=== PATIENT | female | born 1960 | race African-American/Black ===

== ENCOUNTER 2017-06-10 07:04 | Inpatient (IN) | payer MEDICARE, MEDICAID ==
[~2017-06-10] VITALS: Ht 172.7 cm; Wt 94.3 kg
[~2017-06-10 07:04] MED LIST: AMLODIPINE BESYL5 MG ORAL; DEPAKOTE500 MG PO; DICLOFENAC SODI75 MG ORAL; DITROPAN10 MG ORAL; JANUVIA100 MG ORAL; LOSARTAN POTASS50 MG ORAL; METFORMIN HCL1000 M1 ORAL; OMEPRAZOLE40 M1 ORAL; PAXIL20 MG ORAL; PRANDIN1 MG ORAL; ROXICODONE15 MG ORAL; SEROQUEL100 MG ORAL; SOMA350 MG PO
[2017-06-10 07:08] VITALS: BP 129/82
[2017-06-10] MEDS ORDERED: HYDROmorphone 1mg/ml Carpuject IVP ONE (07:30)
[2017-06-10] MEDS ORDERED: DiphenhydrAMINE 50mg/ml Inj IVP ONE (07:30)
[2017-06-10] MEDS ORDERED: XYZAL5 MG ORAL (07:38)
--- NOTE | 2017-06-10 07:41 | Emergency Room Report ---
History of Present Illness General Chief Complaint: Abdominal Pain Source: Patient Present Illness HPI The patient presents with abdominal pain. She was seen at [facility] and diagnosed with pancreatitis. The pain has not been controlled well. She's not been vomiting today but has trouble keeping down food. When she does eat the pain intensifies. It's now 8/10, constant, aching and pressure radiates to her back. She tried taking some hydrocodone at home without help. Denies hematemesis, melena, hematochezia. She's had night sweats. Also she felt itching on her abdomen. Medicine was recently prescribed for this. The patient also has diabetes and a new medicine was prescribed orally for her. She states her sugar this morning was 167. Denies fevers or chills. She feels weak and she's lost weight. Endoscopy has been performed. There's a dilated common bile duct without any obstruction. She states the tumor markers have been elevated. They've been unable to find if there is a source for the tumor markers. No dysuria. She is worried of dx and that she might have cancer. This is an outpatient note from 2015: Referred by Dr. Guzman. Seen by Dr. Mcintosh at [facility]. S/P EGD and colonoscopy in June 2014. Continues to report abdominal pain, epigastric radiating through the back, weight loss, and diarrhea. Loss of about 17 lbs. Reports that pain ongoing for about x 1 year, but getting worse x few months, with diarrhea x 2 weeks. Stool tests are still pending. MRCP was read as normal. Ultrasound on 03/03/14 shows prominent pancreatic duct and repeat ultrasound on 06/23/[address] was noted as unremarkable. PMH: GERD, Depression, HTN, kidney stones, bipolar. PSHX: Appendectomy, umbilical hernia repair, tonsillectomy, left rotator cuff repair. ROS: abdominal pain, weight loss, diarrhea. Denies chest pain, SOB, muscle weakness, melena, hematochezia, dysuria, neurological symptoms. FHx: Leukemia-brother, breast cancer-grandmother, renal cancer-mother. Soc. Hx. No smoking, No ETOH use, no illicit drugs. Allergies: Coded Allergies: No Known Allergies (Unverified , 09/22/14) Patient History Past Medical History: see triage record Past Surgical History: appy, other - umbilical hernia repair Social History: Denies: smoking, alcohol use Social History Narrative Moravian Reviewed Nursing Documentation: PMH: Agreed, PSxH: Agreed Nursing Documentation-PMH Hx Cardiac Problems: Yes Hx Hypertension: Yes Hx Diabetes: Yes Hx Cancer: No Hx Gastrointestinal Problems: Yes Hx Neurological Problems: No Review of Systems All Other Systems: negative except mentioned in HPI Physical Exam Vital Signs Date Time Temp Pulse Resp B/P (MAP) Pulse Ox O2 Delivery O2 Flow Rate FiO2 06/10/17 07:08 97.5 87 20 129/82 97 Room Air Sp02 EP Interpretation: reviewed, normal General Appearance: well appearing, GCS 15, mild distress Head: normocephalic Eyes: bilateral eye normal inspection, bilateral eye PERRL ENT: moist mucus membranes Neck: supple Respiratory: lungs clear, normal breath sounds Cardiovascular #1: regular rate, rhythm Cardiovascular #2: 2+ radial (R) Gastrointestinal: normal inspection, normal bowel sounds, no mass, non- distended, no guarding, no rebound, tenderness, overweight Genitourinary: no CVA tenderness Musculoskeletal: back normal, gait/station normal, normal range of motion, no calf tenderness Neurologic: alert, oriented x3, grossly normal Psychiatric: mood/affect normal Skin: normal inspection, warm/dry Medical Decision Making Diagnostic Impression: Primary Impression: Abdominal pain Qualified Codes: R10.13 - Epigastric pain Additional Impressions: Diabetes Qualified Codes: E11.8 - Type 2 diabetes mellitus with unspecified complications Chronic pancreatitis Qualified Codes: K86.1 - Other chronic pancreatitis ER Course The patient presents with epigastric pain. Differential includes gastritis, GERD, pancreatitis, cholecystitis amongst others. We need to exclude acute myocardial infarction. She'll be evaluated with an EKG, and labs. X-rays are not indicated at this time. If she has leukocytosis we may order further studies. She'll be treated with IV hydration, analgesia and Pepcid. Attempt to get records from [facility]. EKG without injury. Labs with normal WBC, lipase, UA. Mildly elevated glucose. Improved with dilaudid, but still with persistent nausea and pain. Dr. Mcintosh requests admission for further evaluation and pain control. Admit med Dr. Centeno. Laboratory Tests Test 06/10/17 07:10 06/10/17 07:25 06/10/17 07:35 Urine Color Pale yellow Urine Appearance Clear Urine pH 5 (4.5-8.0) Urine Specific [place] 1.010 (1.005-1.035) Urine Protein Negative (NEGATIVE) Urine Glucose (UA) 4+ (NEGATIVE) H Urine Ketones Negative (NEGATIVE) Urine Occult Blood Negative (NEGATIVE) Urine Nitrite Negative (NEGATIVE) Urine Bilirubin Negative (NEGATIVE) Urine Urobilinogen Normal MG/DL (0.0-1.0) Urine Leukocyte Esterase Negative (NEGATIVE) Alpha Fetoprotein Pending CA 15-3 Antigen Pending CA 125 Antigen Pending White Blood Count 6.5 K/UL (4.8-10.8) Red Blood Count 4.57 M/UL (4.20-5.40) Hemoglobin 12.5 G/DL (12.0-16.0) Hematocrit 38.6 % (37.0-47.0) Mean Corpuscular Volume 85 FL (80-99) Mean Corpuscular Hemoglobin 27.3 PG (27.0-31.0) Mean Corpuscular Hemoglobin Concent 32.3 G/DL (32.0-36.0) Red Cell Distribution Width 13.3 % (11.6-14.8) Platelet Count 288 K/UL (150-450) Mean Platelet Volume 7.0 FL (6.5-10.1) Neutrophils (%) (Auto) 57.2 % (45.0-75.0) Lymphocytes (%) (Auto) 31.6 % (20.0-45.0) Monocytes (%) (Auto) 6.5 % (1.0-10.0) Eosinophils (%) (Auto) 3.0 % (0.0-3.0) Basophils (%) (Auto) 1.8 % (0.0-2.0) Prothrombin Time 10.4 SEC (9.30-11.50) Prothrombin Time INR 1.0 (0.9-1.1) PTT 26 SEC (23-33) Sodium Level 140 MMOL/L (136-145) Potassium Level 4.1 MMOL/L (3.5-5.1) Chloride Level 101 MMOL/L (98-107) Carbon Dioxide Level 30 MMOL/L (21-32) Anion Gap 9 mmol/L (5-15) Blood Urea Nitrogen 10 mg/dL (7-18) Creatinine 0.8 MG/DL (0.55-1.30) Estimate Glomerular Filtration Rate > 60 mL/min (>60) Glucose Level 153 MG/DL (74-106) H Calcium Level 9.5 MG/DL (8.5-10.1) Total Bilirubin 0.5 MG/DL (0.2-1.0) Aspartate Amino Transferase (AST) 14 U/L (15-37) L Alanine Aminotransferase (ALT) 20 U/L (12-78) Alkaline Phosphatase 100 U/L (46-116) Troponin I 0.000 ng/mL (0.000-0.056) Total Protein 8.4 G/DL (6.4-8.2) H Albumin 4.0 G/DL (3.4-5.0) Globulin 4.4 g/dL Albumin/Globulin Ratio 0.9 (1.0-2.7) L Lipase 114 U/L (73-393) EKG Diagnostic Results Rate: normal Rhythm: NSR ST Segments: no acute changes Rhythm Strip Diag. Results EP Interpretation: yes Rhythm: NSR, no PVC's, no ectopy Last Vital Signs Date Time Temp Pulse Resp B/P (MAP) Pulse Ox O2 Delivery O2 Flow Rate FiO2 06/10/17 16:00 97.9 67 17 126/67 96 06/10/17 10:15 Room Air Status: improved Disposition: ADMITTED INPATIENT Condition: Serious Elio Reese M.D. Jun 10, 2017 07:41
[2017-06-10 07:49] LABS: BASOPHILS % (AUTO) 1.8 % (0.0-2.0); HEMATOCRIT 38.6 % (37.0-47.0); HEMOGLOBIN 12.5 G/DL (12.0-16.0); LYMPHOCYTES % (AUTO) 31.6 % (20.0-45.0); MEAN CORPUSCULAR VOLUME 85 FL (80-99); MONOCYTES % (AUTO) 6.5 % (1.0-10.0); NEUTROPHILS % (AUTO) 57.2 % (45.0-75.0); PLATELET COUNT 288 K/UL (150-450); RED BLOOD COUNT 4.57 M/UL (4.20-5.40); RED CELL DISTRIBUTION WIDTH 13.3 % (11.6-14.8); WHITE BLOOD COUNT 6.5 K/UL (4.8-10.8)
[2017-06-10 07:53] LABS: APPEARANCE,URINE CLEAR; BILIRUBIN, URINE NEGATIVE (NEGATIVE); COLOR,URINE PALE YELLOW; GLUCOSE, URINE (UA) 4+ (NEGATIVE); KETONES,URINE NEGATIVE (NEGATIVE); LEUKOCYTE ESTERASE ,URINE NEGATIVE (NEGATIVE); NITRITE,URINE NEGATIVE (NEGATIVE); PH,URINE 5 (4.5-8.0); PROTEIN,URINE NEGATIVE (NEGATIVE); UROBILINOGEN,URINE NORMAL MG/DL (0.0-1.0)
[2017-06-10 08:17] LABS: ALANINE AMINOTRANSFERASE 20 U/L (12-78); ALBUMIN/GLOBULIN RATIO 0.9 (1.0-2.7); ALKALINE PHOSPHATASE 100 U/L (46-116); ANION GAP 9 mmol/L (5-15); ASPARTATE AMINO TRANSFERASE 14 U/L (15-37); BILIRUBIN,TOTAL 0.5 MG/DL (0.2-1.0); BLOOD UREA NITROGEN 10 mg/dL (7-18); CALCIUM 9.5 MG/DL (8.5-10.1); CARBON DIOXIDE 30 MMOL/L (21-32); CHLORIDE 101 MMOL/L (98-107); CREATININE 0.8 MG/DL (0.55-1.30); POTASSIUM 4.1 MMOL/L (3.5-5.1); SODIUM 140 MMOL/L (136-145)
[2017-06-10 09:01] VITALS: BP 103/49
[2017-06-10 10:08] VITALS: BP 132/67
[2017-06-10 10:58] VITALS: BP 140/81
[2017-06-10] MEDS: HYDROmorphone 1mg/ml Carpuject IVP PRN ×2 (13:28→18:12)
[2017-06-10 16:00] VITALS: BP 126/67
--- NOTE | 2017-06-10 16:21 | GI Initial Consult Note ---
Shannon Baldwinoi N.P. 06/10/17 1621: History of Present Illness General Date patient seen: Jun 10, 2017 Time patient seen: 16:07 Reason for Hospitalization: Abdominal Pain Referring physician: ANDRA BARRIENTOS Reason for Consultation: CHRONIC PANCREATITIS Present Illness HPI The patient presents with abdominal pain. She was seen at [facility] and diagnosed with pancreatitis. The pain has not been controlled well. She's not been vomiting today but has trouble keeping down food. When she does eat the pain intensifies. Snout 8/10, constant, aching and pressure radiates to her back. She tried taking some hydrocodone at home. Denies hematemesis, melena, hematochezia. She's had night sweats. Also she felt itching on her abdomen. Medicine was recently prescribed for this. The patient also has diabetes any new medicine was prescribed orally for her. She states her sugar this morning was 167. Denies fevers or chills. She feels weak and she's lost weight. Endoscopy has been performed. There's a dilated common bile duct without any obstruction. She states the tumor markers have been elevated. They've been unable to find if there is a source for the tumor markers. No dysuria. This is an outpatient note from 2015: Referred by Dr. Guzman. Seen by Dr. Syed at [facility]. S/P EGD and colonoscopy in June 2014. Continues to report abdominal pain, epigastric radiating through the back, weight loss, and diarrhea. Loss of about 17 lbs. Reports that pain ongoing for about x 1 year, but getting worse x few months, with diarrhea x 2 weeks. Stool tests are still pending. MRCP was read as normal. Ultrasound on 03/03/14 shows prominent pancreatic duct and repeat ultrasound on 06/23/[address] was noted as unremarkable. EUS in 2014 SUMMARY OF FINDINGS: A large fatty liver, otherwise normal endoscopic ultrasound without any pancreatic duct dilatation or any other pancreatic lesion. Home Meds Reported Medications Levocetirizine Dihydrochloride (XYZAL) 5 Mg Tablet, 5 MG ORAL for 30 Days, MG 0 Refills 06/10/17 Losartan Potassium* (LOSARTAN POTASSIUM*) 50 Mg Tablet, 100 MG ORAL DAILY, TAB 09/22/14 Amlodipine Besylate* (AMLODIPINE BESYLATE*) 5 Mg Tablet, 10 MG ORAL DAILY, TAB 09/22/14 Oxybutynin Chloride (Oxybutynin Chloride) 10 Mg Tab, 5 MG ORAL QHS, TAB 09/22/14 Carisoprodol* (SOMA*) 350 Mg Tablet, 350 MG PO BID, TAB 09/22/14 OXYCODONE HCl* (ROXICODONE*) 15 Mg Tablet, 15 MG ORAL Q6H Y for For Pain, TAB 09/22/14 Omeprazole (OMEPRAZOLE) 40 Mg Capsule.dr, 40 MG ORAL DAILY, CAP 09/22/14 Repaglinide (Prandin) 1 Mg Tab, 1 MG ORAL THREE TIMES A DAY, TAB 09/22/14 Diclofenac Sod* (VOLTAREN*) 75 Mg Tablet.dr, 75 MG ORAL BID, TAB 09/22/14 Sitagliptin (Januvia) 100 Mg Tab, 100 MG ORAL DAILY, TAB 09/22/14 Metformin Hcl* (METFORMIN HCL*) 1,000 Mg Tablet, 1000 MG ORAL BID, TAB 09/22/14 Paroxetine Hcl* (PAXIL*) 20 Mg Tablet, 20 MG ORAL DAILY, TAB 0 Refills 09/22/14 Divalproex Sodium (Depakote) 500 Mg Tabec, 500 MG PO TID, TAB 09/22/14 Quetiapine Fumarate* (SEROQUEL*) 100 Mg Tablet, 50 MG ORAL QHS, TAB 09/22/14 Med list reviewed/reconciled: Yes Allergies: Coded Allergies: No Known Allergies (Unverified , 09/22/14) Patient History History Provided By: Patient, Medical Record PMH Narrative PMH: GERD, Depression, HTN, kidney stones, bipolar. PSHX: Appendectomy, umbilical hernia repair, tonsillectomy, left rotator cuff repair. ROS: abdominal pain, weight loss, diarrhea. Denies chest pain, SOB, muscle weakness , melena, hematochezia, dysuria, neurological symptoms. FHx: Leukemia-brother , breast cancer-grandmother, renal cancer-mother. Soc. Hx. No smoking, No ETOH use, no illicit drugs. Past Medical History: see triage record Social History: Denies: smoking, alcohol use Reviewed Nursing Documentation: PMH: Agreed, PSxH: Agreed Nursing Documentation-PMH Hx Cardiac Problems: Yes Hx Hypertension: Yes Hx Diabetes: Yes Hx Cancer: No Hx Gastrointestinal Problems: Yes Hx Neurological Problems: No Social History: Denies: smoking, alcohol use, drug use, other Review of Systems All Other Systems: negative except mentioned in HPI Physical Exam Vital Signs Date Time Temp Pulse Resp B/P (MAP) Pulse Ox O2 Delivery O2 Flow Rate FiO2 06/10/17 07:08 97.5 87 20 129/82 97 Room Air Sp02 EP Interpretation: reviewed, normal Labs Laboratory Tests Test 06/10/17 07:10 06/10/17 07:25 06/10/17 07:35 Urine Color Pale yellow Urine Appearance Clear Urine pH 5 (4.5-8.0) Urine Specific [place] 1.010 (1.005-1.035) Urine Protein Negative (NEGATIVE) Urine Glucose (UA) 4+ (NEGATIVE) H Urine Ketones Negative (NEGATIVE) Urine Occult Blood Negative (NEGATIVE) Urine Nitrite Negative (NEGATIVE) Urine Bilirubin Negative (NEGATIVE) Urine Urobilinogen Normal MG/DL (0.0-1.0) Urine Leukocyte Esterase Negative (NEGATIVE) Alpha Fetoprotein Pending CA 15-3 Antigen Pending CA 125 Antigen Pending White Blood Count 6.5 K/UL (4.8-10.8) Red Blood Count 4.57 M/UL (4.20-5.40) Hemoglobin 12.5 G/DL (12.0-16.0) Hematocrit 38.6 % (37.0-47.0) Mean Corpuscular Volume 85 FL (80-99) Mean Corpuscular Hemoglobin 27.3 PG (27.0-31.0) Mean Corpuscular Hemoglobin Concent 32.3 G/DL (32.0-36.0) Red Cell Distribution Width 13.3 % (11.6-14.8) Platelet Count 288 K/UL (150-450) Mean Platelet Volume 7.0 FL (6.5-10.1) Neutrophils (%) (Auto) 57.2 % (45.0-75.0) Lymphocytes (%) (Auto) 31.6 % (20.0-45.0) Monocytes (%) (Auto) 6.5 % (1.0-10.0) Eosinophils (%) (Auto) 3.0 % (0.0-3.0) Basophils (%) (Auto) 1.8 % (0.0-2.0) Prothrombin Time 10.4 SEC (9.30-11.50) Prothromb Time International Ratio 1.0 (0.9-1.1) Activated Partial Thromboplast Time 26 SEC (23-33) Sodium Level 140 MMOL/L (136-145) Potassium Level 4.1 MMOL/L (3.5-5.1) Chloride Level 101 MMOL/L (98-107) Carbon Dioxide Level 30 MMOL/L (21-32) Anion Gap 9 mmol/L (5-15) Blood Urea Nitrogen 10 mg/dL (7-18) Creatinine 0.8 MG/DL (0.55-1.30) Estimat Glomerular Filtration Rate > 60 mL/min (>60) Glucose Level 153 MG/DL (74-106) H Calcium Level 9.5 MG/DL (8.5-10.1) Total Bilirubin 0.5 MG/DL (0.2-1.0) Aspartate Amino Transf (AST/SGOT) 14 U/L (15-37) L Alanine Aminotransferase (ALT/SGPT) 20 U/L (12-78) Alkaline Phosphatase 100 U/L (46-116) Troponin I 0.000 ng/mL (0.000-0.056) Total Protein 8.4 G/DL (6.4-8.2) H Albumin 4.0 G/DL (3.4-5.0) Globulin 4.4 g/dL Albumin/Globulin Ratio 0.9 (1.0-2.7) L Lipase 114 U/L (73-393) General Appearance: well appearing, no apparent distress, alert Head: normocephalic EENT: PERRL/EOMI, normal ENT inspection Neck: supple Respiratory: normal breath sounds, no respiratory distress Cardiovascular: normal rate Gastrointestinal: normal inspection, non tender, soft, normal bowel sounds, non -distended Rectal: deferred Genitourinary: no CVA tenderness Musculoskeletal: normal inspection, back normal Neurologic: normal inspection, alert, oriented x3, responsive Psychiatric: normal inspection, judgement/insight normal, memory normal Skin: normal inspection, normal color, no rash, warm/dry, palpation normal, well hydrated Lymphatic: normal inspection, no adenopathy Current Medications Current Medications Medications (Trade) Dose Ordered Sig/Elizabeth Route PRN Reason Start Time Stop Time Status Last Admin Dose Admin Amlodipine Besylate (Norvasc) 10 mg DAILY ORAL 06/11/17 09:00 07/11/17 08:59 UNV Carisoprodol (Soma) 350 mg BID ORAL 06/10/17 18:00 07/10/17 17:59 UNV Diphenhydramine HCl (Benadryl) 25 mg Q6H PRN IVP Itching 06/10/17 15:15 07/10/17 15:14 Hydromorphone HCl (Dilaudid) 1 mg Q4H PRN IVP For Pain Scale 4-10 06/10/17 13:00 06/17/17 12:59 06/10/17 13:28 Metformin HCl (Glucophage) 1,000 mg BID ORAL 06/10/17 18:00 07/10/17 17:59 UNV Ondansetron HCl (Zofran) 4 mg Q6H PRN IVP Nausea & Vomiting 06/10/17 11:30 07/10/17 11:29 Pantoprazole (Protonix) 40 mg DAILY IVP 06/11/17 09:00 07/11/17 08:59 Quetiapine Fumarate (SEROquel) 50 mg QHS ORAL 06/10/17 21:00 07/10/17 20:59 UNV Sodium Chloride 1,000 ml @ 300 mls/hr Q3H20M IV 06/10/17 07:30 07/10/17 07:29 06/10/17 07:40 GI: Plan Problems: (1) Abdominal pain (2) Diabetes (3) Bipolar 1 disorder (4) Obesity (5) Weight loss (6) Diarrhea Plan EUS in 2014 >> fatty liver CBC, CMP, lipase reviewed >> unremarkable upper abdominal pain with radiation diarrhea with consistency of fat symptomatic treatment ordered abdominal U/S CLD, adv as tolerated ordered for stool studies, stool fat, culture for persistent diarrhea - will consider imodium/lomotil after stool collection - will consider Pancrease pain mgmt DM mgmt ppi fu labs, tumor markers Discussed with Dr. Syed. Thank you for this patient referral, we will follow. ELANA SYED 06/12/17 1150: History of Present Illness General Reason for Hospitalization: Abdominal Pain Present Illness Home Meds Reported Medications Levocetirizine Dihydrochloride (XYZAL) 5 Mg Tablet, 5 MG ORAL for 30 Days, MG 0 Refills 06/10/17 Losartan Potassium* (LOSARTAN POTASSIUM*) 50 Mg Tablet, 100 MG ORAL DAILY, TAB 09/22/14 Amlodipine Besylate* (AMLODIPINE BESYLATE*) 5 Mg Tablet, 10 MG ORAL DAILY, TAB 09/22/14 Oxybutynin Chloride (Oxybutynin Chloride) 10 Mg Tab, 5 MG ORAL QHS, TAB 09/22/14 Carisoprodol* (SOMA*) 350 Mg Tablet, 350 MG PO BID, TAB 09/22/14 OXYCODONE HCl* (ROXICODONE*) 15 Mg Tablet, 15 MG ORAL Q6H Y for For Pain, TAB 09/22/14 Omeprazole (OMEPRAZOLE) 40 Mg Capsule.dr, 40 MG ORAL DAILY, CAP 09/22/14 Repaglinide (Prandin) 1 Mg Tab, 1 MG ORAL THREE TIMES A DAY, TAB 09/22/14 Diclofenac Sod* (VOLTAREN*) 75 Mg Tablet.dr, 75 MG ORAL BID, TAB 09/22/14 Sitagliptin (Januvia) 100 Mg Tab, 100 MG ORAL DAILY, TAB 09/22/14 Metformin Hcl* (METFORMIN HCL*) 1,000 Mg Tablet, 1000 MG ORAL BID, TAB 09/22/14 Paroxetine Hcl* (PAXIL*) 20 Mg Tablet, 20 MG ORAL DAILY, TAB 0 Refills 09/22/14 Divalproex Sodium (Depakote) 500 Mg Tabec, 500 MG PO TID, TAB 09/22/14 Quetiapine Fumarate* (SEROQUEL*) 100 Mg Tablet, 50 MG ORAL QHS, TAB 09/22/14 Allergies: Coded Allergies: No Known Allergies (Unverified , 09/22/14) GI: Plan Plan The patient was seen and examined at bedside and all new and available data was reviewed in the patients chart. I agree with the above findings, impression and plan. (Patient seen earlier today. Signature stamp does not reflect patient encounter time.). - MD Nicolasa Morton,[facility] Rod N.P. Jun 10, 2017 16:21 ELANA SYED Jun 12, 2017 11:50
[2017-06-10] MEDS: metFORMIN 500mg tab ORAL SCH (18:00)
[2017-06-10] MEDS: DiphenhydrAMINE 50mg/ml Inj IVP PRN (21:09)
[2017-06-11] VITALS: BP 108/46
[2017-06-11] MEDS: HYDROmorphone 1mg/ml Carpuject IVP PRN ×4 (02:09→20:22)
[2017-06-11 07:40] LABS: ALANINE AMINOTRANSFERASE 21 U/L (12-78); ALBUMIN 3.5 G/DL (3.4-5.0); ALBUMIN/GLOBULIN RATIO 0.8 (1.0-2.7); ALKALINE PHOSPHATASE 98 U/L (46-116); ANION GAP 8 mmol/L (5-15); ASPARTATE AMINO TRANSFERASE 14 U/L (15-37); BILIRUBIN,TOTAL 0.6 MG/DL (0.2-1.0); BLOOD UREA NITROGEN 11 mg/dL (7-18); CALCIUM 9.2 MG/DL (8.5-10.1); CARBON DIOXIDE 28 MMOL/L (21-32); CHLORIDE 103 MMOL/L (98-107); CREATININE 0.8 MG/DL (0.55-1.30); SODIUM 139 MMOL/L (136-145)
[2017-06-11 07:57] LABS: BASOPHILS % (AUTO) 1.1 % (0.0-2.0); EOSINOPHILS % (AUTO) 2.8 % (0.0-3.0); HEMATOCRIT 36.8 % (37.0-47.0); HEMOGLOBIN 12.2 G/DL (12.0-16.0); LYMPHOCYTES % (AUTO) 31.6 % (20.0-45.0); MEAN CORPUSCULAR VOLUME 84 FL (80-99); MONOCYTES % (AUTO) 7.1 % (1.0-10.0); NEUTROPHILS % (AUTO) 57.4 % (45.0-75.0); PLATELET COUNT 259 K/UL (150-450); RED BLOOD COUNT 4.37 M/UL (4.20-5.40); WHITE BLOOD COUNT 5.6 K/UL (4.8-10.8)
[2017-06-11 08:20] VITALS: BP 132/84
--- NOTE | 2017-06-11 08:56 | Diagnostic Imaging Report ---
Indication: Abdominal pain Technique: Murphy-scale and duplex images of the upper abdomen were obtained Comparison: none Findings: Gallbladder is unremarkable, without stones, wall thickening, nor pericholecystic fluid. Common bile duct measures 3 mm in diameter. No intrahepatic biliary ductal dilatation. Liver demonstrates normal echogenicity, no focal abnormality. Portal vein and hepatic veins are patent. Pancreas is unremarkable. Spleen is unremarkable. Left kidney measures 11.1 cm in length. Right kidney measures 4.6 cm length. Both kidneys demonstrate normal echogenicity. There is no hydronephrosis. No focal abnormality . Non-aneurysmal abdominal aorta . Impression: Negative
[2017-06-11] MEDS: metFORMIN 500mg tab ORAL SCH ×2 (09:04→18:45)
[2017-06-11] MEDS: Pantoprazole Inj IVP SCH (09:05)
--- NOTE | 2017-06-11 09:05 | Consultation ---
History of Present Illness General Date patient seen: Jun 11, 2017 Chief Complaint: Referring physician: Reason for Consultation: Present Illness Allergies: Coded Allergies: No Known Allergies (Unverified , 09/22/14) Medication History Scheduled Amlodipine Besylate* (Amlodipine Besylate*), 10 MG ORAL DAILY, (Reported) Carisoprodol* (Soma*), 350 MG PO BID, (Reported) Diclofenac Sod* (Voltaren*), 75 MG ORAL BID, (Reported) Divalproex Sodium (Depakote), 500 MG PO TID, (Reported) Losartan Potassium* (Losartan Potassium*), 100 MG ORAL DAILY, (Reported) Metformin Hcl* (Metformin Hcl*), 1,000 MG ORAL BID, (Reported) Omeprazole (Omeprazole), 40 MG ORAL DAILY, (Reported) Oxybutynin Chloride (Oxybutynin Chloride), 5 MG ORAL QHS, (Reported) Paroxetine Hcl* (Paxil*), 20 MG ORAL DAILY, (Reported) Quetiapine Fumarate* (Seroquel*), 50 MG ORAL QHS, (Reported) Repaglinide (Prandin), 1 MG ORAL THREE TIMES A DAY, (Reported) Sitagliptin (Januvia), 100 MG ORAL DAILY, (Reported) Scheduled PRN OXYCODONE HCl* (Roxicodone*), 15 MG ORAL Q6H PRN for For Pain, (Reported) Miscellaneous Medications Levocetirizine Dihydrochloride (Xyzal), 5 MG ORAL, (Reported) Patient History Healthcare decision maker Resuscitation status Advanced Directive on File No Physical Exam Last 24 Hour Vital Signs Date Time Temp Pulse Resp B/P (MAP) Pulse Ox O2 Delivery O2 Flow Rate FiO2 06/11/17 08:20 98.2 84 20 132/84 95 06/11/17 00:00 97.9 65 18 108/46 93 Room Air 06/10/17 16:00 97.9 67 17 126/67 96 06/10/17 10:58 98.1 69 20 140/81 97 06/10/17 10:15 67 14 132/64 98 Room Air 06/10/17 10:08 97.8 70 13 132/67 98 Room Air Intake and Output 06/10/17 06/11/17 19:00 07:00 Intake Total 600 ml Balance 600 ml IV Total 600 ml # Voids 2 2 Laboratory Tests Test 06/11/17 06:15 White Blood Count 5.6 K/UL (4.8-10.8) Red Blood Count 4.37 M/UL (4.20-5.40) Hemoglobin 12.2 G/DL (12.0-16.0) Hematocrit 36.8 % (37.0-47.0) L Mean Corpuscular Volume 84 FL (80-99) Mean Corpuscular Hemoglobin 27.8 PG (27.0-31.0) Mean Corpuscular Hemoglobin Concent 33.1 G/DL (32.0-36.0) Red Cell Distribution Width 13.0 % (11.6-14.8) Platelet Count 259 K/UL (150-450) Mean Platelet Volume 7.3 FL (6.5-10.1) Neutrophils (%) (Auto) 57.4 % (45.0-75.0) Lymphocytes (%) (Auto) 31.6 % (20.0-45.0) Monocytes (%) (Auto) 7.1 % (1.0-10.0) Eosinophils (%) (Auto) 2.8 % (0.0-3.0) Basophils (%) (Auto) 1.1 % (0.0-2.0) Sodium Level 139 MMOL/L (136-145) Potassium Level 4.0 MMOL/L (3.5-5.1) Chloride Level 103 MMOL/L (98-107) Carbon Dioxide Level 28 MMOL/L (21-32) Anion Gap 8 mmol/L (5-15) Blood Urea Nitrogen 11 mg/dL (7-18) Creatinine 0.8 MG/DL (0.55-1.30) Estimat Glomerular Filtration Rate > 60 mL/min (>60) Glucose Level 131 MG/DL (74-106) H Calcium Level 9.2 MG/DL (8.5-10.1) Total Bilirubin 0.6 MG/DL (0.2-1.0) Aspartate Amino Transf (AST/SGOT) 14 U/L (15-37) L Alanine Aminotransferase (ALT/SGPT) 21 U/L (12-78) Alkaline Phosphatase 98 U/L (46-116) Total Protein 7.7 G/DL (6.4-8.2) Albumin 3.5 G/DL (3.4-5.0) Globulin 4.2 g/dL Albumin/Globulin Ratio 0.8 (1.0-2.7) L Height (Feet): 5 Height (Inches): 8.00 Weight (Pounds): 208 Medications Current Medications Medications (Trade) Dose Ordered Sig/Elizabeth Route PRN Reason Start Time Stop Time Status Last Admin Dose Admin Amlodipine Besylate (Norvasc) 10 mg DAILY ORAL 06/11/17 09:00 07/11/17 08:59 Carisoprodol (Soma) 350 mg BID ORAL 06/10/17 18:00 07/10/17 17:59 Diphenhydramine HCl (Benadryl) 25 mg Q6H PRN IVP Itching 06/10/17 15:15 07/10/17 15:14 06/10/17 21:09 Hydromorphone HCl (Dilaudid) 1 mg Q4H PRN IVP For Pain Scale 4-10 06/10/17 13:00 06/17/17 12:59 06/11/17 02:09 Metformin HCl (Glucophage) 1,000 mg BID ORAL 06/10/17 18:00 07/10/17 17:59 Ondansetron HCl (Zofran) 4 mg Q6H PRN IVP Nausea & Vomiting 06/10/17 11:30 07/10/17 11:29 06/11/17 02:08 Pantoprazole (Protonix) 40 mg DAILY IVP 06/11/17 09:00 07/11/17 08:59 Quetiapine Fumarate (SEROquel) 50 mg QHS ORAL 06/10/17 21:00 07/10/17 20:59 06/10/17 21:09 Assessment/Plan Assessment/Plan (1) Intractable abdominal pain (2) R/O Pancreatitis seen and dictated TRINA PERES Jun 11, 2017 09:05
[2017-06-11] MEDS ORDERED: HYDROcodone/Acetamin 10/325 tab ORAL PRN (09:15)
--- NOTE | 2017-06-11 11:19 | GI Progress Note ---
Assessment/Plan Problems: (1) Abdominal pain ICD Codes: R10.9 - Abdominal pain SNOMED: 99052999 Qualifiers: Qualified Codes: R10.13 - Epigastric pain (2) Diabetes ICD Codes: E11.9 - Diabetes SNOMED: 22479472 Qualifiers: Qualified Codes: E11.8 - Type 2 diabetes mellitus with unspecified complications (3) Obesity ICD Codes: E66.9 - Obesity SNOMED: 319012032 (4) Diarrhea ICD Codes: R19.7 - Diarrhea SNOMED: 65032553 Status: stable Status Narrative Discussed with Dr. Mcintosh. Assessment/Plan ?chronic pancreatitis EUS in 2015 >> fatty liver CBC, CMP, lipase reviewed >> unremarkable upper abdominal pain with radiation abdominal U/S >> negative symptomatic treatment adv to regular ADA diet ordered for stool studies, stool fat, culture for persistent diarrhea >> no BM since admission - will consider imodium/lomotil after stool collection pain mgmt DM mgmt ppi fu labs, tumor markers Subjective Subjective abdominal pain better no BM Objective Last 24 Hour Vital Signs Date Time Temp Pulse Resp B/P (MAP) Pulse Ox O2 Delivery O2 Flow Rate FiO2 06/11/17 09:05 84 132/84 06/11/17 08:20 98.2 84 20 132/84 95 06/11/17 00:00 97.9 65 18 108/46 93 Room Air 06/10/17 16:00 97.9 67 17 126/67 96 Intake and Output 06/10/17 06/11/17 19:00 07:00 Intake Total 600 ml Balance 600 ml IV Total 600 ml # Voids 2 2 Laboratory Tests Test 06/11/17 06:15 White Blood Count 5.6 K/UL (4.8-10.8) Red Blood Count 4.37 M/UL (4.20-5.40) Hemoglobin 12.2 G/DL (12.0-16.0) Hematocrit 36.8 % (37.0-47.0) L Mean Corpuscular Volume 84 FL (80-99) Mean Corpuscular Hemoglobin 27.8 PG (27.0-31.0) Mean Corpuscular Hemoglobin Concent 33.1 G/DL (32.0-36.0) Red Cell Distribution Width 13.0 % (11.6-14.8) Platelet Count 259 K/UL (150-450) Mean Platelet Volume 7.3 FL (6.5-10.1) Neutrophils (%) (Auto) 57.4 % (45.0-75.0) Lymphocytes (%) (Auto) 31.6 % (20.0-45.0) Monocytes (%) (Auto) 7.1 % (1.0-10.0) Eosinophils (%) (Auto) 2.8 % (0.0-3.0) Basophils (%) (Auto) 1.1 % (0.0-2.0) Sodium Level 139 MMOL/L (136-145) Potassium Level 4.0 MMOL/L (3.5-5.1) Chloride Level 103 MMOL/L (98-107) Carbon Dioxide Level 28 MMOL/L (21-32) Anion Gap 8 mmol/L (5-15) Blood Urea Nitrogen 11 mg/dL (7-18) Creatinine 0.8 MG/DL (0.55-1.30) Estimat Glomerular Filtration Rate > 60 mL/min (>60) Glucose Level 131 MG/DL (74-106) H Calcium Level 9.2 MG/DL (8.5-10.1) Total Bilirubin 0.6 MG/DL (0.2-1.0) Aspartate Amino Transf (AST/SGOT) 14 U/L (15-37) L Alanine Aminotransferase (ALT/SGPT) 21 U/L (12-78) Alkaline Phosphatase 98 U/L (46-116) Total Protein 7.7 G/DL (6.4-8.2) Albumin 3.5 G/DL (3.4-5.0) Globulin 4.2 g/dL Albumin/Globulin Ratio 0.8 (1.0-2.7) L Height (Feet): 5 Height (Inches): 8.00 Weight (Pounds): 208 General Appearance: WD/WN, no apparent distress, alert Cardiovascular: normal rate Respiratory/Chest: normal breath sounds, no respiratory distress Abdominal Exam: normal bowel sounds, non tender, soft Extremities: normal range of motion, non-tender Shannon Baldwin N.Cyndie Jun 11, 2017 11:19
[2017-06-11] MEDS: Naloxegol Oxalate 25mg tab ORAL SCH (11:22)
[2017-06-11 11:46] VITALS: BP 126/86
[2017-06-11] MEDS: DiphenhydrAMINE 50mg/ml Inj IVP PRN ×2 (14:31→21:22)
[2017-06-11 15:55] VITALS: BP 101/58
--- NOTE | 2017-06-11 19:05 | Cardiology Report ---
APPROVED REPORT EKG Measurement Heart [id number] Normal sinus rhythm Cannot rule out Anterior infarct, age undetermined Abnormal ECG
[2017-06-11 19:58] VITALS: BP 114/72
--- NOTE | 2017-06-12 01:30 | History and Physical Report ---
DATE OF ADMISSION: 06/10/2017 HISTORY OF PRESENT ILLNESS: The patient comes in and was admitted for chronic pancreatitis. Dr. Mcintosh follows this patient. She has been complaining of epigastric pain, nausea, and weight loss. For the past month or so, the patient also has back pain and has difficulty walking due to pain. She has also been having night sweats. The patient is also diabetic and has history of hypoglycemia. Dr. Davila sees her for diabetes management. The patient also has nausea. No vomiting. The patient states at times she has diarrhea and at times, she has constipation. The patient also has bipolar disorder and osteoarthritis. The patient denies history of gallstones. History of no drug or alcohol abuse. Denies orthopnea. Denies fever or chills. Denies cough. PAST MEDICAL HISTORY: Significant for history of hypertension, GERD, NIDDM, urinary incontinence, depression, bipolar, degenerative joint disease, and hernia. PAST SURGICAL HISTORY: Hysterectomy, hernia repair, right shoulder rotator cuff repair, rhinoplasty, tonsillectomy, and appendectomy. MEDICATIONS: Soma, amlodipine, Depakote, losartan, metformin, omeprazole, oxybutynin, Paxil, Prandin, and Januvia. ALLERGIES: No known allergies. FAMILY HISTORY: History of hypertension and diabetes. SOCIAL HISTORY: The patient denies history of smoking. No history of drug or alcohol abuse. REVIEW OF SYSTEMS: HEENT: Denies headaches. RESPIRATORY: Denies shortness of breath. Denies cough. CARDIOVASCULAR: Denies chest pain. Denies orthopnea. GASTROINTESTINAL: Reports abdominal pain and diarrhea and intermittently constipation. No rectal bleeding. Nausea. No vomiting for about a month. EXTREMITIES: Does have generalized pain, which is chronic. CENTRAL NERVOUS SYSTEM: Feels weak. No change in vision or speech pattern. PHYSICAL EXAMINATION: VITAL SIGNS: Temperature is 97.9, pulse is 65, and blood pressure is 108/46. HEENT: PERRLA. NECK: Supple. No lymphadenopathy. CHEST: Clear to auscultation. CARDIOVASCULAR: Regular rate and rhythm. GASTROINTESTINAL: Soft, nontender, and nondistended. No organomegaly. EXTREMITIES: A 1+ edema. Reflexes are equal on both sides. NEUROLOGICAL: Moves all 4 extremities. Oriented x3. LABORATORY DATA: Laboratory [place], WBC of 6.5, hemoglobin 12.5, and platelets 288,000. Sodium 140, potassium 4.1, BUN of 10, creatinine 0.8, and glucose of 153. Lipase of 140. ASSESSMENT AND PLAN: The patient has abdominal pain significant for pancreatitis, epigastric pain, nausea, weight loss, and elevated blood sugar. The patient has history of elevated blood sugar. The patient is going to be seen by Dr. De Jesus for the chronic pain syndrome as well as by Dr. Rivas, Dr. Mcintosh, and Dr. Teague and is going to be worked up for the etiology of abdominal pain. Emil Centeno M.D. DR: RANDY JOB#: [id number] CC:
[2017-06-12 04:00] VITALS: BP 120/76
[2017-06-12] MEDS: HYDROmorphone 1mg/ml Carpuject IVP PRN ×3 (05:05→21:00)
--- NOTE | 2017-06-12 06:00 | Consultation ---
DATE OF CONSULTATION: 06/10/2017 NOTE: INCOMPLETE DICTATION HEMATOLOGY/ONCOLOGY CONSULTATION CONSULTING PHYSICIAN: Otto Teague M.D. REQUESTING PHYSICIAN: Emil Centeno M.D. IDENTIFICATION DATA: Dear Dr. Centeno, The patient is a pleasant 56-year-old female with past medical history significant for seizure disorder, pancreatitis, and recent weight loss. She has been seen by Dr. Mcintosh status post EGD and colonoscopy in June 2014, continues to have reported recurrent abdominal pain radiating to the back without any significant diarrhea, however, has had weight loss with loss of 17 pounds. Hematology/Oncology Service was consulted given failure to thrive as well as recurrent weight loss. PAST MEDICAL HISTORY: Depression, GERD, hypertension, kidney stones, and bipolar disorder. PAST SURGICAL HISTORY: Appendectomy, umbilical hernia repair, tonsillectomy, and right rotator cuff repair. ALLERGIES: No known drug allergies. FAMILY HISTORY: Leukemia in the brother, breast cancer in grandmother, and renal cancer in the mother. SOCIAL HISTORY: No alcohol, tobacco, or illicit drug use per the patient. REVIEW OF SYSTEMS: CONSTITUTIONAL: Fatigue and some weight loss is noted. SKIN: No rashes, bumps, or itching. HEENT: No headache, hearing or vision changes. BREASTS: No lumps, pain, or discharge. PULMONARY: No cough, sputum, or shortness of breath. GASTROINTESTINAL: No nausea, vomiting, or diarrhea. GENITOURINARY: No dysuria, frequency, or urgency. MUSCULOSKELETAL: No joint swelling, muscle pain, or trauma. PHYSICAL EXAMINATION: VITAL SIGNS: Reviewed. GENERAL: No distress. PULMONARY: Decreased breath sounds. CARDIOVASCULAR: Regular rate. No S3 or S4. ABDOMEN: Soft and nontender. EXTREMITIES: No cyanosis, swelling, or edema. Otto Teague M.D. DR: CHAVEZ JOB#: [id number] CC:
[2017-06-12 07:13] LABS: BASOPHILS % (AUTO) 1.6 % (0.0-2.0); EOSINOPHILS % (AUTO) 3.6 % (0.0-3.0); HEMOGLOBIN 12.4 G/DL (12.0-16.0); LYMPHOCYTES % (AUTO) 30.8 % (20.0-45.0); MEAN CORPUSCULAR VOLUME 85 FL (80-99); MONOCYTES % (AUTO) 7.3 % (1.0-10.0); NEUTROPHILS % (AUTO) 56.7 % (45.0-75.0); PLATELET COUNT 232 K/UL (150-450); RED BLOOD COUNT 4.45 M/UL (4.20-5.40); RED CELL DISTRIBUTION WIDTH 13.5 % (11.6-14.8); WHITE BLOOD COUNT 6.4 K/UL (4.8-10.8)
[2017-06-12 07:16] LABS: ANION GAP 6 mmol/L (5-15); BLOOD UREA NITROGEN 14 mg/dL (7-18); CALCIUM 9.2 MG/DL (8.5-10.1); CARBON DIOXIDE 30 MMOL/L (21-32); CHLORIDE 103 MMOL/L (98-107); CREATININE 0.8 MG/DL (0.55-1.30); POTASSIUM 4.4 MMOL/L (3.5-5.1); SODIUM 139 MMOL/L (136-145)
[2017-06-12 08:00] VITALS: BP 114/72
[2017-06-12] MEDS: Naloxegol Oxalate 25mg tab ORAL SCH (09:00)
[2017-06-12] MEDS: metFORMIN 500mg tab ORAL SCH ×2 (09:00→18:50)
[2017-06-12] MEDS: Pantoprazole Inj IVP SCH (09:07)
[2017-06-12] MEDS: DiphenhydrAMINE 50mg/ml Inj IVP PRN ×2 (11:31→18:52)
[2017-06-12 12:15] VITALS: BP 119/63
--- NOTE | 2017-06-12 12:18 | GI Progress Note ---
Assessment/Plan Problems: (1) Abdominal pain ICD Codes: R10.9 - Abdominal pain SNOMED: 24311450 Qualifiers: Qualified Codes: R10.13 - Epigastric pain (2) Diabetes ICD Codes: E11.9 - Diabetes SNOMED: 40554504 Qualifiers: Qualified Codes: E11.8 - Type 2 diabetes mellitus with unspecified complications (3) Obesity ICD Codes: E66.9 - Obesity SNOMED: 021392584 (4) Diarrhea ICD Codes: R19.7 - Diarrhea SNOMED: 98543015 Status: stable Status Narrative Discussed with Dr. Mcintosh. Assessment/Plan ?chronic pancreatitis EUS in 2015 >> fatty liver CBC, CMP, lipase reviewed >> unremarkable upper abdominal pain with radiation abdominal U/S >> negative symptomatic treatment adv to regular ADA diet ordered for stool studies, stool fat, culture for persistent diarrhea pain mgmt DM mgmt ppi fu labs, tumor markers Subjective Subjective abdominal pain better had BM Objective Last 24 Hour Vital Signs Date Time Temp Pulse Resp B/P (MAP) Pulse Ox O2 Delivery O2 Flow Rate FiO2 06/12/17 08:00 97.9 85 20 114/72 96 06/12/17 05:35 99.3 06/12/17 04:00 97.9 67 20 120/76 100 06/11/17 19:58 99.3 84 18 114/72 95 06/11/17 19:44 99.3 06/11/17 15:55 98.2 84 20 101/58 97 Intake and Output 06/11/17 06/12/17 19:00 07:00 Intake Total 1320 ml Balance 1320 ml Intake Oral 1320 ml # Voids 3 4 Laboratory Tests Test 06/11/17 21:00 06/12/17 05:00 06/12/17 05:03 Stool Fat Screen Pending Stool Occult Blood Pending Sodium Level 139 MMOL/L (136-145) Potassium Level 4.4 MMOL/L (3.5-5.1) Chloride Level 103 MMOL/L (98-107) Carbon Dioxide Level 30 MMOL/L (21-32) Anion Gap 6 mmol/L (5-15) Blood Urea Nitrogen 14 mg/dL (7-18) Creatinine 0.8 MG/DL (0.55-1.30) Estimat Glomerular Filtration Rate > 60 mL/min (>60) Glucose Level 136 MG/DL (74-106) H Calcium Level 9.2 MG/DL (8.5-10.1) White Blood Count 6.4 K/UL (4.8-10.8) Red Blood Count 4.45 M/UL (4.20-5.40) Hemoglobin 12.4 G/DL (12.0-16.0) Hematocrit 38.0 % (37.0-47.0) Mean Corpuscular Volume 85 FL (80-99) Mean Corpuscular Hemoglobin 27.8 PG (27.0-31.0) Mean Corpuscular Hemoglobin Concent 32.6 G/DL (32.0-36.0) Red Cell Distribution Width 13.5 % (11.6-14.8) Platelet Count 232 K/UL (150-450) Mean Platelet Volume 8.7 FL (6.5-10.1) Neutrophils (%) (Auto) 56.7 % (45.0-75.0) Lymphocytes (%) (Auto) 30.8 % (20.0-45.0) Monocytes (%) (Auto) 7.3 % (1.0-10.0) Eosinophils (%) (Auto) 3.6 % (0.0-3.0) H Basophils (%) (Auto) 1.6 % (0.0-2.0) Height (Feet): 5 Height (Inches): 8.00 Weight (Pounds): 208 General Appearance: WD/WN, no apparent distress, alert, obese Cardiovascular: normal rate Respiratory/Chest: normal breath sounds, no respiratory distress Abdominal Exam: normal bowel sounds, non tender, soft Extremities: normal range of motion, non-tender Shannon Baldwin N.P. Jun 12, 2017 12:18
--- NOTE | 2017-06-12 14:48 | General Progress Note ---
Assessment/Plan Assessment/Plan (1) Intractable abdominal pain (2) Pancreatitis we will continued the Dilaudid, norco and Neurontin. D/w Dr. De Jesus and he concurred. Subjective Date patient seen: Jun 12, 2017 Time patient seen: 02:30 - pm Constitutional: Reports: no symptoms HEENT: Reports: no symptoms Cardiovascular: Reports: no symptoms Respiratory: Reports: no symptoms Gastrointestinal/Abdominal: Reports: abdominal pain Genitourinary: Reports: no symptoms Neurologic/Psychiatric: Reports: no symptoms Endocrine: Reports: no symptoms Hematologic/Lymphatic: Reports: no symptoms Allergies: Coded Allergies: No Known Allergies (Unverified , 09/22/14) Subjective Patient is in bed and reports that her pain has reduced to a 4/10 on the mediations. She went for CT scan of Chest, abdomen and pelvis. At this time is comfortable. Objective Last 24 Hour Vital Signs Date Time Temp Pulse Resp B/P (MAP) Pulse Ox O2 Delivery O2 Flow Rate FiO2 06/12/17 12:15 98.1 86 20 119/63 97 06/12/17 12:01 97.9 06/12/17 08:00 97.9 85 20 114/72 96 06/12/17 04:00 97.9 67 20 120/76 100 06/11/17 19:58 99.3 84 18 114/72 95 06/11/17 19:44 99.3 06/11/17 15:55 98.2 84 20 101/58 97 Intake and Output 06/11/17 06/12/17 19:00 07:00 Intake Total 1320 ml Balance 1320 ml Intake Oral 1320 ml # Voids 3 4 Laboratory Tests 06/11/17 21:00: Stool Fat Screen [Pending], Stool Occult Blood Negative 06/12/17 05:00: Sodium Level 139, Potassium Level 4.4, Chloride Level 103, Carbon Dioxide Level 30, Anion Gap 6, Blood Urea Nitrogen 14, Creatinine 0.8, Estimat Glomerular Filtration Rate > 60, Glucose Level 136H, Calcium Level 9.2 06/12/17 05:03: White Blood Count 6.4, Red Blood Count 4.45, Hemoglobin 12.4, Hematocrit 38.0, Mean Corpuscular Volume 85, Mean Corpuscular Hemoglobin 27.8, Mean Corpuscular Hemoglobin Concent 32.6, Red Cell Distribution Width 13.5, Platelet Count 232, Mean Platelet Volume 8.7, Neutrophils (%) (Auto) 56.7, Lymphocytes (%) (Auto) 30.8, Monocytes (%) (Auto) 7.3, Eosinophils (%) (Auto) 3.6H, Basophils (%) (Auto ) 1.6 Height (Feet): 5 Height (Inches): 8.00 Weight (Pounds): 208 General Appearance: no apparent distress, alert EENT: PERRL/EOMI, normal ENT inspection Neck: non-tender, normal alignment Cardiovascular: normal rate, regular rhythm Respiratory/Chest: decreased breath sounds Abdomen: tender Extremities: non-tender Edema: no edema noted Arm (L), no edema noted Arm (R), no edema noted Leg (L), no edema noted Leg (R), no edema noted Pedal (L), no edema noted Pedal (R), no edema noted Generalized Neurologic: alert, oriented x 3 Skin: warm/dry TRINA PERES Jun 12, 2017 14:48
[2017-06-12 15:51] VITALS: BP 116/73
--- NOTE | 2017-06-12 16:46 | Diagnostic Imaging Report ---
Indication: Weight loss. Failure to thrive. Assess for malignancy. Technique: CT of the test, abdomen and pelvis utilizing automated exposure control with intravenous contrast. Venous scanning performed. CT dose: Total DLP 2102.34 mGycm; CTDI vol 20.73,20.73 mGy Comparison: Correlation made to abdominal ultrasound from 06/10/2017 Findings: CT CHEST: No focal airspace consolidation, pleural effusion or pneumothorax. No discrete pulmonary nodule/lesion identified. Heart size within normal limits. There is no pericardial effusion. The main pulmonary artery is normal in caliber. No large saddle or central pulmonary embolism. Thoracic aorta is normal in caliber and without evidence to suggest dissection. There is conventional branching anatomy of the great vessels. Small, nonspecific bilateral axillary lymph nodes are noted, none which meet imaging size criteria for pathologic enlargement. Imaged portions of the thyroid gland are unremarkable in appearance. There is asymmetric skin thickening of the right breast (series 5 image #33). There is subtle asymmetric nodularity in the right breast tissue (series 5 image #41). CT ABDOMEN/PELVIS: Liver is enlarged, with the right lobe measuring 20 cm in craniocaudal length. No focal liver lesion is appreciated on this single phase study. Hepatic veins and portal veins appear patent. Gallbladder is unremarkable in appearance. No biliary ductal dilatation. Spleen, adrenal glands and pancreas are unremarkable in appearance. The kidneys enhance symmetrically. There is no contour deforming renal mass. There is a 5 mm well-circumscribed low-attenuation lesion in the lower pole of the right kidney (series 10 image #37) which is too small to fully characterize but likely represents a simple renal cyst. No evidence of urinary tract stones or hydronephrosis. Bladder is decompressed, limiting its evaluation. Patient is status post hysterectomy. There is no free intraperitoneal air or fluid. There is no bowel obstruction. No focal bowel wall thickening is appreciated. There is copious stool within the colon. The appendix is not visualized and may be surgically absent. Abdominal aorta is normal in caliber with scattered atherosclerotic calcifications. No pathologically enlarged abdominal pelvic lymphadenopathy identified. There is scar/infiltration in the region of the umbilicus, possibly postsurgical in etiology. There is mild degenerative change of the spine. No acute osseous abnormality is seen. A sclerotic focus in the right ischium is noted, likely a bone island/enostosis. There is evidence of prior surgery in the left shoulder, question rotator cuff repair. IMPRESSION: CT CHEST: Asymmetric skin thickening of the right breast and subtle asymmetric nodularity in the right breast tissue. Correlation with clinical breast exam and mammography recommended. CT ABDOMEN/PELVIS: Borderline hepatomegaly. Subcentimeter well-circumscribed low-attenuation lesion in the right kidney, likely simple renal cyst. Status post hysterectomy. Likely prior appendectomy. Additional findings as above. The CT scanner at [facility], [place] is accredited by the [employer] and the scans are performed using protocols designed to limit radiation exposure to as low as reasonably achievable to attain images of sufficient resolution adequate for diagnostic evaluation.
[2017-06-12 20:00] VITALS: BP 116/74
--- NOTE | 2017-06-12 21:06 | General Progress Note ---
Assessment/Plan Problem List: (1) HTN (hypertension) ICD Codes: I10 - HTN (hypertension) SNOMED: 73311204 (2) Obesity ICD Codes: E66.9 - Obesity SNOMED: 862957414 (3) Bipolar 1 disorder ICD Codes: F31.9 - Bipolar 1 disorder SNOMED: 251111997 (4) Chronic pancreatitis ICD Codes: K86.1 - Other chronic pancreatitis SNOMED: 030311956 Qualifiers: Qualified Codes: K86.1 - Other chronic pancreatitis (5) Diabetes ICD Codes: E11.9 - Diabetes SNOMED: 92970135 Qualifiers: Qualified Codes: E11.8 - Type 2 diabetes mellitus with unspecified complications (6) Abdominal pain ICD Codes: R10.9 - Abdominal pain SNOMED: 23848860 Qualifiers: Qualified Codes: R10.13 - Epigastric pain Status: progressing Assessment/Plan afebrile vitals stable abdominal pain improving pancreatitis dm reviewed chart and labs Subjective ROS Limited/Unobtainable: Yes Allergies: Coded Allergies: No Known Allergies (Unverified , 09/22/14) Objective Last 24 Hour Vital Signs Date Time Temp Pulse Resp B/P (MAP) Pulse Ox O2 Delivery O2 Flow Rate FiO2 06/12/17 20:00 98.1 79 18 116/74 97 06/12/17 19:50 98.1 06/12/17 15:51 98.1 68 16 116/73 95 06/12/17 12:15 98.1 86 20 119/63 97 06/12/17 12:01 97.9 06/12/17 08:00 97.9 85 20 114/72 96 06/12/17 04:00 97.9 67 20 120/76 100 Intake and Output 06/11/17 06/12/17 19:00 07:00 Intake Total 1320 ml Balance 1320 ml Intake Oral 1320 ml # Voids 3 4 Laboratory Tests 06/12/17 05:00: Sodium Level 139, Potassium Level 4.4, Chloride Level 103, Carbon Dioxide Level 30, Anion Gap 6, Blood Urea Nitrogen 14, Creatinine 0.8, Estimat Glomerular Filtration Rate > 60, Glucose Level 136H, Calcium Level 9.2 06/12/17 05:03: White Blood Count 6.4, Red Blood Count 4.45, Hemoglobin 12.4, Hematocrit 38.0, Mean Corpuscular Volume 85, Mean Corpuscular Hemoglobin 27.8, Mean Corpuscular Hemoglobin Concent 32.6, Red Cell Distribution Width 13.5, Platelet Count 232, Mean Platelet Volume 8.7, Neutrophils (%) (Auto) 56.7, Lymphocytes (%) (Auto) 30.8, Monocytes (%) (Auto) 7.3, Eosinophils (%) (Auto) 3.6H, Basophils (%) (Auto ) 1.6 Height (Feet): 5 Height (Inches): 8.00 Weight (Pounds): 208 Abdomen: tender Emil Centeno MD Jun 12, 2017 21:06
--- NOTE | 2017-06-12 23:41 | General Progress Note ---
Assessment/Plan Assessment/Plan #. Abdominal pain, radiating to back. --> On Dilaudid and pain control #. Recent Weight loss. --> Pending CT scans. #. Failure to thrive. --> Monitor closely. #. Hx of seizure disorder. #. Hx of pancreatitis. Subjective Date patient seen: Jun 11, 2017 Constitutional: Denies: no symptoms, chills, diaphoresis, fever, malaise, weakness, other HEENT: Denies: no symptoms, eye pain, blurred vision, tearing, double vision, ear pain, ear discharge, nose pain, nose congestion, throat pain, throat swelling, mouth pain, mouth swelling, other Cardiovascular: Denies: no symptoms, chest pain, edema, irregular heart rate, lightheadedness, palpitations, syncope, other Respiratory: Denies: no symptoms, cough, orthopnea, shortness of breath, SOB with excertion, SOB at rest, sputum, stridor, wheezing, other Gastrointestinal/Abdominal: Denies: no symptoms, abdomen distended, abdominal pain, black stools, tarry stools, blood in stool, constipated, diarrhea, difficulty swallowing, nausea, poor appetite, poor fluid intake, rectal bleeding , vomiting, other Genitourinary: Denies: no symptoms, burning, discharge, frequency, flank pain, hematuria, incontinence, pain, urgency, other Allergies: Coded Allergies: No Known Allergies (Unverified , 09/22/14) Subjective Resting in bed. On pain management. Weakness. Objective Last 24 Hour Vital Signs Date Time Temp Pulse Resp B/P (MAP) Pulse Ox O2 Delivery O2 Flow Rate FiO2 06/12/17 20:00 98.1 79 18 116/74 97 06/12/17 19:50 98.1 06/12/17 15:51 98.1 68 16 116/73 95 06/12/17 12:15 98.1 86 20 119/63 97 06/12/17 12:01 97.9 06/12/17 08:00 97.9 85 20 114/72 96 06/12/17 04:00 97.9 67 20 120/76 100 Intake and Output 06/11/17 06/12/17 19:00 07:00 Intake Total 1320 ml Balance 1320 ml Intake Oral 1320 ml # Voids 3 4 Laboratory Tests 06/12/17 05:00: Sodium Level 139, Potassium Level 4.4, Chloride Level 103, Carbon Dioxide Level 30, Anion Gap 6, Blood Urea Nitrogen 14, Creatinine 0.8, Estimat Glomerular Filtration Rate > 60, Glucose Level 136H, Calcium Level 9.2 06/12/17 05:03: White Blood Count 6.4, Red Blood Count 4.45, Hemoglobin 12.4, Hematocrit 38.0, Mean Corpuscular Volume 85, Mean Corpuscular Hemoglobin 27.8, Mean Corpuscular Hemoglobin Concent 32.6, Red Cell Distribution Width 13.5, Platelet Count 232, Mean Platelet Volume 8.7, Neutrophils (%) (Auto) 56.7, Lymphocytes (%) (Auto) 30.8, Monocytes (%) (Auto) 7.3, Eosinophils (%) (Auto) 3.6H, Basophils (%) (Auto ) 1.6 Height (Feet): 5 Height (Inches): 8.00 Weight (Pounds): 208 General Appearance: confused Neck: supple Cardiovascular: normal rate, regular rhythm Respiratory/Chest: decreased breath sounds Otto Teague Jun 12, 2017 23:41
--- NOTE | 2017-06-12 23:43 | General Progress Note ---
Assessment/Plan Status: not improved Assessment/Plan #. Abdominal pain, radiating to back. --> On Dilaudid and pain control #. Recent Weight loss. --> S/P CT scans shows revealing borderline hepatomegaly and simple renal cyst --> s/p multiple tumor markers which are negative --> no evifdence of multiple myeloma thoughspep and upep ordered --> f/u in office in 2 weeks to followup on results #. Failure to thrive. --> Monitor closely. #. Hx of seizure disorder. #. Hx of pancreatitis. Subjective Date patient seen: Jun 12, 2017 Constitutional: Denies: no symptoms, chills, diaphoresis, fever, malaise, weakness, other HEENT: Denies: no symptoms, eye pain, blurred vision, tearing, double vision, ear pain, ear discharge, nose pain, nose congestion, throat pain, throat swelling, mouth pain, mouth swelling, other Cardiovascular: Denies: no symptoms, chest pain, edema, irregular heart rate, lightheadedness, palpitations, syncope, other Respiratory: Denies: no symptoms, cough, orthopnea, shortness of breath, SOB with excertion, SOB at rest, sputum, stridor, wheezing, other Gastrointestinal/Abdominal: Denies: no symptoms, abdomen distended, abdominal pain, black stools, tarry stools, blood in stool, constipated, diarrhea, difficulty swallowing, nausea, poor appetite, poor fluid intake, rectal bleeding , vomiting, other Genitourinary: Denies: no symptoms, burning, discharge, frequency, flank pain, hematuria, incontinence, pain, urgency, other Allergies: Coded Allergies: No Known Allergies (Unverified , 09/22/14) Subjective S/P CAT scans. On pain control for abd pain. No fever. Objective Last 24 Hour Vital Signs Date Time Temp Pulse Resp B/P (MAP) Pulse Ox O2 Delivery O2 Flow Rate FiO2 06/12/17 20:00 98.1 79 18 116/74 97 06/12/17 19:50 98.1 06/12/17 15:51 98.1 68 16 116/73 95 06/12/17 12:15 98.1 86 20 119/63 97 06/12/17 12:01 97.9 06/12/17 08:00 97.9 85 20 114/72 96 06/12/17 04:00 97.9 67 20 120/76 100 Intake and Output 06/11/17 06/12/17 19:00 07:00 Intake Total 1320 ml Balance 1320 ml Intake Oral 1320 ml # Voids 3 4 Laboratory Tests 06/12/17 05:00: Sodium Level 139, Potassium Level 4.4, Chloride Level 103, Carbon Dioxide Level 30, Anion Gap 6, Blood Urea Nitrogen 14, Creatinine 0.8, Estimat Glomerular Filtration Rate > 60, Glucose Level 136H, Calcium Level 9.2 06/12/17 05:03: White Blood Count 6.4, Red Blood Count 4.45, Hemoglobin 12.4, Hematocrit 38.0, Mean Corpuscular Volume 85, Mean Corpuscular Hemoglobin 27.8, Mean Corpuscular Hemoglobin Concent 32.6, Red Cell Distribution Width 13.5, Platelet Count 232, Mean Platelet Volume 8.7, Neutrophils (%) (Auto) 56.7, Lymphocytes (%) (Auto) 30.8, Monocytes (%) (Auto) 7.3, Eosinophils (%) (Auto) 3.6H, Basophils (%) (Auto ) 1.6 Height (Feet): 5 Height (Inches): 8.00 Weight (Pounds): 208 Otto Teague Jun 12, 2017 23:43
[2017-06-13] MEDS: HYDROmorphone 1mg/ml Carpuject IVP PRN ×3 (04:06→12:15)
[2017-06-13 04:25] VITALS: BP 116/68
[2017-06-13] MEDS: DiphenhydrAMINE 50mg/ml Inj IVP PRN ×2 (04:55→11:14)
[2017-06-13 08:00] VITALS: BP 121/68
[2017-06-13 09:01] LABS: BASOPHILS % (AUTO) 1.5 % (0.0-2.0); EOSINOPHILS % (AUTO) 3.2 % (0.0-3.0); HEMATOCRIT 39.4 % (37.0-47.0); HEMOGLOBIN 12.8 G/DL (12.0-16.0); LYMPHOCYTES % (AUTO) 35.6 % (20.0-45.0); MEAN CORPUSCULAR VOLUME 86 FL (80-99); MONOCYTES % (AUTO) 6.8 % (1.0-10.0); NEUTROPHILS % (AUTO) 52.9 % (45.0-75.0); PLATELET COUNT 239 K/UL (150-450); RED BLOOD COUNT 4.58 M/UL (4.20-5.40); RED CELL DISTRIBUTION WIDTH 13.3 % (11.6-14.8); WHITE BLOOD COUNT 5.4 K/UL (4.8-10.8)
[2017-06-13] MEDS: Naloxegol Oxalate 25mg tab ORAL SCH (09:05)
[2017-06-13] MEDS: Pantoprazole Inj IVP SCH (09:05)
[2017-06-13] MEDS: metFORMIN 500mg tab ORAL SCH (09:05)
--- NOTE | 2017-06-13 09:26 | General Progress Note ---
Assessment/Plan Assessment/Plan (1) Intractable abdominal pain (2) Pancreatitis we will continued the Dilaudid, Rogers and Neurontin. An Rx for Rogers 7.5/325mg PO 1 tab Q4-6H PRN 20tabs and Neurontin 300mg PO 1 cap Q8H 45 Caps was written for patient in anticipation for discharge. D/w Dr. De Jesus and he concurred. Subjective Date patient seen: Jun 13, 2017 Time patient seen: 06:45 - am Allergies: Coded Allergies: No Known Allergies (Unverified , 09/22/14) Subjective Constitutional: Reports: no symptoms HEENT: Reports: no symptoms Cardiovascular: Reports: no symptoms Respiratory: Reports: no symptoms Gastrointestinal/Abdominal: Reports: abdominal pain Genitourinary: Reports: no symptoms Neurologic/Psychiatric: Reports: no symptoms Endocrine: Reports: no symptoms Hematologic/Lymphatic: Reports: no symptoms Patient reports that she has been having some increase of pain this morning. The pain has been tolerated on the Dilaudid and Rogers waiting for the CT scan results to be reviewed with dividend clerk. Objective Last 24 Hour Vital Signs Date Time Temp Pulse Resp B/P (MAP) Pulse Ox O2 Delivery O2 Flow Rate FiO2 06/13/17 09:04 72 121/68 06/13/17 08:00 97.9 72 20 121/68 98 Room Air 06/13/17 04:36 98.1 06/13/17 04:25 98.1 87 19 116/68 97 06/12/17 20:00 98.1 79 18 116/74 97 06/12/17 19:50 98.1 06/12/17 15:51 98.1 68 16 116/73 95 06/12/17 12:15 98.1 86 20 119/63 97 Intake and Output 06/12/17 06/13/17 19:00 07:00 Intake Total 500 ml Balance 500 ml Intake Oral 500 ml # Voids 3 3 Laboratory Tests 06/13/17 07:20: White Blood Count 5.4, Red Blood Count 4.58, Hemoglobin 12.8, Hematocrit 39.4, Mean Corpuscular Volume 86, Mean Corpuscular Hemoglobin 27.9, Mean Corpuscular Hemoglobin Concent 32.5, Red Cell Distribution Width 13.3, Platelet Count 239, Mean Platelet Volume 7.8, Neutrophils (%) (Auto) 52.9, Lymphocytes (%) (Auto) 35.6, Monocytes (%) (Auto) 6.8, Eosinophils (%) (Auto) 3.2H, Basophils (%) (Auto ) 1.5, Sodium Level [Pending], Potassium Level [Pending], Chloride Level [ Pending], Carbon Dioxide Level [Pending], Blood Urea Nitrogen [Pending], Creatinine [Pending], Estimat Glomerular Filtration Rate [Pending], Glucose Level [Pending], Calcium Level [Pending] Height (Feet): 5 Height (Inches): 8.00 Weight (Pounds): 208 Objective General Appearance: no apparent distress, alert EENT: PERRL/EOMI, normal ENT inspection Neck: non-tender, normal alignment Cardiovascular: normal rate, regular rhythm Respiratory/Chest: decreased breath sounds Abdomen: tender Extremities: non-tender Edema: no edema noted Arm (L), no edema noted Arm (R), no edema noted Leg (L), no edema noted Leg (R), no edema noted Pedal (L), no edema noted Pedal (R), no edema noted Generalized Neurologic: alert, oriented x 3 Skin: warm/dry TRINA PERES Jun 13, 2017 09:26
[2017-06-13 09:34] LABS: ANION GAP 9 mmol/L (5-15); BLOOD UREA NITROGEN 13 mg/dL (7-18); CALCIUM 9.2 MG/DL (8.5-10.1); CARBON DIOXIDE 29 MMOL/L (21-32); CHLORIDE 100 MMOL/L (98-107); CREATININE 0.9 MG/DL (0.55-1.30); POTASSIUM 4.2 MMOL/L (3.5-5.1); SODIUM 138 MMOL/L (136-145)
[2017-06-13 11:19] VITALS: BP 114/77
[2017-06-13] MEDS ORDERED: NORCO 7.5-3251 EACH ORAL (11:50)
[2017-06-13] MEDS ORDERED: NEURONTIN100 MG ORAL (11:50)
--- NOTE | 2017-06-13 12:27 | GI Progress Note ---
Assessment/Plan Problems: (1) Abdominal pain ICD Codes: R10.9 - Abdominal pain SNOMED: 92309147 Qualifiers: Qualified Codes: R10.13 - Epigastric pain (2) Diabetes ICD Codes: E11.9 - Diabetes SNOMED: 82676684 Qualifiers: Qualified Codes: E11.8 - Type 2 diabetes mellitus with unspecified complications (3) Obesity ICD Codes: E66.9 - Obesity SNOMED: 243542896 (4) Diarrhea ICD Codes: R19.7 - Diarrhea SNOMED: 41327726 Status: stable Status Narrative Discussed with Dr. Mcintosh. Assessment/Plan ?chronic pancreatitis EUS in 2015 >> fatty liver CBC, CMP, lipase reviewed >> unremarkable upper abdominal pain with radiation abdominal U/S >> negative CT AP reviewed >> right breast skin thickening, otherwise unremarkable, see full report. stool cx negative cdiff negative okay for DC per GI standpoint symptomatic treatment adv to regular ADA diet fu stool fat pain mgmt DM mgmt ppi fu labs, tumor markers Subjective Subjective abdominal pain still present had BM, denies diarrhea Objective Last 24 Hour Vital Signs Date Time Temp Pulse Resp B/P (MAP) Pulse Ox O2 Delivery O2 Flow Rate FiO2 06/13/17 11:19 97.5 71 18 114/77 100 Room Air 06/13/17 09:04 72 121/68 06/13/17 08:00 97.9 72 20 121/68 98 Room Air 06/13/17 04:36 98.1 06/13/17 04:25 98.1 87 19 116/68 97 06/12/17 20:00 98.1 79 18 116/74 97 06/12/17 19:50 98.1 06/12/17 15:51 98.1 68 16 116/73 95 Intake and Output 06/12/17 06/13/17 19:00 07:00 Intake Total 500 ml Balance 500 ml Intake Oral 500 ml # Voids 3 3 Laboratory Tests Test 06/13/17 07:20 06/13/17 07:30 White Blood Count 5.4 K/UL (4.8-10.8) Red Blood Count 4.58 M/UL (4.20-5.40) Hemoglobin 12.8 G/DL (12.0-16.0) Hematocrit 39.4 % (37.0-47.0) Mean Corpuscular Volume 86 FL (80-99) Mean Corpuscular Hemoglobin 27.9 PG (27.0-31.0) Mean Corpuscular Hemoglobin Concent 32.5 G/DL (32.0-36.0) Red Cell Distribution Width 13.3 % (11.6-14.8) Platelet Count 239 K/UL (150-450) Mean Platelet Volume 7.8 FL (6.5-10.1) Neutrophils (%) (Auto) 52.9 % (45.0-75.0) Lymphocytes (%) (Auto) 35.6 % (20.0-45.0) Monocytes (%) (Auto) 6.8 % (1.0-10.0) Eosinophils (%) (Auto) 3.2 % (0.0-3.0) H Basophils (%) (Auto) 1.5 % (0.0-2.0) Sodium Level 138 MMOL/L (136-145) Potassium Level 4.2 MMOL/L (3.5-5.1) Chloride Level 100 MMOL/L (98-107) Carbon Dioxide Level 29 MMOL/L (21-32) Anion Gap 9 mmol/L (5-15) Blood Urea Nitrogen 13 mg/dL (7-18) Creatinine 0.9 MG/DL (0.55-1.30) Estimat Glomerular Filtration Rate > 60 mL/min (>60) Glucose Level 148 MG/DL (74-106) H Calcium Level 9.2 MG/DL (8.5-10.1) Total Protein (PEP) Pending Albumin (PEP) Pending Globulin (PEP) Pending Albumin/Globulin Ratio Pending Lilep-6-Nwnnidvib Pending Hlnac-8-Pdpjzowej Pending Beta Globulins Pending Beta Gamma Globulin Pending PEP Abnormal Protein Bands Pending Protein Electrophoresis Interpret Pending Height (Feet): 5 Height (Inches): 8.00 Weight (Pounds): 208 General Appearance: WD/WN, no apparent distress, alert, morbidly obese Cardiovascular: normal rate Respiratory/Chest: normal breath sounds, no respiratory distress Abdominal Exam: normal bowel sounds, non tender, soft Extremities: normal range of motion, non-tender Shannon Baldwin N.P. Jun 13, 2017 12:27
--- NOTE | 2017-06-13 12:54 | Consultation ---
DATE OF CONSULTATION: 06/10/2017 ADDENDUM ASSESSMENT AND RECOMMENDATION: 1. Weight loss. Recommend to send for tumor markers. The patient has had a recent imaging, is status post esophagogastroduodenoscopy and colonoscopy by GI service. Obtain . Follow up on tumor markers. 2. Pancreatitis which is recurrent with abdominal pain, evaluated by gastrointestinal service. Continue opiates. Pain management with Dilaudid. 3. Hypertension, systolic blood pressure controlled with goal less than 140. 4. Diabetes mellitus. Obtain A1c. 5. Recent weight loss. Again obtain tumor markers to further evaluate and also ultrasound of the abdomen. I appreciate the consultation. Otto Teague M.D. DR: Flo JOB#: [id number] CC:
--- NOTE | 2017-06-13 12:55 | Consultation ---
DATE OF CONSULTATION: 06/11/2017 PAIN MANAGEMENT CONSULTATION CONSULTING PHYSICIAN: Ajith De Jesus M.D. REFERRING PHYSICIAN: Emil Centeno M.D. PHYSICIAN CLOTHING PATTERN PREPARER: YOLETTE Clark CHIEF COMPLAINT: Abdominal pain. HISTORY OF PRESENT ILLNESS: This is a 56-year-old female, who is being seen on the Med/Surg floor of [facility] for initial comprehensive pain management consultation. The patient reports that she has been having abdominal pain for the past three years that is constant pain and rating at 8/10. She is describing the pain as a sharp pinching pain, which is dull at times, increased with eating, and reduced with medications. The patient reports that she had been discharged from [facility] with the diagnosis of pancreatitis and has continued pain. She was admitted under the care of Dr. Centeno, who started the patient on Dilaudid 1 mg IV every 4 hours as needed for severe pain and the patient is comfortable at this time, being seen by laborer brush clearing. We were consulted so that the patient would have adequate pain control while here in the hospital. PAST MEDICAL HISTORY: Hypertension, diabetes mellitus, depression, and insomnia. PAST SURGICAL HISTORY: Tonsillectomy, umbilical hernia repair, hysterectomy, and left shoulder surgery. MEDICATIONS: Amlodipine, Soma, Voltaren, Depakote, losartan, metformin, omeprazole, oxybutynin, Paxil, Seroquel, Prandin, Januvia, and Mendon. ALLERGIES: No known drug allergies. SOCIAL HISTORY: Denies smoking tobacco, drinking alcohol, or IV drug abuse. REVIEW OF SYSTEMS: Denies rash, fever, chills, sweating, dizziness, drowsiness, blurred vision, sore throat, or change in her weight. No shortness of breath, chest pain, palpitations, or cough. No nausea, vomiting, diarrhea, or blood in the stool or urine. No bowel or bladder incontinence. No dysuria. She is complaining of abdominal pain. PHYSICAL EXAMINATION: GENERAL: Alert, awake, and oriented x3. VITAL SIGNS: Blood pressure 132/84, heart rate 84, oxygen saturation is 95%, respiratory rate is 20, and temperature is 98.2 degrees Fahrenheit. HEENT: PERRLA. NECK: Range of motion is full in all directions. No tenderness of paracervical muscles. No adenopathy. LUNGS: Clear. HEART: Regular. ABDOMEN: Tenderness to palpation. BACK: Range of motion is full in flexion and extension. No tenderness to paraspinal muscles, trapezius, or rhomboid muscles. EXTREMITIES: Upper extremity and lower extremity range of motion is full in all directions. Motor is intact. No cyanosis. No clubbing. No edema. Sensory is intact. Reflexes are not obtainable. No adenopathy. ASSESSMENT AND PLAN: This is a 56-year-old female with intractable abdominal pain with a history of a pancreatitis. The patient will be continued on Dilaudid 1 mg IV every 4 hours as needed for severe pain and started on Mendon 10/325 one tablet every 4 hours as needed for moderate pain and a Neurontin 300 mg tablet three times a day. The patient will be followed by laborer brush clearing at this time. The patient was discussed with Dr. De Jesus and Dr. De Jesus concurred. We will follow the patient. Thank you very much for the courtesy of this consultation. Ajith De Jesus M.D. YOLETTE Clark DR: BREANA JOB#: [id number] CC:
--- NOTE | 2017-06-15 02:22 | General Progress Note ---
Assessment/Plan Assessment/Plan #. Abdominal pain, radiating to back. --> On Dilaudid and pain control --> Monitor closely. --> controlled. #. Recent Weight loss. --> --> S/P CT scans shows revealing borderline hepatomegaly and simple renal cyst --> s/p multiple tumor markers which are negative --> no evidence of multiple myeloma though spep and upep ordered --> f/u in office in 2 weeks to followup on results #. Failure to thrive. --> Monitor closely. #. Hx of seizure disorder. #. Hx of pancreatitis. Subjective Date patient seen: Jun 13, 2017 Allergies: Coded Allergies: No Known Allergies (Unverified , 09/22/14) Subjective Abd pain feeling better. No fever. Objective VS - Last 72 Hours, by Label Date Time Temp Pulse Resp B/P (MAP) Pulse Ox O2 Delivery O2 Flow Rate FiO2 06/13/17 11:19 97.5 71 18 114/77 100 Room Air 06/13/17 09:04 72 121/68 06/13/17 08:00 97.9 72 20 121/68 98 Room Air 06/13/17 04:36 98.1 06/13/17 04:25 98.1 87 19 116/68 97 06/12/17 20:00 98.1 79 18 116/74 97 06/12/17 19:50 98.1 06/12/17 15:51 98.1 68 16 116/73 95 06/12/17 12:15 98.1 86 20 119/63 97 06/12/17 08:00 97.9 85 20 114/72 96 06/12/17 04:00 97.9 67 20 120/76 100 Labs Test 06/12/17 05:00 06/12/17 05:03 06/13/17 07:20 06/13/17 07:30 Sodium Level 139 MMOL/L (136-145) 138 MMOL/L (136-145) Potassium Level 4.4 MMOL/L (3.5-5.1) 4.2 MMOL/L (3.5-5.1) Chloride Level 103 MMOL/L (98-107) 100 MMOL/L (98-107) Carbon Dioxide Level 30 MMOL/L (21-32) 29 MMOL/L (21-32) Anion Gap 6 mmol/L (5-15) 9 mmol/L (5-15) Blood Urea Nitrogen 14 mg/dL (7-18) 13 mg/dL (7-18) Creatinine 0.8 MG/DL (0.55-1.30) 0.9 MG/DL (0.55-1.30) Estimat Glomerular Filtration Rate > 60 mL/min (>60) > 60 mL/min (>60) Glucose Level 136 MG/DL (74-106) 148 MG/DL (74-106) Calcium Level 9.2 MG/DL (8.5-10.1) 9.2 MG/DL (8.5-10.1) White Blood Count 6.4 K/UL (4.8-10.8) 5.4 K/UL (4.8-10.8) Red Blood Count 4.45 M/UL (4.20-5.40) 4.58 M/UL (4.20-5.40) Hemoglobin 12.4 G/DL (12.0-16.0) 12.8 G/DL (12.0-16.0) Hematocrit 38.0 % (37.0-47.0) 39.4 % (37.0-47.0) Mean Corpuscular Volume 85 FL (80-99) 86 FL (80-99) Mean Corpuscular Hemoglobin 27.8 PG (27.0-31.0) 27.9 PG (27.0-31.0) Mean Corpuscular Hemoglobin Concent 32.6 G/DL (32.0-36.0) 32.5 G/DL (32.0-36.0) Red Cell Distribution Width 13.5 % (11.6-14.8) 13.3 % (11.6-14.8) Platelet Count 232 K/UL (150-450) 239 K/UL (150-450) Mean Platelet Volume 8.7 FL (6.5-10.1) 7.8 FL (6.5-10.1) Neutrophils (%) (Auto) 56.7 % (45.0-75.0) 52.9 % (45.0-75.0) Lymphocytes (%) (Auto) 30.8 % (20.0-45.0) 35.6 % (20.0-45.0) Monocytes (%) (Auto) 7.3 % (1.0-10.0) 6.8 % (1.0-10.0) Eosinophils (%) (Auto) 3.6 % (0.0-3.0) 3.2 % (0.0-3.0) Basophils (%) (Auto) 1.6 % (0.0-2.0) 1.5 % (0.0-2.0) Height (Feet): 5 Height (Inches): 8.00 Weight (Pounds): 208 General Appearance: agitated Cardiovascular: normal rate Respiratory/Chest: decreased breath sounds Otto Teague Jun 15, 2017 02:22
--- NOTE | 2017-06-17 04:00 | Discharge Summary 2 SIG ---
DATE OF ADMISSION: 06/10/2017 DATE OF DISCHARGE: 06/13/2017 REASON FOR ADMISSION: 56-year-old female with a past medical history of diabetes, bipolar disorder type 1, and depression. presented to emergency department for abdominal pain. She recently was seen in [facility] and diagnosed with pancreatitis. The patient reported abdominal pain. She was not vomiting, but had difficulties keeping her food down. Abdominal pain was worse with eating. She described it as 8/10, constant, aching, and pressure-like with radiation to the back. She denied hematemesis, melena, or hematochezia. Blood sugar controlled as per patient. The patient denied fever and chills. The patient reported feeling weak and stated that she lost some weight. Denied dysuria, blood in urine, difficulties with urination. The patient was seen by Dr. Mcintosh at [facility]. EGD and colonoscopy were done in June 2014. Abdominal ultrasound at that time revealed prominent pancreatic duct and repeated ultrasound showed fatty liver. CT was unremarkable. Workup in the emergency room revealed negative for UTI urinalysis. No leukocytosis. Stable hemoglobin and hematocrit. Electrolytes were stable as well as the renal parameters. Lipase - 114. EKG showed normal sinus rhythm. No acute ischemic changes. The patient was admitted with abdominal pain, chronic pancreatitis, and diabetes mellitus. HOSPITAL COURSE: The patient was admitted. The patient was initially kept NPO and started on the IV fluids. GI consult was requested. The patient subsequently undergone abdominal ultrasound, which was negative. The patient subsequently undergone CT of the abdomen and pelvis, which showed borderline hepatomegaly and renal cyst. No other significant findings. Stool culture was negative. Stool for C. difficile was negative. The patient was gradually started on diet and advanced as tolerated. Antiemetic provided as needed. Script Girl closely followed the patient. Cancer tumor markers, including alpha fetoprotein, CA-15-3, and CA-125 were all negative. Pain specialist followed. Pain management was addressed and provided as per pain specialist recommendation. Blood pressure was managed with calcium channel ollie and ARB. Depakote was continued. Blood sugar was managed with Januvia and sliding scale of insulin. Patient was started on PPI. Symptomatic treatment provided. GI cleared the patient for discharge. The patient was able to tolerate diet. Vital signs stable. pain resolved. Per jewellery designer/oncologist, no evidence of multiple myeloma. Status post multiple tumor markers, all of which were negative. Status post CT scan which showed borderline hepatomegaly and otherwise negative. The patient was stable for discharge home and follow up with the primary medical doctor as outpatient for further workup and close monitoring. FINAL DIAGNOSES: 1. Abdominal pain. 2. Chronic pancreatitis. 3. Diabetes mellitus. 4. Bipolar type 1 disorder. 5. Obesity. 6. Recent weight loss. 7. Diarrhea, resolved. DISCHARGE MEDICATIONS: See medication reconciliation list. DISCHARGE INSTRUCTIONS: The patient was discharged home with home health services. Follow up with the primary medical doctor for close monitoring and further management. Emil Centeno M.D. I have been assigned to dictate discharge summary on this account and I was not involved in the patient's management. Vanna Davalos ([facility]) N.PShagufta DR: FERDINAND JOB#: [id number] CC: OCTAVIANO
== END 2017-06-13 14:52 | disposition home health service (06) | DRG 440 ==
LOC: EMR 07:52 → 4W 07:55 → EDBEDREQ 08:25
DX: K86.1 Other chronic pancreatitis (principal); K76.0 Fatty (change of) liver, not elsewhere classified; R62.7 Adult failure to thrive; E11.9 Type 2 diabetes mellitus without complications; F31.9 Bipolar disorder, unspecified; E66.9 Obesity, unspecified; R63.4 Abnormal weight loss; R19.7 Diarrhea, unspecified; G40.909 Epilepsy, unspecified, not intractable, without status epilepticus
CPT/HCPCS: 36415; 71260; 74177; 76700; 80048; 80053; 81003; 82105; 82270; 82378; 82705; 82962; 83690; 84165; 84484; 85025; 85610; 85730; 86300; 86304; 87045; 87324; 93005; 99285; J2405

== ENCOUNTER 2017-10-16 13:15 | Outpatient (CLI) | payer MEDICARE, OTHER ==
[~2017-10-16 13:15] MED LIST changes: +NEURONTIN100 MG ORAL; +NORCO 7.5-3251 EACH ORAL; +XYZAL5 MG ORAL
--- NOTE | 2017-10-17 09:42 | GI Initial Consult Note ---
History of Present Illness General Date patient seen: Oct 16, 2017 Time patient seen: 15:00 Referring physician: AME Reason for Consultation: ABDOMINAL PAIN Present Illness HPI The patient presents with abdominal pain. She was seen at [facility] and diagnosed with pancreatitis earlier this year. The pain has not been controlled well. She's not been vomiting today but has trouble keeping down food. When she does eat the pain intensifies. Snout 8/10, constant, aching and pressure radiates to her back. She tried taking some hydrocodone at home. Denies hematemesis, melena, hematochezia. She's had night sweats. Also she felt itching on her abdomen. Medicine was recently prescribed for this. The patient also has diabetes any new medicine was prescribed orally for her. Denies fevers or chills. She feels weak and she's lost weight. Endoscopy has been performed. There's a dilated common bile duct without any obstruction. She states the tumor markers have been elevated. They've been unable to find if there is a source for the tumor markers. No dysuria. In addition, the patient had a MRCP performed at [facility] which was negative for gallstones or biliary ductal dilation. Had some pancreatic ductal dilation. Presents today with OB stool positive, nausea, constipation vs diarrhea, weight loss. Last colonoscopy was performed in 2017 per patient. This is an outpatient note from 2014: Referred by Dr. Guzman. Seen by Dr. Mcintosh at [facility]. S/P EGD and colonoscopy in June 2014. Continues to report abdominal pain, epigastric radiating through the back, weight loss, and diarrhea. Loss of about 17 lbs. Reports that pain ongoing for about x 1 year, but getting worse x few months, with diarrhea x 2 weeks. Stool tests are still pending. MRCP was read as normal. Ultrasound on 03/03/14 shows prominent pancreatic duct and repeat ultrasound on 06/23/[address] was noted as unremarkable. EUS in 2014 SUMMARY OF FINDINGS: A large fatty liver, otherwise normal endoscopic ultrasound without any pancreatic duct dilatation or any other pancreatic lesion. Home Meds Reported Medications Hydrocodone Bit/Acetaminophen 7.5-325* (NORCO 7.5-325*) 1 Each Tablet, 1 TAB ORAL Q4H PRN for For Pain, #30 TAB 0 Refills 2/2/18 Gabapentin* (NEURONTIN*) 100 Mg Capsule, 300 MG ORAL Q8HR, #15 CAP 0 Refills 06/13/17 Levocetirizine Dihydrochloride (XYZAL) 5 Mg Tablet, 5 MG ORAL for 30 Days, MG 0 Refills 06/10/17 Losartan Potassium* (LOSARTAN POTASSIUM*) 50 Mg Tablet, 100 MG ORAL DAILY, TAB 09/22/14 Amlodipine Besylate* (AMLODIPINE BESYLATE*) 5 Mg Tablet, 10 MG ORAL DAILY, TAB 09/22/14 Oxybutynin Chloride (Oxybutynin Chloride) 10 Mg Tab, 5 MG ORAL QHS, TAB 09/22/14 Carisoprodol* (SOMA*) 350 Mg Tablet, 350 MG PO BID, TAB 09/22/14 OXYCODONE HCl* (ROXICODONE*) 15 Mg Tablet, 15 MG ORAL Q6H PRN for For Pain, TAB 09/22/14 Omeprazole (OMEPRAZOLE) 40 Mg Capsule.dr, 40 MG ORAL DAILY, CAP 09/22/14 Repaglinide (Prandin) 1 Mg Tab, 1 MG ORAL THREE TIMES A DAY, TAB 09/22/14 Diclofenac Sod* (VOLTAREN*) 75 Mg Tablet.dr, 75 MG ORAL BID, TAB 09/22/14 Sitagliptin (Januvia) 100 Mg Tab, 100 MG ORAL DAILY, TAB 09/22/14 Metformin Hcl* (METFORMIN HCL*) 1,000 Mg Tablet, 1000 MG ORAL BID, TAB 09/22/14 Paroxetine Hcl* (PAXIL*) 20 Mg Tablet, 20 MG ORAL DAILY, TAB 0 Refills 09/22/14 Divalproex Sodium (Depakote) 500 Mg Tabec, 500 MG PO TID, TAB 09/22/14 Quetiapine Fumarate* (SEROQUEL*) 100 Mg Tablet, 50 MG ORAL QHS, TAB 09/22/14 Med list reviewed/reconciled: Yes Allergies: Coded Allergies: No Known Allergies (Unverified , 09/22/14) Patient History History Provided By: Patient, Medical Record PMH Narrative History Provided By: Patient, Medical Record PMH Narrative PMH: GERD, Depression, HTN, kidney stones, bipolar. PSHX: Appendectomy, umbilical hernia repair, tonsillectomy, left rotator cuff repair. ROS: abdominal pain, weight loss, diarrhea. Denies chest pain, SOB, muscle weakness , melena, hematochezia, dysuria, neurological symptoms. FHx: Leukemia-brother , breast cancer-grandmother, renal cancer-mother. Soc. Hx. No smoking, No ETOH use, no illicit drugs. Past Medical History: see triage record Social History: Denies: smoking, alcohol use Reviewed Nursing Documentation: PMH: Agreed, PSxH: Agreed Nursing Documentation-PMH Hx Cardiac Problems: Yes Hx Hypertension: Yes Hx Diabetes: Yes Hx Cancer: No Hx Gastrointestinal Problems: Yes Hx Neurological Problems: No Social History: Denies: smoking, alcohol use, drug use, other Social History: Denies: smoking, alcohol use, drug use, other Review of Systems All Other Systems: negative except mentioned in HPI Physical Exam T 98.6 BP 130/78 P 71 99 RA WT 191 lbs with loss of 5 lbs in the prior month. Sp02 EP Interpretation: reviewed, normal General Appearance: well appearing, no apparent distress, alert Head: normocephalic EENT: PERRL/EOMI, normal ENT inspection Neck: supple Respiratory: normal breath sounds, no respiratory distress Cardiovascular: normal rate Gastrointestinal: normal inspection, non tender, soft, normal bowel sounds, non -distended Rectal: deferred Genitourinary: no CVA tenderness Musculoskeletal: normal inspection, back normal Neurologic: normal inspection, alert, oriented x3, responsive Psychiatric: normal inspection, judgement/insight normal, memory normal Skin: normal inspection, normal color, no rash, warm/dry, palpation normal, well hydrated Lymphatic: normal inspection, no adenopathy GI: Plan Problems: (1) Diarrhea (2) Weight loss (3) Diabetes (4) Abdominal pain (5) Bipolar 1 disorder (6) Diverticulosis Plan Rx Xifaxan Rx Omeprazole VSL #3 trial RTC x [address] Mcintosh. Thank you for this patient referral, we will follow. The patient was seen and examined at bedside and all new and available data was reviewed in the patients chart. I agree with the above findings, impression and plan. (Patient seen earlier today. Signature stamp does not reflect patient encounter time.). - MD Nicolasa MccallLa [facility] J[facility] ESTIMATOR Oct 17, 2017 09:42
== END 2017-10-16 13:45 | disposition home or self-care (01) ==
LOC: PAN 13:15
DX: R10.9 Unspecified abdominal pain (principal); R19.7 Diarrhea, unspecified; R63.4 Abnormal weight loss; E11.9 Type 2 diabetes mellitus without complications; F31.9 Bipolar disorder, unspecified; K57.90 Diverticulosis of intestine, part unspecified, without perforation or abscess without bleeding; F32.9 Major depressive disorder, single episode, unspecified; Z87.442 Personal history of urinary calculi; Z90.89 Acquired absence of other organs; I10 Essential (primary) hypertension
CPT/HCPCS: 99211

== ENCOUNTER 2017-12-12 17:19 | Inpatient (IN) | payer MEDICARE, OTHER ==
[~2017-12-12] VITALS: Ht 167.6 cm; Wt 85.7 kg
[2017-12-12] MEDS ORDERED: Morphine Sulfate 4mg/ml Inj (IV USE ONLY) IVP ONE ×2 (18:00→18:45)
[2017-12-12] MEDS ORDERED: JANUVIA25 MG ORAL (18:18)
[2017-12-12 18:19] VITALS: BP 134/98
[2017-12-12] MEDS ORDERED: COLOSTRUM500 MG PO (18:25)
[2017-12-12] MEDS ORDERED: MULTIVITAMINS1 EAC2 ORAL (18:25)
[2017-12-12] MEDS ORDERED: AMBIEN5 M1 PO (18:25)
[2017-12-12] MEDS ORDERED: MARINOL10 MG ORAL (18:25)
[2017-12-12] MEDS ORDERED: TRAMADOL HCL100 M2 ORAL (18:25)
[2017-12-12] MEDS ORDERED: VITAMIN D400 INTLU ORAL (18:25)
[2017-12-12 18:37] LABS: BASOPHILS % (AUTO) 2.5 % (0.0-2.0); EOSINOPHILS % (AUTO) 3.8 % (0.0-3.0); HEMATOCRIT 41.1 % (37.0-47.0); HEMOGLOBIN 13.8 G/DL (12.0-16.0); LYMPHOCYTES % (AUTO) 37.2 % (20.0-45.0); MEAN CORPUSCULAR VOLUME 83 FL (80-99); MONOCYTES % (AUTO) 5.7 % (1.0-10.0); NEUTROPHILS % (AUTO) 50.8 % (45.0-75.0); PLATELET COUNT 236 K/UL (150-450); RED BLOOD COUNT 4.98 M/UL (4.20-5.40); RED CELL DISTRIBUTION WIDTH 12.8 % (11.6-14.8); WHITE BLOOD COUNT 5.7 K/UL (4.8-10.8)
[2017-12-12 18:38] LABS: APPEARANCE,URINE CLEAR; BILIRUBIN, URINE NEGATIVE (NEGATIVE); COLOR,URINE PALE YELLOW; GLUCOSE, URINE (UA) 4+ (NEGATIVE); KETONES,URINE 1+ (NEGATIVE); LEUKOCYTE ESTERASE ,URINE NEGATIVE (NEGATIVE); NITRITE,URINE NEGATIVE (NEGATIVE); PH,URINE 6 (4.5-8.0); PROTEIN,URINE NEGATIVE (NEGATIVE); UROBILINOGEN,URINE NORMAL MG/DL (0.0-1.0)
[2017-12-12 18:42] LABS: INR 1.1 (0.9-1.1)
[2017-12-12 18:43] LABS: ANION GAP 9 mmol/L (5-15); BLOOD UREA NITROGEN 9 mg/dL (7-18); CALCIUM 9.5 MG/DL (8.5-10.1); CARBON DIOXIDE 27 MMOL/L (21-32); CHLORIDE 104 MMOL/L (98-107); CREATININE 0.8 MG/DL (0.55-1.30); POTASSIUM 3.9 MMOL/L (3.5-5.1); SODIUM 140 MMOL/L (136-145)
[2017-12-12 18:47] LABS: ALANINE AMINOTRANSFERASE 22 U/L (12-78); ALBUMIN 4.3 G/DL (3.4-5.0); ALKALINE PHOSPHATASE 97 U/L (46-116); ASPARTATE AMINO TRANSFERASE 12 U/L (15-37); BILIRUBIN,TOTAL 0.5 MG/DL (0.2-1.0)
[2017-12-12] MEDS: D5 1/2NS w/KCl 20mEq 1,000 ML IV SCH (19:00)
[2017-12-12] MEDS ORDERED: AMLODIPINE BESY10 MG ORAL (19:51)
[2017-12-12] MEDS ORDERED: MARINOL2.5 MG ORAL (20:00)
[2017-12-12] MEDS ORDERED: Isovue-300 100ml vial INJ PRN (20:00)
[2017-12-12] MEDS ORDERED: TRAMADOL HCL50 MG ORAL (20:10)
[2017-12-12] MEDS ORDERED: AMBIEN10 MG ORAL (20:10)
[2017-12-12] MEDS ORDERED: SEROQUEL50 MG ORAL (20:18)
[2017-12-12] MEDS ORDERED: VITAMIN C500 M1 ORAL (20:25)
[2017-12-12] MEDS ORDERED: OIL OF OREGAN1500 MG PO (20:42)
[2017-12-12] MEDS ORDERED: L-TRYPTOPHAN500 MG PO (20:42)
[2017-12-12] MEDS ORDERED: MELATONIN3 MG ORAL (20:48)
[2017-12-12] MEDS ORDERED: MAGNESIUM250 M2 PO (20:48)
[2017-12-12] MEDS ORDERED: CALCIUM500 M2 PO (20:50)
--- NOTE | 2017-12-12 22:36 | Emergency Room Report ---
History of Present Illness General Chief Complaint: Abdominal Pain Source: Patient, Medical Record Present Illness HPI Patient is a 57-year-old female who presented after increased epigastric pain. Patient gradual onset of symptoms. Patient reported having worst epigastric pain associated with some nausea and radiation to her back. Patient had recently had a few abnormal lymph nodes in her periaortic region. This had been worked up by Dr. Holland. Patient was noted to have increased abdominal pain today. She denied any bleeding or hematemesis. Patient also been previously seen by Dr Mcintosh. Allergies: Coded Allergies: No Known Allergies (Unverified , 09/22/14) Patient History Past Medical History: see triage record Last Menstrual Period: 04/2010 Reviewed Nursing Documentation: PMH: Agreed; PSxH: Agreed Nursing Documentation-PMH Past Medical History: No History, Except For Hx Cardiac Problems: Yes - enlarged lymph nodes Hx Hypertension: Yes Hx Pacemaker: No Hx Asthma: No Hx COPD: No Hx Diabetes: Yes Hx Cancer: No Hx Gastrointestinal Problems: Yes Hx Dialysis: No History Of Psychiatric Problem: No Hx Neurological Problems: No Hx Cerebrovascular Accident: No Hx Seizures: No Review of Systems All Other Systems: negative except mentioned in HPI Physical Exam Vital Signs Date Time Temp Pulse Resp B/P (MAP) Pulse Ox O2 Delivery O2 Flow Rate FiO2 12/12/17 17:27 98.1 73 14 136/83 98 Room Air 98.1 Sp02 EP Interpretation: reviewed, normal General Appearance: normal inspection, well appearing, no apparent distress, alert, GCS 15, non-toxic Head: atraumatic ENT: normal ENT inspection, hearing grossly normal, normal voice Neck: normal inspection, full range of motion, supple, no bony tend Respiratory: normal inspection, lungs clear, normal breath sounds, no respiratory distress, no retraction, no wheezing Cardiovascular #1: regular rate, rhythm, no edema Gastrointestinal: normal inspection, normal bowel sounds, no guarding, no hernia, tenderness Genitourinary: no CVA tenderness Musculoskeletal: normal inspection, back normal, normal range of motion Neurologic: normal inspection, alert, oriented x3, responsive, deodorizer operator III-XII nml as tested, motor strength/tone normal, speech normal Psychiatric: normal inspection, judgement/insight normal, mood/affect normal Skin: normal inspection, normal color, no rash Medical Decision Making Diagnostic Impression: Primary Impression: Abdominal pain ER Course Patient presented for abdominal pain. Differential diagnoses included ischemic bowel, appendicitis, perforated viscus, abdominal aortic aneurysm, inferior myocardial infarction, viral gastroenteritis Because of complexity of patient's case laboratory testing and imaging studies were ordered. The patient was noted to have prior history of abnormal lymph nodes to her abdomen. The laboratory testing initially was unremarkable. The patient noted have persistent pain unresponsive to morphine. Patient was also given IV Pepcid for possible ulcer. The patient was discussed with Dr. Griffin for inpatient management due to covering physician.CT abdomen pelvis was ordered and will be followed up by Dr. Griffin Labs Test 12/12/17 18:14 White Blood Count 5.7 K/UL (4.8-10.8) Red Blood Count 4.98 M/UL (4.20-5.40) Hemoglobin 13.8 G/DL (12.0-16.0) Hematocrit 41.1 % (37.0-47.0) Mean Corpuscular Volume 83 FL (80-99) Mean Corpuscular Hemoglobin 27.8 PG (27.0-31.0) Mean Corpuscular Hemoglobin Concent 33.7 G/DL (32.0-36.0) Red Cell Distribution Width 12.8 % (11.6-14.8) Platelet Count 236 K/UL (150-450) Mean Platelet Volume 7.0 FL (6.5-10.1) Neutrophils (%) (Auto) 50.8 % (45.0-75.0) Lymphocytes (%) (Auto) 37.2 % (20.0-45.0) Monocytes (%) (Auto) 5.7 % (1.0-10.0) Eosinophils (%) (Auto) 3.8 % (0.0-3.0) Basophils (%) (Auto) 2.5 % (0.0-2.0) Prothrombin Time 11.1 SEC (9.30-11.50) Prothromb Time International Ratio 1.1 (0.9-1.1) Activated Partial Thromboplast Time 28 SEC (23-33) Urine Color Pale yellow Urine Appearance Clear Urine pH 6 (4.5-8.0) Urine Specific [place] 1.015 (1.005-1.035) Urine Protein Negative (NEGATIVE) Urine Glucose (UA) 4+ (NEGATIVE) Urine Ketones 1+ (NEGATIVE) Urine Occult Blood Negative (NEGATIVE) Urine Nitrite Negative (NEGATIVE) Urine Bilirubin Negative (NEGATIVE) Urine Urobilinogen Normal MG/DL (0.0-1.0) Urine Leukocyte Esterase Negative (NEGATIVE) Sodium Level 140 MMOL/L (136-145) Potassium Level 3.9 MMOL/L (3.5-5.1) Chloride Level 104 MMOL/L (98-107) Carbon Dioxide Level 27 MMOL/L (21-32) Anion Gap 9 mmol/L (5-15) Blood Urea Nitrogen 9 mg/dL (7-18) Creatinine 0.8 MG/DL (0.55-1.30) Estimat Glomerular Filtration Rate > 60 mL/min (>60) Glucose Level 119 MG/DL (74-106) Calcium Level 9.5 MG/DL (8.5-10.1) Total Bilirubin 0.5 MG/DL (0.2-1.0) Aspartate Amino Transf (AST/SGOT) 12 U/L (15-37) Alanine Aminotransferase (ALT/SGPT) 22 U/L (12-78) Alkaline Phosphatase 97 U/L (46-116) Troponin I 0.000 ng/mL (0.000-0.056) Total Protein 8.5 G/DL (6.4-8.2) Albumin 4.3 G/DL (3.4-5.0) Globulin 4.2 g/dL Albumin/Globulin Ratio 1.0 (1.0-2.7) Lipase 84 U/L (73-393) Last Vital Signs Date Time Temp Pulse Resp B/P (MAP) Pulse Ox O2 Delivery O2 Flow Rate FiO2 12/12/17 21:25 98.1 57 18 134/98 98 Room Air 208.6 Status: unchanged Disposition: ADMITTED INPATIENT Condition: Serious Referrals: Leanne Holland MD (PCP) Zen Zarco MD Dec 12, 2017 22:35
--- NOTE | 2017-12-12 22:50 | Diagnostic Imaging Report ---
EXAM: CT Abdomen and Pelvis With Intravenous Contrast CLINICAL HISTORY: PAIN TECHNIQUE: Axial computed tomography images of the abdomen and pelvis with intravenous contrast. CTDI is 21 mGy and DLP is 484 mGy-cm. One or more of the following dose reduction techniques were used: automated exposure control, adjustment of the mA and/or kV according to patient size, use of iterative reconstruction technique. COMPARISON: No relevant prior studies available. FINDINGS: Lung bases: Unremarkable. No mass. No consolidation. ABDOMEN: Liver: Hepatomegaly Gallbladder and bile ducts: Unremarkable. No calcified stones. No ductal dilation. Pancreas: Unremarkable. No mass. No ductal dilation. Spleen: Unremarkable. No splenomegaly. Adrenals: Unremarkable. No mass. Kidneys and ureters: Unremarkable. No solid mass. No hydronephrosis. Stomach and bowel: Abundant stool in the colon. No obstruction. No mucosal thickening. PELVIS: Appendix: No findings to suggest acute appendicitis. Bladder: Unremarkable. No mass. Reproductive: Hysterectomy. ABDOMEN and PELVIS: Intraperitoneal space: Unremarkable. No free air. No significant fluid collection. Bones/joints: No acute fracture. No dislocation. Soft tissues: Unremarkable. Vasculature: Unremarkable. No abdominal aortic aneurysm. Lymph nodes: Unremarkable. No enlarged lymph nodes. IMPRESSION: No acute findings.
[2017-12-12] MEDS ORDERED: Morphine Sulfate 4mg/ml Inj (IV USE ONLY) IVP PRN (23:30)
[2017-12-13] MEDS: Morphine Sulfate 4mg/ml Inj (IV USE ONLY) IVP PRN ×4 (00:08→20:39)
[2017-12-13] MEDS: Heparin 5000 units/ml inj SUBQ SCH ×4 (00:30→21:19)
[2017-12-13] MEDS ORDERED: Zolpidem 5mg tab ORAL ONE (01:00)
[2017-12-13 04:00] VITALS: BP 121/69
[2017-12-13] MEDS: D5 1/2NS w/KCl 20mEq 1,000 ML IV SCH (04:00)
[2017-12-13 06:13] LABS: BASOPHILS % (AUTO) 1.6 % (0.0-2.0); EOSINOPHILS % (AUTO) 4.7 % (0.0-3.0); HEMOGLOBIN 13.5 G/DL (12.0-16.0); LYMPHOCYTES % (AUTO) 41.6 % (20.0-45.0); MEAN CORPUSCULAR VOLUME 84 FL (80-99); MONOCYTES % (AUTO) 7.3 % (1.0-10.0); NEUTROPHILS % (AUTO) 44.8 % (45.0-75.0); PLATELET COUNT 235 K/UL (150-450); RED BLOOD COUNT 4.77 M/UL (4.20-5.40); RED CELL DISTRIBUTION WIDTH 12.7 % (11.6-14.8); WHITE BLOOD COUNT 4.3 K/UL (4.8-10.8)
[2017-12-13] MEDS: NovoLOG Insulin Flexpen SUBQ SCH ×4 (06:15→21:02)
[2017-12-13 06:51] LABS: ALANINE AMINOTRANSFERASE 19 U/L (12-78); ALBUMIN 3.6 G/DL (3.4-5.0); ALBUMIN/GLOBULIN RATIO 0.9 (1.0-2.7); ALKALINE PHOSPHATASE 84 U/L (46-116); ANION GAP 5 mmol/L (5-15); ASPARTATE AMINO TRANSFERASE 11 U/L (15-37); BILIRUBIN,TOTAL 0.5 MG/DL (0.2-1.0); BLOOD UREA NITROGEN 8 mg/dL (7-18); CALCIUM 8.9 MG/DL (8.5-10.1); CARBON DIOXIDE 31 MMOL/L (21-32); CHLORIDE 104 MMOL/L (98-107); CREATININE 0.9 MG/DL (0.55-1.30); PHOSPHORUS 4.6 MG/DL (2.5-4.9); POTASSIUM 4.2 MMOL/L (3.5-5.1); SODIUM 140 MMOL/L (136-145)
[2017-12-13 08:00] VITALS: BP 123/70
--- NOTE | 2017-12-13 10:03 | Consultation ---
History of Present Illness General Date patient seen: Dec 13, 2017 Chief Complaint: Abdominal Pain Present Illness HPI 57-year-old female with chronic abdominal pain, recent intraabdominal LN biopsy presented with CC of increased epigastric pain with gradual onset of symptoms. Patient reported having worst epigastric pain associated with some nausea and radiation to her back. Patient was noted to have increased abdominal pain today. She denied any bleeding or hematemesis. Allergies: Coded Allergies: No Known Allergies (Unverified , 09/22/14) Medication History Scheduled Amlodipine Besylate* (Amlodipine Besylate*), 10 MG ORAL DAILY, (Reported) Ascorbic Acid* (Vitamin C*), 1,000 MG ORAL DAILY, (Reported) Calcium Carbonate (Calcium), 500 MG PO DAILY, (Reported) Colostrum, Bovine (Colostrum), 500 MG PO DAILY, (Reported) Magnesium Oxide (Magnesium), 250 MG PO DAILY, (Reported) Multivitamins* (Multivitamins*), 1 TAB ORAL DAILY, (Reported) Oregano Oil (Oil Of Oregano), 1,500 MG PO DAILY, (Reported) Quetiapine Fumarate (Seroquel), 50 MG ORAL BEDTIME, (Reported) Sitagliptin (Januvia), 100 MG ORAL DAILY, (Reported) Tryptophan (L-Tryptophan), 500 MG PO DAILY, (Reported) Vitamin D (Vitamin D3), 40,000 UNITS ORAL DAILY, (Reported) Zolpidem Tartrate* (Ambien*), 10 MG ORAL BEDTIME, (Reported) Scheduled PRN Carisoprodol* (Soma*), 350 MG PO BID PRN for Muscle Spasm, (Reported) Dronabinol* (Marinol*), 2.5 MG ORAL DAILY PRN for Nausea & Vomiting, (Reported) Levocetirizine Dihydrochloride (Xyzal), 5 MG ORAL DAILY PRN for Itching, ( Reported) Melatonin (Melatonin), 3 MG ORAL BEDTIME PRN for Insomnia, (Reported) Tramadol Hcl* (Ultram*), 50 MG ORAL THREE TIMES A DAY PRN for For Pain, ( Reported) Discontinued Medications Diclofenac Sod* (Voltaren*), 75 MG ORAL BID, (Reported) Discontinued Reason: Pt stopped taking med Divalproex Sodium (Depakote), 500 MG PO TID, (Reported) Discontinued Reason: Pt stopped taking med Gabapentin* (Neurontin*), 300 MG ORAL Q8HR, (Reported) Discontinued Reason: Pt stopped taking med Hydrocodone Bit/Acetaminophen 7.5-325* ([place] 7.5-325*), 1 TAB ORAL Q4H PRN for For Pain, (Reported) Discontinued Reason: Pt stopped taking med Losartan Potassium* (Losartan Potassium*), 100 MG ORAL DAILY, (Reported) Discontinued Reason: Pt stopped taking med Metformin Hcl* (Metformin Hcl*), 1,000 MG ORAL BID, (Reported) Discontinued Reason: Pt stopped taking med OXYCODONE HCl* (Roxicodone*), 15 MG ORAL Q6H PRN for For Pain, (Reported) Discontinued Reason: Pt stopped taking med Omeprazole (Omeprazole), 40 MG ORAL DAILY, (Reported) Discontinued Reason: Pt stopped taking med Oxybutynin Chloride (Oxybutynin Chloride), 5 MG ORAL QHS, (Reported) Discontinued Reason: Pt stopped taking med Paroxetine Hcl* (Paxil*), 20 MG ORAL DAILY, (Reported) Discontinued Reason: Pt stopped taking med Repaglinide (Prandin), 1 MG ORAL THREE TIMES A DAY, (Reported) Discontinued Reason: Pt stopped taking med Patient History Healthcare decision maker Resuscitation status Full Code Advanced Directive on File No Past Medical/Surgical History Past Medical/Surgical History: (1) HTN (hypertension) (2) Diabetes (3) Bipolar 1 disorder Review of Systems All Other Systems: negative except mentioned in HPI Physical Exam General Appearance: WD/WN Lines, tubes and drains: peripheral HEENT: normocephalic, atraumatic Neck: non-tender, normal alignment Respiratory/Chest: chest wall non-tender, lungs clear Cardiovascular/Chest: normal peripheral pulses, normal rate Abdomen: normal bowel sounds, non tender Genitourinary/Rectal: normal genital exam Extremities: normal range of motion Skin Exam: normal pigmentation Neurologic: counter hop II-XII grossly normal Last 24 Hour Vital Signs Date Time Temp Pulse Resp B/P (MAP) Pulse Ox O2 Delivery O2 Flow Rate FiO2 12/13/17 08:00 98.4 63 20 123/70 (87) 97 98.4 12/13/17 04:00 98.6 61 19 121/69 (86) 96 98.6 12/13/17 03:54 Room Air 12/12/17 21:25 98.1 57 18 134/98 98 Room Air 208.6 12/12/17 19:00 98.1 12/12/17 18:42 98.1 12/12/17 18:19 57 18 134/98 98 Room Air 12/12/17 18:12 98.1 12/12/17 17:27 98.1 73 14 136/83 98 Room Air 98.1 Intake and Output 12/12/17 12/13/17 19:00 07:00 Intake Total 800 ml Balance 800 ml Intake Oral 0 ml IV Total 800 ml # Voids 1 Laboratory Tests Test 12/12/17 18:14 12/13/17 05:55 White Blood Count 5.7 K/UL (4.8-10.8) 4.3 K/UL (4.8-10.8) L Red Blood Count 4.98 M/UL (4.20-5.40) 4.77 M/UL (4.20-5.40) Hemoglobin 13.8 G/DL (12.0-16.0) 13.5 G/DL (12.0-16.0) Hematocrit 41.1 % (37.0-47.0) 40.0 % (37.0-47.0) Mean Corpuscular Volume 83 FL (80-99) 84 FL (80-99) Mean Corpuscular Hemoglobin 27.8 PG (27.0-31.0) 28.2 PG (27.0-31.0) Mean Corpuscular Hemoglobin Concent 33.7 G/DL (32.0-36.0) 33.7 G/DL (32.0-36.0) Red Cell Distribution Width 12.8 % (11.6-14.8) 12.7 % (11.6-14.8) Platelet Count 236 K/UL (150-450) 235 K/UL (150-450) Mean Platelet Volume 7.0 FL (6.5-10.1) 8.0 FL (6.5-10.1) Neutrophils (%) (Auto) 50.8 % (45.0-75.0) 44.8 % (45.0-75.0) L Lymphocytes (%) (Auto) 37.2 % (20.0-45.0) 41.6 % (20.0-45.0) Monocytes (%) (Auto) 5.7 % (1.0-10.0) 7.3 % (1.0-10.0) Eosinophils (%) (Auto) 3.8 % (0.0-3.0) H 4.7 % (0.0-3.0) H Basophils (%) (Auto) 2.5 % (0.0-2.0) H 1.6 % (0.0-2.0) Prothrombin Time 11.1 SEC (9.30-11.50) Prothromb Time International Ratio 1.1 (0.9-1.1) Activated Partial Thromboplast Time 28 SEC (23-33) Urine Color Pale yellow Urine Appearance Clear Urine pH 6 (4.5-8.0) Urine Specific [place] 1.015 (1.005-1.035) Urine Protein Negative (NEGATIVE) Urine Glucose (UA) 4+ (NEGATIVE) H Urine Ketones 1+ (NEGATIVE) H Urine Occult Blood Negative (NEGATIVE) Urine Nitrite Negative (NEGATIVE) Urine Bilirubin Negative (NEGATIVE) Urine Urobilinogen Normal MG/DL (0.0-1.0) Urine Leukocyte Esterase Negative (NEGATIVE) Sodium Level 140 MMOL/L (136-145) 140 MMOL/L (136-145) Potassium Level 3.9 MMOL/L (3.5-5.1) 4.2 MMOL/L (3.5-5.1) Chloride Level 104 MMOL/L (98-107) 104 MMOL/L (98-107) Carbon Dioxide Level 27 MMOL/L (21-32) 31 MMOL/L (21-32) Anion Gap 9 mmol/L (5-15) 5 mmol/L (5-15) Blood Urea Nitrogen 9 mg/dL (7-18) 8 mg/dL (7-18) Creatinine 0.8 MG/DL (0.55-1.30) 0.9 MG/DL (0.55-1.30) Estimat Glomerular Filtration Rate > 60 mL/min (>60) > 60 mL/min (>60) Glucose Level 119 MG/DL (74-106) H 138 MG/DL (74-106) H Calcium Level 9.5 MG/DL (8.5-10.1) 8.9 MG/DL (8.5-10.1) Total Bilirubin 0.5 MG/DL (0.2-1.0) 0.5 MG/DL (0.2-1.0) Aspartate Amino Transf (AST/SGOT) 12 U/L (15-37) L 11 U/L (15-37) L Alanine Aminotransferase (ALT/SGPT) 22 U/L (12-78) 19 U/L (12-78) Alkaline Phosphatase 97 U/L (46-116) 84 U/L (46-116) Troponin I 0.000 ng/mL (0.000-0.056) Total Protein 8.5 G/DL (6.4-8.2) H 7.4 G/DL (6.4-8.2) Albumin 4.3 G/DL (3.4-5.0) 3.6 G/DL (3.4-5.0) Globulin 4.2 g/dL 3.8 g/dL Albumin/Globulin Ratio 1.0 (1.0-2.7) 0.9 (1.0-2.7) L Lipase 84 U/L (73-393) Phosphorus Level 4.6 MG/DL (2.5-4.9) Magnesium Level 2.0 MG/DL (1.8-2.4) Height (Feet): 5 Height (Inches): 8.00 Weight (Pounds): 194 Medications Current Medications Medications (Trade) Dose Ordered Sig/Elizabeth Route PRN Reason Start Time Stop Time Status Last Admin Dose Admin Amlodipine Besylate (Norvasc) 5 mg DAILY ORAL 12/13/17 09:00 01/12/18 08:59 Ascorbic Acid (Vitamin C) 1,000 mg DAILY ORAL 12/13/17 09:00 01/12/18 08:59 Barium Sulfate (Readi-Cat 2) 450 ml NOW PRN ORAL Radiology Procedure 12/12/17 20:00 12/14/17 19:46 Carisoprodol (Soma) 350 mg BID PRN ORAL Muscle Spasm 12/13/17 03:30 01/12/18 03:29 Dextrose (Dextrose 50%) 25 ml STAT PRN IV Hypoglycemia 12/12/17 23:30 01/11/18 23:29 Dextrose (Dextrose 50%) 50 ml STAT PRN IV Hypoglycemia 12/12/17 23:30 01/11/18 23:29 Docusate Sodium (Colace) 100 mg TWICE A DAY ORAL 12/13/17 18:00 01/12/18 17:59 Heparin Sodium (Porcine) (Heparin 5000 units/ml) 5,000 units EVERY 8 HOURS SUBQ 12/12/17 23:45 01/11/18 23:44 12/13/17 06:11 Insulin Aspart (NovoLOG) BEFORE MEALS AND HS SUBQ 12/13/17 06:30 01/12/18 06:29 12/13/17 06:15 Iopamidol (Isovue-300 100ml) 100 ml NOW PRN INJ Radiology Procedure 12/12/17 20:00 Lactulose (Cephulac) 10 gm THREE TIMES A DAY ORAL 12/13/17 13:00 01/12/18 12:59 Magnesium Oxide (Mag-Ox 400mg) 400 mg DAILY ORAL 12/13/17 09:00 01/12/18 08:59 Morphine Sulfate (Morphine Sulfate) 4 mg Q4H PRN IVP For Pain 12/12/17 23:30 12/19/17 23:29 Morphine Sulfate (Morphine Sulfate) 6 mg Q4H PRN IVP Severe Pain (Pain Scale 7-10) 12/12/17 23:30 12/19/17 23:29 12/13/17 00:08 Ondansetron HCl (Zofran) 4 mg Q4H PRN IVP Nausea & Vomiting 12/12/17 23:30 01/11/18 23:29 12/13/17 00:29 Polyethylene Glycol (Miralax) 17 gm BEDTIME ORAL 12/13/17 21:00 01/12/18 20:59 Quetiapine Fumarate (SEROquel) 50 mg BEDTIME ORAL 12/13/17 00:00 01/12/18 20:59 12/13/17 00:29 Sitagliptin Phosphate (Januvia) 100 mg DAILY ORAL 12/13/17 09:00 01/12/18 08:59 Zolpidem Tartrate (Ambien) 10 mg BEDTIME PRN ORAL Insomnia 12/13/17 21:00 12/20/17 20:59 Assessment/Plan Problem List: (1) Abdominal pain ICD Codes: R10.9 - Abdominal pain SNOMED: 68878569 (2) Diabetes ICD Codes: E11.9 - Diabetes SNOMED: 53881143 (3) HTN (hypertension) ICD Codes: I10 - HTN (hypertension) SNOMED: 96850988 (4) Bipolar 1 disorder ICD Codes: F31.9 - Bipolar 1 disorder SNOMED: 021944572 Assessment/Plan npo iv fluids check electrolytes GI evaluation symptomatic treatment Catalina Stafford MD Dec 13, 2017 10:03
[2017-12-13] MEDS: Magnesium Oxide 400mg tab ORAL SCH (10:16)
[2017-12-13] MEDS: Ascorbic Acid 500mg tab ORAL SCH (10:16)
--- NOTE | 2017-12-13 11:15 | Consultation ---
DATE OF CONSULTATION: 12/13/2017 GASTROENTEROLOGY CONSULTATION CONSULTING PHYSICIAN: Woodrow Mcintosh M.D. REFERRING PHYSICIAN: 1. Mike Griffin M.D. 2. Leanne Holland M.D. CHIEF COMPLAINT: Abdominal pain. HISTORY OF PRESENT ILLNESS: This is a 57-year-old female with past medical history of diabetes and history of recent weight loss, who was admitted to the hospital with complaint of abdominal pain. According to her, she had an endoscopy and colonoscopy done recently. She lost about she stated about 15 pounds for the last 6 months unwanted. Apparently, she had an MRI done at [facility] which showed peripancreatic lymphadenopathy, but of note, the patient had a CT done here in the ER at [facility] which did not show any of those, so basically the patient is admitted for further workup. She also complained of no BM and severe constipation. PAST MEDICAL HISTORY: 1. Depression. 2. GERD. 3. Hypertension. 4. History of kidney stones. 5. Enlarged liver. 6. Bipolar disorder. ALLERGIES: No known allergies. MEDICATIONS: Refer to medication reconciliation list. PAST SURGICAL HISTORY: 1. Appendectomy. 2. Umbilical hernia repair. 3. Tonsillectomy. 4. Right rotator cuff repair. 5. Hysterectomy. REVIEW OF SYSTEMS: A 10-point review of systems was performed and pertinent positives are in HPI. FAMILY HISTORY: Noncontributory. SOCIAL HISTORY: The patient denies any tobacco, alcohol, or illicit drug abuse. PHYSICAL EXAMINATION: GENERAL: This is a well-developed female. VITAL SIGNS: Temperature 98.4, pulse 63, respirations 20, and blood pressure 123/70. HEENT: Normocephalic and atraumatic. Sclerae anicteric. NECK: Supple. No evidence of obvious lymphadenopathy. CARDIOVASCULAR: Regular rhythm. Plus S1 and S2. No obvious murmur. LUNGS: Clear to auscultation bilaterally. ABDOMEN: Positive bowel sounds. Soft. There is tenderness to palpation in the epigastric area. No rebound. No guarding. No peritoneal sign. EXTREMITIES: No cyanosis, no clubbing, no edema. LABORATORY DATA: Sodium 140, potassium 4.2, BUN is 8, creatinine 0.9. ASSESSMENT: This is a 57-year-old female with abdominal pain of unknown etiology at this time. There was some peripancreatic lymph node seen on MRI at [facility] per the patient, which was not seen here on the CT scan. The patient also complained of severe constipation. PLAN: Start the patient on Protonix for epigastric abdominal pain. Bowel regimen with Colace, MiraLAX, and lactulose and we will add more if needed. The patient currently on pain medication. Plan will be to do an endoscopic ultrasound on Friday for evaluation of peripancreatic lymph nodes which had been seen on MRI, also for further evaluation for weight loss. I want to thank Dr. Griffin and Dr. Holland for this kind referral. Woodrow Mcintosh M.D. DRCara Shepherd JOB#: [id number] CC: Mike Griffin M.D.; Fax#: [phone] LEANNE HOLLAND M.D. ; FAX#: [phone]
[2017-12-13 12:00] VITALS: BP 116/71
[2017-12-13] MEDS: Lactulose 10gm/15ml UDC ORAL SCH ×2 (13:51→17:23)
--- NOTE | 2017-12-13 14:12 | Diagnostic Imaging Report ---
APPROVED REPORT CPT Code: 15228 Present Symptoms Comments: BILATERAL LEGS PAIN. BILATERAL: Imaging reveals a patent deep venous system bilaterally. There is no evidence of thrombus within the femoral, popliteal or tibial segments. The greater saphenous veins are also within normal limits. Doppler indicates normal spontaneous flow within these segments.
[2017-12-13 16:00] VITALS: BP 108/58
[2017-12-13] MEDS: Docusate 100mg cap ORAL SCH (17:23)
--- NOTE | 2017-12-13 19:45 | History and Physical Report ---
DATE OF ADMISSION: 12/12/2017 CHIEF COMPLAINT: The patient is a 57-year-old female, who presents with a chief complaint of abdominal pain. HISTORY OF PRESENT ILLNESS: The patient was admitted to [facility] in May of 2017. The patient was diagnosed with pancreatitis. The patient has been followed as an outpatient by Dr. Leanne Holland. The patient has been diagnosed with enlarged lymph nodes around the hepatic portal vein. This has been biopsied at [facility]. The patient states history of the present illness began on 12/07/2017. The patient began to experience abdominal pain. This is intensified over the last week. The patient was unable to tolerate p.o. liquids or solids. The patient was evaluated by Dr. Leanne Holland on 12/12/2017. The patient was given fluids in the clinic. The patient is transferred to [facility] for esophageal ultrasound of the enlarged lymph nodes. Dr. Mcintosh has been notified. PAST MEDICAL HISTORY: Significant for, 1. Type 2 diabetes. 2. Hypertension. 3. Bipolar depression. PAST SURGICAL HISTORY: Significant for, 1. Appendectomy. 2. Total abdominal hysterectomy. 3. Umbilical hernia repair. 4. Tonsillectomy. 5. Right rotator cuff tear repair. CURRENT MEDICATIONS: 1. Amlodipine 10 mg one tablet p.o. daily. 2. Vitamin C 1000 mg p.o. daily. 3. Calcium carbonate 500 mg p.o. daily. 4. Soma 350 mg p.o. twice daily. 5. Colostrum 500 mg p.o. daily. 6. Marinol 2.5 mg p.o. daily. 7. Xyzal 5 mg p.o. daily. 8. Magnesium oxide 250 mg p.o. daily. 9. Melatonin 3 mg p.o. at bedtime. 10. Multivitamin one tablet p.o. daily. 11. Seroquel 50 mg p.o. at bedtime. 12. Sitagliptin 100 mg p.o. daily. 13. Tramadol 50 mg p.o. 3 times daily p.r.n. 14. L-tryptophan 500 mg p.o. daily. 15. Vitamin D 400 units p.o. daily. 16. Ambien 10 mg p.o. at bedtime. ALLERGIES: No known drug allergies. SOCIAL HISTORY: The patient is and is currently disabled. The patient denies tobacco or alcohol use. REVIEW OF SYSTEMS: CONSTITUTIONAL: The patient denies weight loss or weight gain. The patient denies fevers or chills. HEENT: The patient denies ear or throat pain. The patient has headache. CARDIOVASCULAR: The patient denies palpitations or chest pain. CHEST: The patient denies wheeze or shortness of breath. ABDOMEN: The patient complains of epigastric pain as above. The patient denies nausea, vomiting, diarrhea, or constipation. GENITOURINARY: The patient denies dysuria or increased frequency of urination. NEUROMUSCULAR: The patient denies seizures or generalized weakness. PHYSICAL EXAMINATION: VITAL SIGNS: Temperature 98.6, respirations 19, pulse 61, and blood pressure 120/69. GENERAL: The patient is a well-developed and well-nourished female, in no apparent distress. HEENT: Eyes, pupils equal and responsive to light and accommodation. Extraocular movements are intact. NECK: Supple without lymphadenopathy. CHEST: Lungs are clear to auscultation bilaterally without wheezes or rales. CARDIOVASCULAR: Regular rhythm and rate. S1 and S2 are normal without murmurs, rubs, or gallops. ABDOMEN: Soft and nondistended. Positive bowel sounds. There is pain to palpation in the epigastric region. There is no rebound or guarding noted. EXTREMITIES: Negative for clubbing, cyanosis, or edema. RECTAL/GENITAL: Refused. NEUROLOGIC: Cranial nerves II through XII are grossly intact without focal deficits. Motor strength is 5/5 bilaterally. Deep tendon reflexes are 2+ plantar. LABORATORY STUDIES: WBC 5.7, hemoglobin 13.8, hematocrit 41.1, and platelets 236,000. Sodium 140, potassium 3.9, chloride 104, CO2 27, BUN 9, creatinine 0.8, and glucose 119. AST elevated. Troponin was normal at 0.0. Lipase was normal at 84. A CT scan of the abdomen and pelvis was reported as no acute findings. ASSESSMENT: This is a 57-year-old female. 1. Epigastric pain. 2. Intraabdominal lymphadenopathy. 3. Diabetes type 2. 4. Hypertension. 5. Bipolar depression. TREATMENT: 1. Abdominal pain/enlarged intraabdominal lymph nodes. A Gastroenterology consultation has been obtained with Dr. Woodrow Vosoghi. The patient is scheduled for an EUS on 12/15/2017. We will follow recommendations of Gastroenterology. 2. Diabetes type 2. A NovoLog sliding scale has been instituted. 3. Hypertension. Continue amlodipine as above. 4. Bipolar depression. Continue Seroquel as above. Bonilla Watt M.D. DR: FRANCHESKA JOB#: [id number] CC:
[2017-12-13 20:00] VITALS: BP 119/77
[2017-12-13] MEDS: Miralax 17gm pkt ORAL SCH (20:39)
[2017-12-13] MEDS ORDERED: Zolpidem 5mg tab ORAL SCH ×2 (21:00)
[2017-12-13] MEDS: Zolpidem 5mg tab ORAL PRN (21:15)
[2017-12-14] VITALS: BP 93/65
[2017-12-14 04:00] VITALS: BP 102/70
[2017-12-14] MEDS: Morphine Sulfate 4mg/ml Inj (IV USE ONLY) IVP PRN ×5 (04:38→22:06)
[2017-12-14] MEDS: NovoLOG Insulin Flexpen SUBQ SCH ×4 (06:20→20:22)
[2017-12-14] MEDS: Heparin 5000 units/ml inj SUBQ SCH ×3 (06:21→20:16)
[2017-12-14 07:48] LABS: BASOPHILS % (AUTO) 1.5 % (0.0-2.0); EOSINOPHILS % (AUTO) 4.5 % (0.0-3.0); HEMATOCRIT 40.5 % (37.0-47.0); HEMOGLOBIN 12.9 G/DL (12.0-16.0); LYMPHOCYTES % (AUTO) 38.3 % (20.0-45.0); MEAN CORPUSCULAR VOLUME 84 FL (80-99); MONOCYTES % (AUTO) 6.3 % (1.0-10.0); NEUTROPHILS % (AUTO) 49.4 % (45.0-75.0); PLATELET COUNT 244 K/UL (150-450); RED BLOOD COUNT 4.83 M/UL (4.20-5.40); RED CELL DISTRIBUTION WIDTH 12.6 % (11.6-14.8); WHITE BLOOD COUNT 4.8 K/UL (4.8-10.8)
[2017-12-14 08:00] VITALS: BP 107/68
[2017-12-14 08:20] LABS: ALANINE AMINOTRANSFERASE 19 U/L (12-78); ALBUMIN 3.6 G/DL (3.4-5.0); ALBUMIN/GLOBULIN RATIO 0.9 (1.0-2.7); ALKALINE PHOSPHATASE 81 U/L (46-116); ANION GAP 7 mmol/L (5-15); ASPARTATE AMINO TRANSFERASE 11 U/L (15-37); BILIRUBIN,TOTAL 0.3 MG/DL (0.2-1.0); BLOOD UREA NITROGEN 16 mg/dL (7-18); CALCIUM 9.3 MG/DL (8.5-10.1); CARBON DIOXIDE 29 MMOL/L (21-32); CHLORIDE 105 MMOL/L (98-107); CREATININE 0.8 MG/DL (0.55-1.30); SODIUM 141 MMOL/L (136-145)
[2017-12-14] MEDS: Lactulose 10gm/15ml UDC ORAL SCH ×3 (08:47→17:50)
[2017-12-14] MEDS: Ascorbic Acid 500mg tab ORAL SCH (08:48)
[2017-12-14] MEDS: Docusate 100mg cap ORAL SCH ×2 (08:48→17:51)
[2017-12-14] MEDS: Magnesium Oxide 400mg tab ORAL SCH (08:48)
[2017-12-14] MEDS ORDERED: Mineral Oil 30ml ud ORAL PRN (10:36)
--- NOTE | 2017-12-14 10:40 | General Progress Note ---
Assessment/Plan Problem List: (1) Constipation ICD Codes: K59.00 - Constipation, unspecified SNOMED: 92863199 (2) Abdominal pain ICD Codes: R10.9 - Abdominal pain SNOMED: 66639895 (3) HTN (hypertension) ICD Codes: I10 - HTN (hypertension) SNOMED: 55103042 (4) Diabetes ICD Codes: E11.9 - Diabetes SNOMED: 08483794 (5) Diverticulosis ICD Codes: K57.90 - Diverticulosis SNOMED: 106821479 Assessment/Plan add mineral oil plan egd/eus Subjective ROS Limited/Unobtainable: Yes Allergies: Coded Allergies: No Known Allergies (Unverified , 09/22/14) Subjective had one BM c/o abd pain Objective Last 24 Hour Vital Signs Date Time Temp Pulse Resp B/P (MAP) Pulse Ox O2 Delivery O2 Flow Rate FiO2 12/14/17 09:18 98.3 12/14/17 08:48 83 102/70 12/14/17 08:48 98.3 12/14/17 08:00 98.6 80 19 107/68 (81) 98 98.6 12/14/17 04:38 98.3 12/14/17 04:00 98.6 83 18 102/70 (81) 96 98.6 12/14/17 00:00 98.3 83 18 93/65 (74) 93 98.3 12/13/17 21:00 Room Air 12/13/17 20:39 98.2 12/13/17 20:00 97.5 95 19 119/77 (91) 96 97.5 12/13/17 16:00 98.2 76 20 108/58 (75) 97 98.2 12/13/17 12:00 97.4 86 20 116/71 (86) 97 97.4 Intake and Output 12/13/17 12/14/17 19:00 07:00 Intake Total 1040 ml 240 ml Balance 1040 ml 240 ml Intake Oral 1040 ml 240 ml # Voids 4 2 # Bowel Movements 1 Laboratory Tests 12/13/17 15:37: Stool Occult Blood [Pending] 12/14/17 07:00: White Blood Count 4.8, Red Blood Count 4.83, Hemoglobin 12.9, Hematocrit 40.5, Mean Corpuscular Volume 84, Mean Corpuscular Hemoglobin 26.8L, Mean Corpuscular Hemoglobin Concent 32.0, Red Cell Distribution Width 12.6, Platelet Count 244, Mean Platelet Volume 7.8, Neutrophils (%) (Auto) 49.4, Lymphocytes (%) (Auto) 38.3, Monocytes (%) (Auto) 6.3, Eosinophils (%) (Auto) 4.5H, Basophils (%) (Auto ) 1.5, Sodium Level 141, Potassium Level 4.0, Chloride Level 105, Carbon Dioxide Level 29, Anion Gap 7, Blood Urea Nitrogen 16, Creatinine 0.8, Estimat Glomerular Filtration Rate > 60, Glucose Level 112H, Calcium Level 9.3, Total Bilirubin 0.3, Aspartate Amino Transf (AST/SGOT) 11L, Alanine Aminotransferase ( ALT/SGPT) 19, Alkaline Phosphatase 81, Total Protein 7.4, Albumin 3.6, Globulin 3.8, Albumin/Globulin Ratio 0.9L, Carcinoembryonic Antigen [Pending], CA 19-9 Antigen [Pending] Height (Feet): 5 Height (Inches): 8.00 Weight (Pounds): 194 General Appearance: alert EENT: normal ENT inspection Neck: supple Cardiovascular: normal rate Respiratory/Chest: decreased breath sounds Abdomen: normal bowel sounds, non tender, soft Extremities: non-tender Woodrow Mcintosh MD Dec 14, 2017 10:40
[2017-12-14 12:00] VITALS: BP 120/75
--- NOTE | 2017-12-14 13:56 | Internal Med Progress Note ---
Subjective Date of Service: Dec 14, 2017 Physician Name Bonilla Watt Attending Physician Mike Griffin MD Current Medications Medications (Trade) Dose Ordered Sig/Elizabeth Route PRN Reason Start Time Stop Time Status Last Admin Dose Admin Amlodipine Besylate (Norvasc) 5 mg DAILY ORAL 12/13/17 09:00 01/12/18 08:59 12/14/17 08:48 Ascorbic Acid (Vitamin C) 1,000 mg DAILY ORAL 12/13/17 09:00 01/12/18 08:59 12/14/17 08:48 Barium Sulfate (Readi-Cat 2) 450 ml NOW PRN ORAL Radiology Procedure 12/12/17 20:00 12/14/17 19:46 Carisoprodol (Soma) 350 mg BID PRN ORAL Muscle Spasm 12/13/17 03:30 01/12/18 03:29 12/14/17 11:30 Dextrose (Dextrose 50%) 25 ml STAT PRN IV Hypoglycemia 12/12/17 23:30 01/11/18 23:29 Dextrose (Dextrose 50%) 50 ml STAT PRN IV Hypoglycemia 12/12/17 23:30 01/11/18 23:29 Docusate Sodium (Colace) 100 mg TWICE A DAY ORAL 12/13/17 18:00 01/12/18 17:59 12/14/17 08:48 Heparin Sodium (Porcine) (Heparin 5000 units/ml) 5,000 units EVERY 8 HOURS SUBQ 12/12/17 23:45 01/11/18 23:44 12/14/17 13:45 Insulin Aspart (NovoLOG) BEFORE MEALS AND HS SUBQ 12/13/17 06:30 01/12/18 06:29 12/14/17 06:20 Iopamidol (Isovue-300 100ml) 100 ml NOW PRN INJ Radiology Procedure 12/12/17 20:00 Lactulose (Cephulac) 10 gm THREE TIMES A DAY ORAL 12/13/17 13:00 01/12/18 12:59 12/14/17 13:41 Magnesium Oxide (Mag-Ox 400mg) 400 mg DAILY ORAL 12/13/17 09:00 01/12/18 08:59 12/14/17 08:48 Mineral Oil (Mineral Oil) 30 ml DAILYPRN PRN ORAL Constipation 12/14/17 10:36 01/13/18 10:35 12/14/17 13:40 Morphine Sulfate (Morphine Sulfate) 4 mg Q4H PRN IVP For Pain 12/12/17 23:30 12/19/17 23:29 Morphine Sulfate (Morphine Sulfate) 6 mg Q4H PRN IVP Severe Pain (Pain Scale 7-10) 12/12/17 23:30 12/19/17 23:29 12/14/17 13:46 Ondansetron HCl (Zofran) 4 mg Q4H PRN IVP Nausea & Vomiting 12/12/17 23:30 01/11/18 23:29 12/14/17 08:48 Polyethylene Glycol (Miralax) 17 gm BEDTIME ORAL 12/13/17 21:00 01/12/18 20:59 12/13/17 20:39 Quetiapine Fumarate (SEROquel) 50 mg BEDTIME ORAL 12/13/17 00:00 01/12/18 20:59 12/13/17 20:39 Sitagliptin Phosphate (Januvia) 100 mg DAILY ORAL 12/13/17 09:00 01/12/18 08:59 12/14/17 08:48 Zolpidem Tartrate (Ambien) 10 mg BEDTIME PRN ORAL Insomnia 12/13/17 21:00 12/20/17 20:59 12/13/17 21:15 Allergies: Coded Allergies: No Known Allergies (Unverified , 09/22/14) ROS Limited/Unobtainable: No Constitutional: Reports: no symptoms HEENT: Reports: no symptoms Cardiovascular: Reports: no symptoms Respiratory: Reports: no symptoms Gastrointestinal/Abdominal: Reports: abdominal pain Genitourinary: Reports: no symptoms Neurologic/Psychiatric: Reports: no symptoms Subjective 57 YO F admitted with epigastric pain. Await endoscopy and esophageal ultrasound. Objective Last Vital Signs Date Time Temp Pulse Resp B/P (MAP) Pulse Ox O2 Delivery O2 Flow Rate FiO2 12/14/17 13:46 98.3 12/14/17 08:48 83 102/70 12/14/17 08:00 19 98 12/13/17 21:00 Room Air General Appearance: WD/WN, no apparent distress, alert EENT: PERRL/EOMI, normal ENT inspection Neck: non-tender, normal alignment, supple, normal inspection Cardiovascular: normal peripheral pulses, normal rate, regular rhythm, no gallop/murmur, no JVD Respiratory/Chest: chest wall non-tender, lungs clear, normal breath sounds, no respiratory distress, no accessory muscle use Abdomen: no organomegaly, no mass, decreased bowel sounds, guarding, tender 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, no motor/sensory deficits Skin: normal pigmentation, warm/dry Laboratory Tests Test 12/13/17 15:37 12/14/17 07:00 Stool Occult Blood Negative (NEGATIVE) White Blood Count 4.8 K/UL (4.8-10.8) Red Blood Count 4.83 M/UL (4.20-5.40) Hemoglobin 12.9 G/DL (12.0-16.0) Hematocrit 40.5 % (37.0-47.0) Mean Corpuscular Volume 84 FL (80-99) Mean Corpuscular Hemoglobin 26.8 PG (27.0-31.0) L Mean Corpuscular Hemoglobin Concent 32.0 G/DL (32.0-36.0) Red Cell Distribution Width 12.6 % (11.6-14.8) Platelet Count 244 K/UL (150-450) Mean Platelet Volume 7.8 FL (6.5-10.1) Neutrophils (%) (Auto) 49.4 % (45.0-75.0) Lymphocytes (%) (Auto) 38.3 % (20.0-45.0) Monocytes (%) (Auto) 6.3 % (1.0-10.0) Eosinophils (%) (Auto) 4.5 % (0.0-3.0) H Basophils (%) (Auto) 1.5 % (0.0-2.0) Sodium Level 141 MMOL/L (136-145) Potassium Level 4.0 MMOL/L (3.5-5.1) Chloride Level 105 MMOL/L (98-107) Carbon Dioxide Level 29 MMOL/L (21-32) Anion Gap 7 mmol/L (5-15) Blood Urea Nitrogen 16 mg/dL (7-18) Creatinine 0.8 MG/DL (0.55-1.30) Estimat Glomerular Filtration Rate > 60 mL/min (>60) Glucose Level 112 MG/DL (74-106) H Calcium Level 9.3 MG/DL (8.5-10.1) Total Bilirubin 0.3 MG/DL (0.2-1.0) Aspartate Amino Transf (AST/SGOT) 11 U/L (15-37) L Alanine Aminotransferase (ALT/SGPT) 19 U/L (12-78) Alkaline Phosphatase 81 U/L (46-116) Total Protein 7.4 G/DL (6.4-8.2) Albumin 3.6 G/DL (3.4-5.0) Globulin 3.8 g/dL Albumin/Globulin Ratio 0.9 (1.0-2.7) L Carcinoembryonic Antigen Pending CA 19-9 Antigen Pending Intake and Output 12/13/17 12/14/17 19:00 07:00 Intake Total 1040 ml 240 ml Balance 1040 ml 240 ml Intake Oral 1040 ml 240 ml # Voids 4 2 # Bowel Movements 1 Assessment/Plan Problem List: (1) Bipolar 1 disorder, depressed (2) Intra-abdominal lymphadenopathy Assessment & Plan: Await esophageal ultrasound (3) Epigastric abdominal pain Assessment & Plan: See GI note. Await esophago-gastro duodenoscopy (4) Diabetes Assessment & Plan: Continue januvia and novolog (5) HTN (hypertension) Assessment & Plan: Continue norvasc Status: not improved Bonilla Watt MD Dec 14, 2017 13:56
--- NOTE | 2017-12-14 14:22 | Cardiology Report ---
APPROVED REPORT EKG Measurement Heart [id number] [id number] Sinus bradycardia Cannot rule out Anterior infarct, age undetermined Abnormal ECG
[2017-12-14 16:00] VITALS: BP 127/73
[2017-12-14] MEDS: Miralax 17gm pkt ORAL SCH (20:18)
[2017-12-14 20:25] VITALS: BP 121/73
[2017-12-14] MEDS: Zolpidem 5mg tab ORAL PRN (21:09)
[2017-12-15] VITALS (10 sets, daily range): BP systolic 100–122; BP diastolic 53–76
[2017-12-15] MEDS: Morphine Sulfate 4mg/ml Inj (IV USE ONLY) IVP PRN ×4 (03:33→20:37)
[2017-12-15] MEDS: Heparin 5000 units/ml inj SUBQ SCH ×3 (05:30→20:40)
[2017-12-15] MEDS: NovoLOG Insulin Flexpen SUBQ SCH ×4 (05:47→20:25)
[2017-12-15 06:20] LABS: BASOPHILS % (AUTO) 1.4 % (0.0-2.0); EOSINOPHILS % (AUTO) 3.5 % (0.0-3.0); HEMATOCRIT 39.8 % (37.0-47.0); HEMOGLOBIN 13.1 G/DL (12.0-16.0); LYMPHOCYTES % (AUTO) 36.7 % (20.0-45.0); MEAN CORPUSCULAR VOLUME 84 FL (80-99); MONOCYTES % (AUTO) 7.9 % (1.0-10.0); NEUTROPHILS % (AUTO) 50.6 % (45.0-75.0); PLATELET COUNT 238 K/UL (150-450); RED BLOOD COUNT 4.74 M/UL (4.20-5.40); RED CELL DISTRIBUTION WIDTH 12.6 % (11.6-14.8); WHITE BLOOD COUNT 5.3 K/UL (4.8-10.8)
[2017-12-15 06:22] LABS: ANION GAP 2 mmol/L (5-15); BLOOD UREA NITROGEN 13 mg/dL (7-18); CALCIUM 9.3 MG/DL (8.5-10.1); CARBON DIOXIDE 32 MMOL/L (21-32); CHLORIDE 103 MMOL/L (98-107); POTASSIUM 4.8 MMOL/L (3.5-5.1); SODIUM 137 MMOL/L (136-145)
[2017-12-15] MEDS: Magnesium Oxide 400mg tab ORAL SCH (09:00)
[2017-12-15] MEDS: Lactulose 10gm/15ml UDC ORAL SCH ×3 (09:00→17:50)
[2017-12-15] MEDS: Ascorbic Acid 500mg tab ORAL SCH (09:00)
[2017-12-15] MEDS: Docusate 100mg cap ORAL SCH ×2 (09:00→17:50)
--- NOTE | 2017-12-15 09:57 | Pre-Procedure Note/Attestation ---
Pre-Procedure Note/Attestation Complete Prior to Procedure Planned Procedure: not applicable Procedure Narrative: egd/eus Indications for Procedure Pre-Operative Diagnosis: abd pain and wt loss Attestation I attest that I discussed the nature of the procedure; its benefits; risks and complications; and alternatives (and the risks and benefits of such alternatives ), prior to the procedure, with the patient (or the patient's legal telephone sales representative). I attest that, if there was a reasonable possibility of needing a blood transfusion, the patient (or the patient's legal telephone sales representative) was given the [facility] standardized written summary, pursuant to the Abdullahi Ferris Blood Safety Act ([place] Health and Safety Code # 1645, as amended). I attest that I re-evaluated the patient just prior to the surgery and that there has been no change in the patient's H&P, except as documented below: Woodrow Mcintosh MD Dec 15, 2017 09:57
[2017-12-15] MEDS ORDERED: Heplock Flush 100 units/ml 3 ml syr ONE (11:10)
--- NOTE | 2017-12-15 11:27 | Internal Med Progress Note ---
Subjective Date of Service: Dec 15, 2017 Physician Name Bonilla Watt Attending Physician Mike Griffin MD Current Medications Medications (Trade) Dose Ordered Sig/Elizabeth Route PRN Reason Start Time Stop Time Status Last Admin Dose Admin Amlodipine Besylate (Norvasc) 5 mg DAILY ORAL 12/13/17 09:00 01/12/18 08:59 12/14/17 08:48 Ascorbic Acid (Vitamin C) 1,000 mg DAILY ORAL 12/13/17 09:00 01/12/18 08:59 12/14/17 08:48 Carisoprodol (Soma) 350 mg BID PRN ORAL Muscle Spasm 12/13/17 03:30 01/12/18 03:29 12/14/17 11:30 Dextrose (Dextrose 50%) 25 ml STAT PRN IV Hypoglycemia 12/12/17 23:30 01/11/18 23:29 Dextrose (Dextrose 50%) 50 ml STAT PRN IV Hypoglycemia 12/12/17 23:30 01/11/18 23:29 Docusate Sodium (Colace) 100 mg TWICE A DAY ORAL 12/13/17 18:00 01/12/18 17:59 12/14/17 17:51 Heparin Sodium (Porcine) (Heparin 5000 units/ml) 5,000 units EVERY 8 HOURS SUBQ 12/12/17 23:45 01/11/18 23:44 12/14/17 13:45 Hydrocortisone (Anusol HC) 1 applic TWICE A DAY RECTAL 12/14/17 20:45 01/13/18 20:44 12/14/17 21:33 Insulin Aspart (NovoLOG) BEFORE MEALS AND HS SUBQ 12/13/17 06:30 01/12/18 06:29 12/14/17 20:22 Iopamidol (Isovue-300 100ml) 100 ml NOW PRN INJ Radiology Procedure 12/12/17 20:00 Lactulose (Cephulac) 10 gm THREE TIMES A DAY ORAL 12/13/17 13:00 01/12/18 12:59 12/14/17 17:50 Magnesium Oxide (Mag-Ox 400mg) 400 mg DAILY ORAL 12/13/17 09:00 01/12/18 08:59 12/14/17 08:48 Mineral Oil (Mineral Oil) 30 ml DAILYPRN PRN ORAL Constipation 12/14/17 10:36 01/13/18 10:35 8/5/18 13:40 Morphine Sulfate (Morphine Sulfate) 4 mg Q4H PRN IVP For Pain 12/12/17 23:30 12/19/17 23:29 Morphine Sulfate (Morphine Sulfate) 6 mg Q4H PRN IVP Severe Pain (Pain Scale 7-10) 12/12/17 23:30 12/19/17 23:29 12/15/17 10:38 Ondansetron HCl (Zofran) 4 mg Q4H PRN IVP Nausea & Vomiting 12/12/17 23:30 01/11/18 23:29 12/15/17 02:26 Polyethylene Glycol (Miralax) 17 gm BEDTIME ORAL 12/13/17 21:00 01/12/18 20:59 12/14/17 20:18 Quetiapine Fumarate (SEROquel) 50 mg BEDTIME ORAL 12/13/17 00:00 01/12/18 20:59 12/14/17 20:18 Sitagliptin Phosphate (Januvia) 100 mg DAILY ORAL 12/13/17 09:00 01/12/18 08:59 12/15/17 08:48 Zolpidem Tartrate (Ambien) 10 mg BEDTIME PRN ORAL Insomnia 12/13/17 21:00 12/20/17 20:59 12/14/17 21:09 Allergies: Coded Allergies: No Known Allergies (Unverified , 09/22/14) ROS Limited/Unobtainable: No Constitutional: Reports: no symptoms HEENT: Reports: no symptoms Cardiovascular: Reports: no symptoms Respiratory: Reports: no symptoms Gastrointestinal/Abdominal: Reports: abdominal pain Genitourinary: Reports: no symptoms Neurologic/Psychiatric: Reports: no symptoms Subjective 57 YO F admitted with epigastric pain. Await endoscopy and esophageal ultrasound today 12/15/17. Objective Last Vital Signs Date Time Temp Pulse Resp B/P (MAP) Pulse Ox O2 Delivery O2 Flow Rate FiO2 12/15/17 09:00 88 109/63 12/15/17 09:00 Room Air 12/15/17 08:00 99.7 20 95 99.7 Laboratory Tests Test 12/15/17 05:10 White Blood Count 5.3 K/UL (4.8-10.8) Red Blood Count 4.74 M/UL (4.20-5.40) Hemoglobin 13.1 G/DL (12.0-16.0) Hematocrit 39.8 % (37.0-47.0) Mean Corpuscular Volume 84 FL (80-99) Mean Corpuscular Hemoglobin 27.7 PG (27.0-31.0) Mean Corpuscular Hemoglobin Concent 33.0 G/DL (32.0-36.0) Red Cell Distribution Width 12.6 % (11.6-14.8) Platelet Count 238 K/UL (150-450) Mean Platelet Volume 7.1 FL (6.5-10.1) Neutrophils (%) (Auto) 50.6 % (45.0-75.0) Lymphocytes (%) (Auto) 36.7 % (20.0-45.0) Monocytes (%) (Auto) 7.9 % (1.0-10.0) Eosinophils (%) (Auto) 3.5 % (0.0-3.0) H Basophils (%) (Auto) 1.4 % (0.0-2.0) Sodium Level 137 MMOL/L (136-145) Potassium Level 4.8 MMOL/L (3.5-5.1) Chloride Level 103 MMOL/L (98-107) Carbon Dioxide Level 32 MMOL/L (21-32) Anion Gap 2 mmol/L (5-15) L Blood Urea Nitrogen 13 mg/dL (7-18) Creatinine 1.0 MG/DL (0.55-1.30) Estimat Glomerular Filtration Rate > 60 mL/min (>60) Glucose Level 107 MG/DL (74-106) H Calcium Level 9.3 MG/DL (8.5-10.1) Intake and Output 12/14/17 12/15/17 19:00 07:00 Intake Total 540 ml Balance 540 ml Intake Oral 540 ml # Voids 6 2 Objective General Appearance: WD/WN, no apparent distress, alert EENT: PERRL/EOMI, normal ENT inspection Neck: non-tender, normal alignment, supple, normal inspection Cardiovascular: normal peripheral pulses, normal rate, regular rhythm, no gallop/murmur, no JVD Respiratory/Chest: chest wall non-tender, lungs clear, normal breath sounds, no respiratory distress, no accessory muscle use Abdomen: no organomegaly, no mass, decreased bowel sounds, guarding, tender 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 Await esophago-gastro duodenoscopy today . (4) Diabetes Assessment & Plan: Continue januvia and novolog (5) HTN (hypertension) Assessment & Plan: Continue norvasc Status: not improved Bonilla Watt MD Dec 15, 2017 11:27
[2017-12-15] MEDS ORDERED: LR 1000ml ONE (11:28)
[2017-12-15] MEDS ORDERED: Propofol 200mg/20ml IV ONE (11:28)
[2017-12-15] MEDS ORDERED: Midazolam 2mg/2ml Inj ONE (11:28)
[2017-12-15] MEDS ORDERED: fentaNYL 100 mcg/2 mL IV ONE (11:28)
[2017-12-15] MEDS ORDERED: NS 500ML IVPB ONE (11:30)
--- NOTE | 2017-12-15 11:49 | Anethesia Preoperative Eval ---
Anesthesia Pre-op PMH/ROS General Date of Evaluation: Dec 15, 2017 Time of Evaluation: 11:41 Anesthesiologist: Declan ASA Score: ASA 3 Mallampati Score Class I : Soft palate, uvula, fauces, pillars visible Class II: Soft palate, uvula, fauces visible Class III: Soft palate, base of uvula visible Class IV: Only hard plate visible Mallampati Classification: Class II Surgeon: Arnaldo Diagnosis: Abdominal pain Surgical Procedure: EGD EUS Anesthesia History: none Allergies: Coded Allergies: No Known Allergies (Unverified , 09/22/14) Past Medical History Cardiovascular: Reports: HTN; Denies: CAD, LA, valve dz, arrhythmia, other Pulmonary: Denies: asthma, COPD, SALLY, other Gastrointestinal/Genitourinary: Denies: GERD, CRI, ESRD, other Neurologic/Psychiatric: Reports: depression/anxiety Endocrine: Reports: DM; Denies: hypothyroidism, steroids, other HEENT: Denies: cataract (L), cataract (R), glaucoma, ANIAK (L), ANIAK (R), other Hematology/Immune: Denies: anemia, DVT, bleeding disorder, other Musculoskeletal/Integumentary: Denies: OA, RA, DJD, DDD, edema, other Other: obesity PMH Narrative: recurrent abdominal pain PSxH Narrative: See H&P Anesthesia Pre-op Phys. Exam Physician Exam Last Vital Signs Date Time Temp Pulse Resp B/P (MAP) Pulse Ox O2 Delivery O2 Flow Rate FiO2 12/15/17 09:00 88 109/63 12/15/17 09:00 Room Air 12/15/17 08:00 99.7 20 95 99.7 Constitutional: NAD Neurologic: CN 2-12 intact Cardiovascular: RRR, no M/R/G Respiratory: CTA Gastrointestinal: S/NT/ND Airway Exam Mallampati Score: Class II MO: full Neck: flexible ROM: limited Teeth: missing Dentures: no upper, no lower Anesthesia Pre-op A/P Labs Hematology Test 12/15/17 05:10 White Blood Count 5.3 K/UL (4.8-10.8) Red Blood Count 4.74 M/UL (4.20-5.40) Hemoglobin 13.1 G/DL (12.0-16.0) Hematocrit 39.8 % (37.0-47.0) Mean Corpuscular Volume 84 FL (80-99) Mean Corpuscular Hemoglobin 27.7 PG (27.0-31.0) Mean Corpuscular Hemoglobin Concent 33.0 G/DL (32.0-36.0) Red Cell Distribution Width 12.6 % (11.6-14.8) Platelet Count 238 K/UL (150-450) Mean Platelet Volume 7.1 FL (6.5-10.1) Neutrophils (%) (Auto) 50.6 % (45.0-75.0) Lymphocytes (%) (Auto) 36.7 % (20.0-45.0) Monocytes (%) (Auto) 7.9 % (1.0-10.0) Eosinophils (%) (Auto) 3.5 % (0.0-3.0) H Basophils (%) (Auto) 1.4 % (0.0-2.0) Chemistry Test 12/15/17 05:10 Sodium Level 137 MMOL/L (136-145) Potassium Level 4.8 MMOL/L (3.5-5.1) Chloride Level 103 MMOL/L (98-107) Carbon Dioxide Level 32 MMOL/L (21-32) Anion Gap 2 mmol/L (5-15) L Blood Urea Nitrogen 13 mg/dL (7-18) Creatinine 1.0 MG/DL (0.55-1.30) Estimat Glomerular Filtration Rate > 60 mL/min (>60) Glucose Level 107 MG/DL (74-106) H Calcium Level 9.3 MG/DL (8.5-10.1) Risk Assessment & Plan Assessment: ASA 3 Plan: MAC Status Change Before Surgery: No Pre-Antibiotics Drug: none Den Manriquez MD Dec 15, 2017 11:48
--- NOTE | 2017-12-15 12:05 | Endoscopy Procedure Note ---
Endoscopy Procedure Note General Indication for Procedure: abd pain and wt loss Procedures Performed: EGD, other - EUS Operative Findings/Diagnosis: gastritis Specimen: yes Pt Tolerated Procedure Well: Yes Estimated Blood Loss: none Anesthesia Anesthesiologist: jason Anesthesia: MAC Inserted Devices Implant(s) used?: No GI Core Measures 50 yrs or older w/o bx or poly: Not Applicable 10yrs. F/U not recommended: Not Applicable Woodrow Mcintosh MD Dec 15, 2017 12:05
--- NOTE | 2017-12-15 12:05 | Immediate Post-Op Evaluation ---
Immediate Post-Op Evalulation Immediate Post-Op Evalulation Procedure: EGD / EUS Date of Evaluation: Dec 15, 2017 Time of Evaluation: 12:04 IV Fluids: 200 Blood Products: none Estimated Blood Loss: none Urinary Output: none Blood Pressure Systolic: 196 Blood Pressure Diastolic: 54 Pulse Rate: 84 Respiratory Rate: 20 O2 Sat by Pulse Oximetry: 99 Temperature (Fahrenheit): 97.6 Pain Score (1-10): 1 Nausea: No Vomiting: No Complications none Patient Status: reacts, patent, none Hydration Status: adequate Den Manriquez MD Dec 15, 2017 12:05
--- NOTE | 2017-12-15 13:11 | Consultation ---
History of Present Illness General Date patient seen: Dec 15, 2017 Chief Complaint: Abdominal Pain Present Illness HPI 57-year-old female with hx of bipolar d/o, who presents with a chief complaint of abdominal pain. The pt is calm and stated that she has anxiety and insomnia. the pt stated that the seroquel helps her. Allergies: Coded Allergies: No Known Allergies (Unverified , 09/22/14) Medication History Scheduled Amlodipine Besylate* (Amlodipine Besylate*), 10 MG ORAL DAILY, (Reported) Ascorbic Acid* (Vitamin C*), 1,000 MG ORAL DAILY, (Reported) Calcium Carbonate (Calcium), 500 MG PO DAILY, (Reported) Colostrum, Bovine (Colostrum), 500 MG PO DAILY, (Reported) Magnesium Oxide (Magnesium), 250 MG PO DAILY, (Reported) Multivitamins* (Multivitamins*), 1 TAB ORAL DAILY, (Reported) Oregano Oil (Oil Of Oregano), 1,500 MG PO DAILY, (Reported) Quetiapine Fumarate (Seroquel), 50 MG ORAL BEDTIME, (Reported) Sitagliptin (Januvia), 100 MG ORAL DAILY, (Reported) Tryptophan (L-Tryptophan), 500 MG PO DAILY, (Reported) Vitamin D (Vitamin D3), 40,000 UNITS ORAL DAILY, (Reported) Zolpidem Tartrate* (Ambien*), 10 MG ORAL BEDTIME, (Reported) Scheduled PRN Carisoprodol* (Soma*), 350 MG PO BID PRN for Muscle Spasm, (Reported) Dronabinol* (Marinol*), 2.5 MG ORAL DAILY PRN for Nausea & Vomiting, (Reported) Levocetirizine Dihydrochloride (Xyzal), 5 MG ORAL DAILY PRN for Itching, ( Reported) Melatonin (Melatonin), 3 MG ORAL BEDTIME PRN for Insomnia, (Reported) Tramadol Hcl* (Ultram*), 50 MG ORAL THREE TIMES A DAY PRN for For Pain, ( Reported) Discontinued Medications Diclofenac Sod* (Voltaren*), 75 MG ORAL BID, (Reported) Discontinued Reason: Pt stopped taking med Divalproex Sodium (Depakote), 500 MG PO TID, (Reported) Discontinued Reason: Pt stopped taking med Gabapentin* (Neurontin*), 300 MG ORAL Q8HR, (Reported) Discontinued Reason: Pt stopped taking med Hydrocodone Bit/Acetaminophen 7.5-325* ([place] 7.5-325*), 1 TAB ORAL Q4H PRN for For Pain, (Reported) Discontinued Reason: Pt stopped taking med Losartan Potassium* (Losartan Potassium*), 100 MG ORAL DAILY, (Reported) Discontinued Reason: Pt stopped taking med Metformin Hcl* (Metformin Hcl*), 1,000 MG ORAL BID, (Reported) Discontinued Reason: Pt stopped taking med OXYCODONE HCl* (Roxicodone*), 15 MG ORAL Q6H PRN for For Pain, (Reported) Discontinued Reason: Pt stopped taking med Omeprazole (Omeprazole), 40 MG ORAL DAILY, (Reported) Discontinued Reason: Pt stopped taking med Oxybutynin Chloride (Oxybutynin Chloride), 5 MG ORAL QHS, (Reported) Discontinued Reason: Pt stopped taking med Paroxetine Hcl* (Paxil*), 20 MG ORAL DAILY, (Reported) Discontinued Reason: Pt stopped taking med Repaglinide (Prandin), 1 MG ORAL THREE TIMES A DAY, (Reported) Discontinued Reason: Pt stopped taking med Patient History Limited by: medical condition History Provided By: Patient, Medical Record, PMD Healthcare decision maker Resuscitation status Full Code Advanced Directive on File No Past Medical/Surgical History Past Medical/Surgical History: (1) Obesity (2) Diarrhea (3) Weight loss (4) Diabetes (5) HTN (hypertension) (6) Bipolar 1 disorder (7) Abdominal pain (8) Constipation (9) Diverticulosis (10) Epigastric abdominal pain (11) Intra-abdominal lymphadenopathy (12) Bipolar 1 disorder, depressed Review of Systems Psychiatric: Reports: prior hx, anxiety, depressed feelings, emotional problems Physical Exam General Appearance: no apparent distress, alert Neurologic: oriented x 3, responsive, depressed affect Last 24 Hour Vital Signs Date Time Temp Pulse Resp B/P (MAP) Pulse Ox O2 Delivery O2 Flow Rate FiO2 12/15/17 12:30 98.7 61 15 111/57 97 Room Air 98.7 12/15/17 12:20 88 18 104/53 98 Room Air 12/15/17 12:07 78 16 101/53 98 Nasal Cannula 3 12/15/17 12:05 207.7 84 20 99 12/15/17 12:02 77 19 100/55 98 Nasal Cannula 3 12/15/17 11:57 98.5 72 20 116/76 98 Nasal Cannula 3 98.5 12/15/17 09:00 88 109/63 12/15/17 09:00 Room Air 12/15/17 08:00 99.7 88 20 109/63 (78) 95 99.7 12/15/17 04:03 98.6 12/15/17 03:40 99.3 77 18 109/63 (78) 95 99.3 12/15/17 03:33 98.6 12/15/17 00:25 98.6 68 18 115/69 (84) 95 98.6 12/14/17 22:06 99.2 12/14/17 21:00 Room Air 12/14/17 20:25 99.2 71 19 121/73 (89) 95 99.2 12/14/17 17:51 98.2 12/14/17 16:00 98.2 78 20 127/73 (91) 99 98.2 12/14/17 13:46 98.3 Intake and Output 12/14/17 12/15/17 19:00 07:00 Intake Total 540 ml Balance 540 ml Intake Oral 540 ml # Voids 6 2 Laboratory Tests Test 12/15/17 05:10 White Blood Count 5.3 K/UL (4.8-10.8) Red Blood Count 4.74 M/UL (4.20-5.40) Hemoglobin 13.1 G/DL (12.0-16.0) Hematocrit 39.8 % (37.0-47.0) Mean Corpuscular Volume 84 FL (80-99) Mean Corpuscular Hemoglobin 27.7 PG (27.0-31.0) Mean Corpuscular Hemoglobin Concent 33.0 G/DL (32.0-36.0) Red Cell Distribution Width 12.6 % (11.6-14.8) Platelet Count 238 K/UL (150-450) Mean Platelet Volume 7.1 FL (6.5-10.1) Neutrophils (%) (Auto) 50.6 % (45.0-75.0) Lymphocytes (%) (Auto) 36.7 % (20.0-45.0) Monocytes (%) (Auto) 7.9 % (1.0-10.0) Eosinophils (%) (Auto) 3.5 % (0.0-3.0) H Basophils (%) (Auto) 1.4 % (0.0-2.0) Sodium Level 137 MMOL/L (136-145) Potassium Level 4.8 MMOL/L (3.5-5.1) Chloride Level 103 MMOL/L (98-107) Carbon Dioxide Level 32 MMOL/L (21-32) Anion Gap 2 mmol/L (5-15) L Blood Urea Nitrogen 13 mg/dL (7-18) Creatinine 1.0 MG/DL (0.55-1.30) Estimat Glomerular Filtration Rate > 60 mL/min (>60) Glucose Level 107 MG/DL (74-106) H Calcium Level 9.3 MG/DL (8.5-10.1) Height (Feet): 5 Height (Inches): 8.00 Weight (Pounds): 194 Medications Current Medications Medications (Trade) Dose Ordered Sig/Elizabeth Route PRN Reason Start Time Stop Time Status Last Admin Dose Admin Amlodipine Besylate (Norvasc) 5 mg DAILY ORAL 12/13/17 09:00 01/12/18 08:59 12/14/17 08:48 Ascorbic Acid (Vitamin C) 1,000 mg DAILY ORAL 12/13/17 09:00 01/12/18 08:59 12/14/17 08:48 Carisoprodol (Soma) 350 mg BID PRN ORAL Muscle Spasm 12/13/17 03:30 01/12/18 03:29 12/14/17 11:30 Dextrose (Dextrose 50%) 25 ml STAT PRN IV Hypoglycemia 12/12/17 23:30 01/11/18 23:29 Dextrose (Dextrose 50%) 50 ml STAT PRN IV Hypoglycemia 12/12/17 23:30 01/11/18 23:29 Docusate Sodium (Colace) 100 mg TWICE A DAY ORAL 12/13/17 18:00 01/12/18 17:59 12/14/17 17:51 Heparin Sodium (Porcine) (Heparin 5000 units/ml) 5,000 units EVERY 8 HOURS SUBQ 12/12/17 23:45 01/11/18 23:44 12/14/17 13:45 Hydrocortisone (Anusol HC) 1 applic TWICE A DAY RECTAL 12/14/17 20:45 01/13/18 20:44 12/14/17 21:33 Insulin Aspart (NovoLOG) BEFORE MEALS AND HS SUBQ 12/13/17 06:30 01/12/18 06:29 12/14/17 20:22 Iopamidol (Isovue-300 100ml) 100 ml NOW PRN INJ Radiology Procedure 12/12/17 20:00 Lactulose (Cephulac) 10 gm THREE TIMES A DAY ORAL 12/13/17 13:00 01/12/18 12:59 12/14/17 17:50 Magnesium Oxide (Mag-Ox 400mg) 400 mg DAILY ORAL 12/13/17 09:00 01/12/18 08:59 12/14/17 08:48 Mineral Oil (Mineral Oil) 30 ml DAILYPRN PRN ORAL Constipation 12/14/17 10:36 01/13/18 10:35 12/14/17 13:40 Morphine Sulfate (Morphine Sulfate) 4 mg Q4H PRN IVP For Pain 12/12/17 23:30 12/19/17 23:29 Morphine Sulfate (Morphine Sulfate) 6 mg Q4H PRN IVP Severe Pain (Pain Scale 7-10) 12/12/17 23:30 12/19/17 23:29 12/15/17 10:38 Ondansetron HCl (Zofran) 4 mg Q4H PRN IVP Nausea & Vomiting 12/12/17 23:30 01/11/18 23:29 12/15/17 02:26 Polyethylene Glycol (Miralax) 17 gm BEDTIME ORAL 12/13/17 21:00 01/12/18 20:59 12/14/17 20:18 Quetiapine Fumarate (SEROquel) 50 mg BEDTIME ORAL 12/13/17 00:00 01/12/18 20:59 12/14/17 20:18 Sitagliptin Phosphate (Januvia) 100 mg DAILY ORAL 12/13/17 09:00 01/12/18 08:59 12/15/17 08:48 Zolpidem Tartrate (Ambien) 10 mg BEDTIME PRN ORAL Insomnia 12/13/17 21:00 12/20/17 20:59 12/14/17 21:09 Assessment/Plan Status: stable Assessment/Plan Bipolar d/o Seroquel 50mg qhs provided main/Christina Faith MD Dec 15, 2017 13:11
--- NOTE | 2017-12-15 17:45 | Procedure Note ---
DATE OF PROCEDURE: 12/15/2017 SURGEON: Woodrow Mcintosh M.D. PROCEDURE: Upper endoscopy with biopsy and endoscopic ultrasound. ANESTHESIA: Per Dr. Manriquez. INSTRUMENT: Olympus adult flexible upper endoscope and EUS scope. INDICATION: Abdominal pain, weight loss, and peripancreatic lymph node seen on the MRI. The procedure, risks, benefits, and possible consequences, including hemorrhage, aspiration, perforation and infection, and alternative treatments, were explained to the patient/legal guardian by Dr. Woodrow Mcintosh and the patient/legal guardian understood and accepted these risks. DESCRIPTION OF PROCEDURE: After informed consent was obtained and the patient was adequately sedated, Olympus upper endoscope was advanced from mouth into second portion of the duodenum and retroflexion was performed in the stomach. The patient had evidence of diffuse gastritis. Random biopsy from antrum was obtained to rule out H. pylori infection. The rest of the upper endoscopic examination grossly within limits. At this time, the upper endoscope was retrieved and EUS scope was introduced. We started scanning at the GE junction. We saw the left adrenal gland without any obvious pathology. No peripancreatic lymph nodes or celiac axis lymphadenopathy was appreciated in this examination. Then, the scope was gently advanced to the stomach where the pancreatic body and tail were examined. The patient had about 4.5 mm cystic lesion arising from the main pancreatic duct suspicious for branch type IPMN. There was no evidence of any wall thickening or filling defect in the cyst, though it looks like a simple looking cyst, but seems to be arising from the main pancreatic duct. There was another cystic lesion roughly about 5 mm arising from pancreatic duct right above the ampulla, basically cystic dilatation of the pancreatic duct right above the ampulla to about 5 mm. Common bile duct was measured to be around 4.5 mm. No gallbladder wall thickening or stones in the gallbladder were seen. The patient tolerated the procedure very well without any complication. SUMMARY OF FINDINGS: 1. Gastritis, status post biopsy. 2. Two pancreatic cysts were seen, one 4.5 mm in the body and another one 5 mm in the head, suspicious coming off from the pancreatic duct both of them, so they are most probably side branch IPMN. RECOMMENDATIONS: Given the size of this cyst is very small, at this time, we will recommend observation, maybe imaging studies in a year or so. Meanwhile follow biopsies from the stomach and treat accordingly. I want to thank Dr. Leanne Holland for this kind referral. Woodrow Mcintosh M.D. DR: CRYSTAL JOB#: [id number] CC: Leanne Holland M.D.; Fax#: [phone]
[2017-12-15] MEDS: Miralax 17gm pkt ORAL SCH (20:35)
[2017-12-15] MEDS: Zolpidem 5mg tab ORAL PRN (20:40)
[2017-12-16] VITALS: BP 105/56
[2017-12-16 04:00] VITALS: BP 127/78
[2017-12-16] MEDS: NovoLOG Insulin Flexpen SUBQ SCH ×4 (06:10→20:54)
[2017-12-16] MEDS: Heparin 5000 units/ml inj SUBQ SCH ×3 (06:11→20:54)
[2017-12-16] MEDS: Morphine Sulfate 4mg/ml Inj (IV USE ONLY) IVP PRN ×4 (06:15→21:10)
[2017-12-16 06:24] LABS: BASOPHILS % (AUTO) 1.7 % (0.0-2.0); EOSINOPHILS % (AUTO) 5.2 % (0.0-3.0); HEMATOCRIT 40.3 % (37.0-47.0); HEMOGLOBIN 13.1 G/DL (12.0-16.0); LYMPHOCYTES % (AUTO) 34.7 % (20.0-45.0); MEAN CORPUSCULAR VOLUME 85 FL (80-99); MONOCYTES % (AUTO) 9.2 % (1.0-10.0); NEUTROPHILS % (AUTO) 49.2 % (45.0-75.0); PLATELET COUNT 223 K/UL (150-450); RED BLOOD COUNT 4.76 M/UL (4.20-5.40); RED CELL DISTRIBUTION WIDTH 12.7 % (11.6-14.8); WHITE BLOOD COUNT 4.9 K/UL (4.8-10.8)
[2017-12-16 07:05] LABS: ANION GAP 8 mmol/L (5-15); BLOOD UREA NITROGEN 12 mg/dL (7-18); CALCIUM 9.1 MG/DL (8.5-10.1); CARBON DIOXIDE 30 MMOL/L (21-32); CHLORIDE 102 MMOL/L (98-107); CREATININE 0.8 MG/DL (0.55-1.30); POTASSIUM 4.1 MMOL/L (3.5-5.1); SODIUM 139 MMOL/L (136-145)
[2017-12-16 08:00] VITALS: BP 96/63
[2017-12-16] MEDS: Magnesium Oxide 400mg tab ORAL SCH (08:47)
[2017-12-16] MEDS: Lactulose 10gm/15ml UDC ORAL SCH ×3 (08:47→18:52)
[2017-12-16] MEDS: Docusate 100mg cap ORAL SCH ×2 (08:47→18:52)
[2017-12-16] MEDS: Ascorbic Acid 500mg tab ORAL SCH (08:47)
--- NOTE | 2017-12-16 09:11 | 48 Hour Post Anesthesia Eval ---
Post Anesthesia Evaluation Procedure: EGD / EUS Date of Evaluation: Dec 16, 2017 Time of Evaluation: 09:09 Blood Pressure Systolic: 128 0: 68 Pulse Rate: 72 Respiratory Rate: 20 Temperature (Fahrenheit): 97.5 O2 Sat by Pulse Oximetry: 98 Airway: patent Nausea: No Vomiting: No Pain Intensity: 2 Hydration Status: adequate Cardiopulmonary Status: stable Mental Status/LOC: patient returned to baseline Follow-up Care/Observations: n/a Post-Anesthesia Complications: none Follow-up care needed: N/A Den Manriquez MD Dec 16, 2017 09:11
[2017-12-16 12:00] VITALS: BP 121/76
--- NOTE | 2017-12-16 13:25 | GI Progress Note ---
Assessment/Plan Problems: (1) Pancreatic cyst ICD Codes: K86.2 - Cyst of pancreas SNOMED: 63007939 (2) Obesity ICD Codes: E66.9 - Obesity SNOMED: 543830195 (3) Weight loss ICD Codes: R63.4 - Weight loss SNOMED: 021506522 (4) Diarrhea ICD Codes: R19.7 - Diarrhea SNOMED: 55083241 (5) Epigastric abdominal pain ICD Codes: R10.13 - Epigastric pain SNOMED: 54241736 (6) Constipation ICD Codes: K59.00 - Constipation, unspecified SNOMED: 00344319 (7) Abdominal pain ICD Codes: R10.9 - Abdominal pain SNOMED: 61098300 (8) Bipolar 1 disorder ICD Codes: F31.9 - Bipolar 1 disorder SNOMED: 618485311 Status: stable Status Narrative Discussed with Dr. Mcintosh. Assessment/Plan EUS SUMMARY OF FINDINGS: 1. Gastritis, status post biopsy. 2. Two pancreatic cysts were seen, one 4.5 mm in the body and another one 5 mm in the head, suspicious coming off from the pancreatic duct both of them, so they are most probably side branch IPMN. still has abdominal pain 7/10. cannot tolerate diet RECOMMENDATIONS: Given the size of this cyst is very small, at this time, we will recommend observation, repeat imaging studies in 1 year. Meanwhile follow biopsies from the stomach and treat accordingly. will schedule patient for colonoscopy tomorrow given severe abdominal pain and severe c/o constipation - CLD now, NPO @ MN. - hold all blood thinners. GI cocktail prn bowel regime pain mgmt ppi fu labs The patient was seen and examined at bedside and all new and available data was reviewed in the patients chart. I agree with the above findings, impression and plan. (Patient seen earlier today. Signature stamp does not reflect patient encounter time.). - Woodrow Mcintosh MD Subjective Gastrointestinal/Abdominal: Reports: no symptoms Objective Last 24 Hour Vital Signs Date Time Temp Pulse Resp B/P (MAP) Pulse Ox O2 Delivery O2 Flow Rate FiO2 12/16/17 12:00 98.2 86 18 121/76 (91) 98 98.2 12/16/17 09:11 207.5 72 20 98 12/16/17 09:00 Room Air 12/16/17 09:00 66 96/63 12/16/17 08:00 97.7 66 20 96/63 (74) 98 97.7 12/16/17 04:00 98.3 69 18 127/78 (94) 98 98.3 12/16/17 00:00 97.9 80 19 105/56 (72) 94 97.9 12/15/17 21:00 Room Air 12/15/17 20:00 98.9 63 19 121/74 (90) 98.9 12/15/17 19:22 98.9 12/15/17 16:00 98.9 79 18 122/74 (90) 98.9 Intake and Output 12/15/17 12/16/17 19:00 07:00 Intake Total 670 ml 340 ml Balance 670 ml 340 ml Intake Oral 420 ml 340 ml IV Total 250 ml # Voids 4 3 Laboratory Tests Test 12/16/17 05:20 White Blood Count 4.9 K/UL (4.8-10.8) Red Blood Count 4.76 M/UL (4.20-5.40) Hemoglobin 13.1 G/DL (12.0-16.0) Hematocrit 40.3 % (37.0-47.0) Mean Corpuscular Volume 85 FL (80-99) Mean Corpuscular Hemoglobin 27.5 PG (27.0-31.0) Mean Corpuscular Hemoglobin Concent 32.5 G/DL (32.0-36.0) Red Cell Distribution Width 12.7 % (11.6-14.8) Platelet Count 223 K/UL (150-450) Mean Platelet Volume 8.0 FL (6.5-10.1) Neutrophils (%) (Auto) 49.2 % (45.0-75.0) Lymphocytes (%) (Auto) 34.7 % (20.0-45.0) Monocytes (%) (Auto) 9.2 % (1.0-10.0) Eosinophils (%) (Auto) 5.2 % (0.0-3.0) H Basophils (%) (Auto) 1.7 % (0.0-2.0) Sodium Level 139 MMOL/L (136-145) Potassium Level 4.1 MMOL/L (3.5-5.1) Chloride Level 102 MMOL/L (98-107) Carbon Dioxide Level 30 MMOL/L (21-32) Anion Gap 8 mmol/L (5-15) Blood Urea Nitrogen 12 mg/dL (7-18) Creatinine 0.8 MG/DL (0.55-1.30) Estimat Glomerular Filtration Rate > 60 mL/min (>60) Glucose Level 117 MG/DL (74-106) H Calcium Level 9.1 MG/DL (8.5-10.1) Height (Feet): 5 Height (Inches): 8.00 Weight (Pounds): 194 General Appearance: WD/WN, no apparent distress, alert Cardiovascular: normal rate Respiratory/Chest: normal breath sounds, no respiratory distress Abdominal Exam: normal bowel sounds, non tender, soft Extremities: normal range of motion, non-tender Evelin Baldwin NP Dec 16, 2017 13:25
[2017-12-16] MEDS ORDERED: GI Cocktail 50ml ORAL PRN (13:45)
--- NOTE | 2017-12-16 15:52 | General Progress Note ---
Assessment/Plan Assessment/Plan Bipolar d/o Seroquel 50mg qhs provided ro/st Subjective Date patient seen: Dec 16, 2017 Neurologic/Psychiatric: Reports: anxiety Allergies: Coded Allergies: No Known Allergies (Unverified , 09/22/14) Subjective the pt is anxious was angry earlier when she was told about her cysts. Objective Last 24 Hour Vital Signs Date Time Temp Pulse Resp B/P (MAP) Pulse Ox O2 Delivery O2 Flow Rate FiO2 12/16/17 12:00 98.2 86 18 121/76 (91) 98 98.2 12/16/17 09:11 207.5 72 20 98 12/16/17 09:00 Room Air 12/16/17 09:00 66 96/63 12/16/17 08:00 97.7 66 20 96/63 (74) 98 97.7 12/16/17 04:00 98.3 69 18 127/78 (94) 98 98.3 12/16/17 00:00 97.9 80 19 105/56 (72) 94 97.9 12/15/17 21:00 Room Air 12/15/17 20:00 98.9 63 19 121/74 (90) 98.9 12/15/17 19:22 98.9 12/15/17 16:00 98.9 79 18 122/74 (90) 98.9 Intake and Output 12/15/17 12/16/17 19:00 07:00 Intake Total 670 ml 340 ml Balance 670 ml 340 ml Intake Oral 420 ml 340 ml IV Total 250 ml # Voids 4 3 Laboratory Tests 12/16/17 05:20: White Blood Count 4.9, Red Blood Count 4.76, Hemoglobin 13.1, Hematocrit 40.3, Mean Corpuscular Volume 85, Mean Corpuscular Hemoglobin 27.5, Mean Corpuscular Hemoglobin Concent 32.5, Red Cell Distribution Width 12.7, Platelet Count 223, Mean Platelet Volume 8.0, Neutrophils (%) (Auto) 49.2, Lymphocytes (%) (Auto) 34.7, Monocytes (%) (Auto) 9.2, Eosinophils (%) (Auto) 5.2H, Basophils (%) (Auto ) 1.7, Sodium Level 139, Potassium Level 4.1, Chloride Level 102, Carbon Dioxide Level 30, Anion Gap 8, Blood Urea Nitrogen 12, Creatinine 0.8, Estimat Glomerular Filtration Rate > 60, Glucose Level 117H, Calcium Level 9.1 Height (Feet): 5 Height (Inches): 8.00 Weight (Pounds): 194 General Appearance: no apparent distress, alert Neurologic: alert, oriented x 3, depressed affect Christina Hussein MD Dec 16, 2017 15:52
[2017-12-16 16:00] VITALS: BP 134/53
[2017-12-16] MEDS ORDERED: Bisacodyl EC 5mg tab ORAL SCH ×2 (16:00→16:45)
[2017-12-16] MEDS ORDERED: Nulytely 4L ORAL SCH (16:00)
--- NOTE | 2017-12-16 17:43 | Internal Med Progress Note ---
Subjective Date of Service: Dec 16, 2017 Physician Name Bonilla Watt Attending Physician Mike Griffin MD Current Medications Medications (Trade) Dose Ordered Sig/Elizabeth Route PRN Reason Start Time Stop Time Status Last Admin Dose Admin Acetaminophen (Tylenol) 650 mg Q4H PRN ORAL Mild Pain/Temp > 100.5 12/15/17 13:45 01/14/18 13:44 12/16/17 03:48 Amlodipine Besylate (Norvasc) 5 mg DAILY ORAL 12/13/17 09:00 01/12/18 08:59 12/14/17 08:48 Ascorbic Acid (Vitamin C) 1,000 mg DAILY ORAL 12/13/17 09:00 01/12/18 08:59 12/16/17 08:47 Carisoprodol (Soma) 350 mg BID PRN ORAL Muscle Spasm 12/13/17 03:30 01/12/18 03:29 12/15/17 18:23 Cetylpyridinium Chloride (Cepacol) 1 lozg Q2H PRN PASCALE throat pain 12/16/17 11:15 01/15/18 11:14 12/16/17 11:22 Dextrose (Dextrose 50%) 25 ml STAT PRN IV Hypoglycemia 12/12/17 23:30 01/11/18 23:29 Dextrose (Dextrose 50%) 50 ml STAT PRN IV Hypoglycemia 12/12/17 23:30 01/11/18 23:29 Diphenhydramine HCl (Benadryl) 25 mg Q4HR PRN IVP Itching 12/16/17 17:45 01/15/18 17:44 UNV Docusate Sodium (Colace) 100 mg TWICE A DAY ORAL 12/13/17 18:00 01/12/18 17:59 12/16/17 08:47 Heparin Sodium (Porcine) (Heparin 5000 units/ml) 5,000 units EVERY 8 HOURS SUBQ 12/12/17 23:45 01/11/18 23:44 12/16/17 06:11 Hydrocortisone (Anusol HC) 1 applic TWICE A DAY RECTAL 12/14/17 20:45 01/13/18 20:44 12/16/17 08:47 Insulin Aspart (NovoLOG) BEFORE MEALS AND HS SUBQ 12/13/17 06:30 01/12/18 06:29 12/16/17 17:31 Iopamidol (Isovue-300 100ml) 100 ml NOW PRN INJ Radiology Procedure 12/12/17 20:00 Lactulose (Cephulac) 10 gm THREE TIMES A DAY ORAL 12/13/17 13:00 01/12/18 12:59 12/16/17 08:47 Magnesium Oxide (Mag-Ox 400mg) 400 mg DAILY ORAL 12/13/17 09:00 01/12/18 08:59 12/16/17 08:47 Mineral Oil (Mineral Oil) 30 ml DAILYPRN PRN ORAL Constipation 12/14/17 10:36 01/13/18 10:35 12/14/17 13:40 Morphine Sulfate (Morphine Sulfate) 4 mg Q4H PRN IVP For Pain 12/12/17 23:30 12/19/17 23:29 Morphine Sulfate (Morphine Sulfate) 6 mg Q4H PRN IVP Severe Pain (Pain Scale 7-10) 12/12/17 23:30 12/19/17 23:29 12/16/17 16:57 Ondansetron HCl (Zofran) 4 mg Q4H PRN IVP Nausea & Vomiting 12/12/17 23:30 01/11/18 23:29 12/16/17 11:21 Polyethylene Glycol (Miralax) 17 gm BEDTIME ORAL 12/13/17 21:00 01/12/18 20:59 12/15/17 20:35 Quetiapine Fumarate (SEROquel) 50 mg BEDTIME ORAL 12/13/17 00:00 01/12/18 20:59 12/15/17 20:34 Sitagliptin Phosphate (Januvia) 100 mg DAILY ORAL 12/13/17 09:00 01/12/18 08:59 12/16/17 08:47 Sodium Phosphate (Fleet's Sodium Phosl Enema) 133 ml ONCE RECTAL 12/16/17 23:00 12/17/17 00:01 Sodium Phosphate (Fleet's Sodium Phosl Enema) 133 ml ONCE RECTAL 12/17/17 06:00 12/17/17 07:00 Zolpidem Tartrate (Ambien) 10 mg BEDTIME PRN ORAL Insomnia 12/13/17 21:00 12/20/17 20:59 12/15/17 20:40 Allergies: Coded Allergies: No Known Allergies (Unverified , 09/22/14) Subjective 57 YO F admitted with epigastric pain. S/P endoscopy and endoscopic ultrasound 12/15/17. Cover for Int jovita-Dr Griffin Objective Last Vital Signs Date Time Temp Pulse Resp B/P (MAP) Pulse Ox O2 Delivery O2 Flow Rate FiO2 12/16/17 12:00 98.2 86 18 121/76 (91) 98 98.2 12/16/17 09:00 Room Air 12/15/17 12:07 3 Laboratory Tests Test 12/16/17 05:20 White Blood Count 4.9 K/UL (4.8-10.8) Red Blood Count 4.76 M/UL (4.20-5.40) Hemoglobin 13.1 G/DL (12.0-16.0) Hematocrit 40.3 % (37.0-47.0) Mean Corpuscular Volume 85 FL (80-99) Mean Corpuscular Hemoglobin 27.5 PG (27.0-31.0) Mean Corpuscular Hemoglobin Concent 32.5 G/DL (32.0-36.0) Red Cell Distribution Width 12.7 % (11.6-14.8) Platelet Count 223 K/UL (150-450) Mean Platelet Volume 8.0 FL (6.5-10.1) Neutrophils (%) (Auto) 49.2 % (45.0-75.0) Lymphocytes (%) (Auto) 34.7 % (20.0-45.0) Monocytes (%) (Auto) 9.2 % (1.0-10.0) Eosinophils (%) (Auto) 5.2 % (0.0-3.0) H Basophils (%) (Auto) 1.7 % (0.0-2.0) Sodium Level 139 MMOL/L (136-145) Potassium Level 4.1 MMOL/L (3.5-5.1) Chloride Level 102 MMOL/L (98-107) Carbon Dioxide Level 30 MMOL/L (21-32) Anion Gap 8 mmol/L (5-15) Blood Urea Nitrogen 12 mg/dL (7-18) Creatinine 0.8 MG/DL (0.55-1.30) Estimat Glomerular Filtration Rate > 60 mL/min (>60) Glucose Level 117 MG/DL (74-106) H Calcium Level 9.1 MG/DL (8.5-10.1) Intake and Output 12/15/17 12/16/17 19:00 07:00 Intake Total 670 ml 340 ml Balance 670 ml 340 ml Intake Oral 420 ml 340 ml IV Total 250 ml # Voids 4 3 Objective General Appearance: WD/WN, no apparent distress, alert EENT: PERRL/EOMI, normal ENT inspection Neck: non-tender, normal alignment, supple, normal inspection Cardiovascular: normal peripheral pulses, normal rate, regular rhythm, no gallop/murmur, no JVD Respiratory/Chest: chest wall non-tender, lungs clear, normal breath sounds, no respiratory distress, no accessory muscle use Abdomen: no organomegaly, no mass, decreased bowel sounds, guarding, tender 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 S/P esophago-gastro duodenoscopy and endoscopic ultrasound 12/15/17. (4) Diabetes Assessment & Plan: Continue januvia and novolog (5) HTN (hypertension) Assessment & Plan: Continue norvasc (6) Gastritis Assessment & Plan: Start protonix Status: stable Bonilla Watt MD Dec 16, 2017 17:43
[2017-12-16] MEDS ORDERED: DiphenhydrAMINE 50mg/ml Inj IVP PRN (17:45)
[2017-12-16 20:00] VITALS: BP 143/82
[2017-12-16] MEDS: Miralax 17gm pkt ORAL SCH (20:54)
[2017-12-16] MEDS: Zolpidem 5mg tab ORAL PRN (22:58)
[2017-12-16] MEDS ORDERED: Fleet's Enema 133ml RECTAL SCH (23:00)
[2017-12-17] VITALS (9 sets, daily range): BP systolic 114–128; BP diastolic 64–87
[2017-12-17] MEDS: Morphine Sulfate 4mg/ml Inj (IV USE ONLY) IVP PRN (04:59)
[2017-12-17] MEDS: Heparin 5000 units/ml inj SUBQ SCH ×2 (05:30→14:00)
[2017-12-17] MEDS: NovoLOG Insulin Flexpen SUBQ SCH ×2 (05:40→11:30)
[2017-12-17] MEDS ORDERED: Fleet's Enema 133ml RECTAL SCH (06:00)
[2017-12-17 06:10] LABS: BASOPHILS % (AUTO) 1.8 % (0.0-2.0); HEMATOCRIT 39.7 % (37.0-47.0); HEMOGLOBIN 12.9 G/DL (12.0-16.0); LYMPHOCYTES % (AUTO) 28.1 % (20.0-45.0); MEAN CORPUSCULAR VOLUME 84 FL (80-99); MONOCYTES % (AUTO) 7.5 % (1.0-10.0); NEUTROPHILS % (AUTO) 58.7 % (45.0-75.0); PLATELET COUNT 234 K/UL (150-450); RED BLOOD COUNT 4.73 M/UL (4.20-5.40); RED CELL DISTRIBUTION WIDTH 12.6 % (11.6-14.8); WHITE BLOOD COUNT 5.3 K/UL (4.8-10.8)
[2017-12-17 06:21] LABS: INR 1.1 (0.9-1.1)
[2017-12-17 06:24] LABS: ANION GAP 6 mmol/L (5-15); BLOOD UREA NITROGEN 9 mg/dL (7-18); CALCIUM 8.7 MG/DL (8.5-10.1); CARBON DIOXIDE 29 MMOL/L (21-32); CHLORIDE 105 MMOL/L (98-107); CREATININE 0.7 MG/DL (0.55-1.30); SODIUM 140 MMOL/L (136-145)
[2017-12-17] MEDS ORDERED: Atropine Inj 1mg/10ml Syr IV PRN (08:00)
[2017-12-17] MEDS ORDERED: Midazolam 2mg/2ml Inj IVP PRN (08:00)
[2017-12-17] MEDS ORDERED: fentaNYL 100 mcg/2 mL IV PRN (08:00)
[2017-12-17] MEDS ORDERED: Labetalol 5mg/ml 20ml vial IV PRN (08:00)
[2017-12-17] MEDS ORDERED: DiphenhydrAMINE 50mg/ml Inj IVP PRN (08:00)
--- NOTE | 2017-12-17 08:02 | Anethesia Preoperative Eval ---
Anesthesia Pre-op PMH/ROS General Date of Evaluation: Dec 17, 2017 Time of Evaluation: 07:59 Anesthesiologist: julia ASA Score: ASA 3 Mallampati Score Class I : Soft palate, uvula, fauces, pillars visible Class II: Soft palate, uvula, fauces visible Class III: Soft palate, base of uvula visible Class IV: Only hard plate visible Mallampati Classification: Class II Surgeon: pooja Diagnosis: abdominal pain, constipation Surgical Procedure: colonoscopy Anesthesia History: none Social History: smoking - nonsmoker Family History: no anesthesia problems Allergies: Coded Allergies: No Known Allergies (Unverified , 09/22/14) Medications: see eMAR Past Medical History Cardiovascular: Reports: HTN; Denies: CAD, CO, valve dz, arrhythmia, other Pulmonary: Denies: asthma, COPD, SALLY, other Gastrointestinal/Genitourinary: Reports: other - constipation, abdominal pain, diverticulosis, epiastric pain, pancreatic cyst, gastritis, kidney stones; Denies: GERD, CRI, ESRD Neurologic/Psychiatric: Reports: depression/anxiety - bipolar disorder, other; Denies: dementia, CVA, TIA Endocrine: Reports: DM; Denies: hypothyroidism, steroids, other HEENT: Denies: cataract (L), cataract (R), glaucoma, ALUTIIQ (L), ALUTIIQ (R), other Hematology/Immune: Denies: anemia, DVT, bleeding disorder, other Musculoskeletal/Integumentary: Denies: OA, RA, DJD, DDD, edema, other Other: obesity PSxH Narrative: tonsillectomy, appendectomy, umbilical hernia repair Anesthesia Pre-op Phys. Exam Physician Exam Last Vital Signs Date Time Temp Pulse Resp B/P (MAP) Pulse Ox O2 Delivery O2 Flow Rate FiO2 12/17/17 04:00 97.9 73 18 114/64 (81) 97 97.9 12/16/17 21:00 Room Air 12/15/17 12:07 3 Constitutional: NAD Neurologic: CN 2-12 intact Cardiovascular: RRR Respiratory: CTA Gastrointestinal: S/NT/ND Airway Exam Mallampati Score: Class II MO: full Neck: supple TMD: 2fb ROM: limited Anesthesia Pre-op A/P Labs Hematology Test 12/17/17 05:10 White Blood Count 5.3 K/UL (4.8-10.8) Red Blood Count 4.73 M/UL (4.20-5.40) Hemoglobin 12.9 G/DL (12.0-16.0) Hematocrit 39.7 % (37.0-47.0) Mean Corpuscular Volume 84 FL (80-99) Mean Corpuscular Hemoglobin 27.2 PG (27.0-31.0) Mean Corpuscular Hemoglobin Concent 32.4 G/DL (32.0-36.0) Red Cell Distribution Width 12.6 % (11.6-14.8) Platelet Count 234 K/UL (150-450) Mean Platelet Volume 7.6 FL (6.5-10.1) Neutrophils (%) (Auto) 58.7 % (45.0-75.0) Lymphocytes (%) (Auto) 28.1 % (20.0-45.0) Monocytes (%) (Auto) 7.5 % (1.0-10.0) Eosinophils (%) (Auto) 4.0 % (0.0-3.0) H Basophils (%) (Auto) 1.8 % (0.0-2.0) Coagulation Test 12/17/17 05:10 Prothrombin Time 11.3 SEC (9.30-11.50) Prothromb Time International Ratio 1.1 (0.9-1.1) Activated Partial Thromboplast Time 26 SEC (23-33) Chemistry Test 12/17/17 05:10 Sodium Level 140 MMOL/L (136-145) Potassium Level 4.0 MMOL/L (3.5-5.1) Chloride Level 105 MMOL/L (98-107) Carbon Dioxide Level 29 MMOL/L (21-32) Anion Gap 6 mmol/L (5-15) Blood Urea Nitrogen 9 mg/dL (7-18) Creatinine 0.7 MG/DL (0.55-1.30) Estimat Glomerular Filtration Rate > 60 mL/min (>60) Glucose Level 125 MG/DL (74-106) H Calcium Level 8.7 MG/DL (8.5-10.1) Risk Assessment & Plan Assessment: asa3 Plan: mac Status Change Before Surgery: No Pre-Antibiotics Drug: Isa Matrel MD Dec 17, 2017 08:02
[2017-12-17] MEDS: Docusate 100mg cap ORAL SCH (08:08)
[2017-12-17] MEDS: Lactulose 10gm/15ml UDC ORAL SCH ×2 (08:08→13:00)
[2017-12-17] MEDS: Magnesium Oxide 400mg tab ORAL SCH (08:10)
[2017-12-17] MEDS: Ascorbic Acid 500mg tab ORAL SCH (08:11)
[2017-12-17] MEDS ORDERED: Lidocaine 1% MPF 10mg/ml 5ml ONE (09:00)
[2017-12-17] MEDS ORDERED: Propofol 200mg/20ml IV ONE (09:00)
[2017-12-17] MEDS ORDERED: NS 500ML IVPB ONE (09:06)
--- NOTE | 2017-12-17 09:07 | Pre-Procedure Note/Attestation ---
Pre-Procedure Note/Attestation Complete Prior to Procedure Planned Procedure: not applicable Procedure Narrative: colonoscopy Indications for Procedure Pre-Operative Diagnosis: abd pain and wt loss Attestation I attest that I discussed the nature of the procedure; its benefits; risks and complications; and alternatives (and the risks and benefits of such alternatives ), prior to the procedure, with the patient (or the patient's legal packaging sales representative). I attest that, if there was a reasonable possibility of needing a blood transfusion, the patient (or the patient's legal packaging sales representative) was given the [facility] standardized written summary, pursuant to the Abdullahi Damaso Blood Safety Act ([place] Health and Safety Code # 1645, as amended). I attest that I re-evaluated the patient just prior to the surgery and that there has been no change in the patient's H&P, except as documented below: Woodrow Mcintosh MD Dec 17, 2017 09:07
--- NOTE | 2017-12-17 09:31 | Endoscopy Procedure Note ---
Endoscopy Procedure Note General Indication for Procedure: abd pain Procedures Performed: colonoscopy Operative Findings/Diagnosis: hemorrhoids Specimen: none Pt Tolerated Procedure Well: Yes Estimated Blood Loss: none Anesthesia Anesthesiologist: julia Anesthesia: MAC Inserted Devices Implant(s) used?: No Quality Quality of Bowel Preparation: Fair Did scope reach the cecum?: Yes Was there any complications?: No GI Core Measures 50 yrs or older w/o bx or poly: Not Applicable 10yrs. F/U not recommended: Not Applicable Woodrow Mcintosh MD Dec 17, 2017 09:31
--- NOTE | 2017-12-17 09:54 | Immediate Post-Op Evaluation ---
Immediate Post-Op Evalulation Immediate Post-Op Evalulation Procedure: colonoscopy Date of Evaluation: Dec 17, 2017 Time of Evaluation: 09:48 IV Fluids: 250ml 0.9ns Blood Products: none Estimated Blood Loss: negligible Blood Pressure Systolic: 128 Blood Pressure Diastolic: 85 Pulse Rate: 63 Respiratory Rate: 18 O2 Sat by Pulse Oximetry: 100 Temperature (Fahrenheit): 97.0 Pain Score (1-10): 0 Nausea: No Vomiting: No Complications none Patient Status: awake, reacts, patent Hydration Status: adequate Drug: Isa Martel MD Dec 17, 2017 09:54
--- NOTE | 2017-12-17 09:56 | 48 Hour Post Anesthesia Eval ---
Post Anesthesia Evaluation Procedure: colonoscopy Date of Evaluation: Dec 17, 2017 Time of Evaluation: 09:54 Blood Pressure Systolic: 130 0: 86 Pulse Rate: 66 Respiratory Rate: 18 Temperature (Fahrenheit): 97.0 O2 Sat by Pulse Oximetry: 100 Airway: patent Nausea: No Vomiting: No Pain Intensity: 0 Hydration Status: adequate Cardiopulmonary Status: stable Mental Status/LOC: patient returned to baseline Post-Anesthesia Complications: none Follow-up care needed: N/A Isa Ruby MD Dec 17, 2017 09:56
--- NOTE | 2017-12-17 11:30 | Procedure Note ---
DATE OF PROCEDURE: 12/17/2017 SURGEON: Woodrow Mcintosh M.D. ANESTHESIOLOGIST: Dr. Hernandez. REFERRING PHYSICIAN: 1. Mike Griffin M.D. 2. Leanne Holland M.D. PROCEDURE: Colonoscopy. ANESTHESIA: Per Dr. Hernandez. INSTRUMENT: Olympus adult flexible colonoscope. INDICATION: Abdominal pain. The procedure, risks, benefits, and possible consequences, including hemorrhage, aspiration, perforation and infection, and alternative treatments, were explained to the patient/legal guardian by Dr. Woodrow Mcintosh and the patient/legal guardian understood and accepted these risks. DESCRIPTION OF PROCEDURE: After informed consent was obtained and the patient was adequately sedated, first rectal exam was performed which was positive for internal hemorrhoids. Then the scope was advanced from the rectum into the cecum documented by the appendiceal orifice, ileocecal valve, and right upper quadrant palpation. Quality of prep was fair. I would say about 10% to 15% of the colonic mucosa was not thoroughly examined given this prep. Otherwise, the patient had normal colonoscopy examination. No obvious mass, polyp, diverticulosis, or any other pathology was seen. Retroflexion of rectum showed evidence of small nonbleeding internal hemorrhoids. SUMMARY OF FINDINGS: 1. Fair colonoscopy prep. 2. Internal hemorrhoids. RECOMMENDATIONS: At this time, there was no obvious cause for the patient's abdominal pain. The patient had an EGD and EUS on this admission and also now colonoscopy. We will recommend outpatient followup for further management. I want to thank Dr. Griffin and Dr. Leanne Holland for this kind referral. Woodrow Mcintosh M.D. DR: Joao JOB#: [id number] CC: Mike Griffin M.D.; Fax#: [phone] LEANNE HOLLAND M.D. ; FAX#: [phone]
[2017-12-17] MEDS ORDERED: PROTONIX40 MG ORAL (13:23)
--- NOTE | 2017-12-17 13:25 | Internal Med Progress Note ---
Subjective Date of Service: Dec 17, 2017 Physician Name WattBonilla Attending Physician Mike Griffin MD Current Medications Medications (Trade) Dose Ordered Sig/Elizabeth Route PRN Reason Start Time Stop Time Status Last Admin Dose Admin Acetaminophen (Tylenol) 650 mg Q4H PRN ORAL Mild Pain/Temp > 100.5 12/15/17 13:45 01/14/18 13:44 12/16/17 03:48 Al Hydroxide/Mg Hydroxide (Mylanta) 15 ml Q1H PRN ORAL gi upset 12/17/17 08:00 12/17/17 16:00 Amlodipine Besylate (Norvasc) 5 mg DAILY ORAL 12/13/17 09:00 01/12/18 08:59 12/14/17 08:48 Ascorbic Acid (Vitamin C) 1,000 mg DAILY ORAL 12/13/17 09:00 01/12/18 08:59 12/16/17 08:47 Atropine Sulfate (Atropine) 0.5 mg Q5M PRN IV HR less than 45 BPM 12/17/17 08:00 12/17/17 16:00 Carisoprodol (Soma) 350 mg BID PRN ORAL Muscle Spasm 12/13/17 03:30 01/12/18 03:29 12/15/17 18:23 Cetylpyridinium Chloride (Cepacol) 1 lozg Q2H PRN PASCALE throat pain 12/16/17 11:15 01/15/18 11:14 12/16/17 11:22 Dextrose (Dextrose 50%) 25 ml STAT PRN IV Hypoglycemia 12/12/17 23:30 01/11/18 23:29 Dextrose (Dextrose 50%) 50 ml STAT PRN IV Hypoglycemia 12/12/17 23:30 01/11/18 23:29 Diphenhydramine HCl (Benadryl) 25 mg Q15M PRN IVP Itching 12/17/17 08:00 12/17/17 16:00 Diphenhydramine HCl (Benadryl) 25 mg Q4H PRN IVP Itching 12/16/17 17:45 01/15/18 17:44 12/16/17 18:52 Docusate Sodium (Colace) 100 mg TWICE A DAY ORAL 12/13/17 18:00 01/12/18 17:59 12/16/17 18:52 Fentanyl Citrate (Sublimaze 100 mcg/2 mL) 25 mcg Q10M PRN IV Moderate Pain (Pain Scale 4-6) 12/17/17 08:00 12/17/17 16:00 Heparin Sodium (Porcine) (Heparin 5000 units/ml) 5,000 units EVERY 8 HOURS SUBQ 12/12/17 23:45 01/11/18 23:44 12/16/17 06:11 Hydrocortisone (Anusol HC) 1 applic TWICE A DAY RECTAL 12/14/17 20:45 01/13/18 20:44 12/16/17 18:54 Insulin Aspart (NovoLOG) BEFORE MEALS AND HS SUBQ 12/13/17 06:30 01/12/18 06:29 12/16/17 17:31 Iopamidol (Isovue-300 100ml) 100 ml NOW PRN INJ Radiology Procedure 12/12/17 20:00 Labetalol HCl (Normodyne) 5 mg Q10M PRN IV SBP>160 / DBP>90 12/17/17 08:00 12/17/17 16:00 Lactulose (Cephulac) 10 gm THREE TIMES A DAY ORAL 12/13/17 13:00 01/12/18 12:59 12/16/17 18:52 Magnesium Oxide (Mag-Ox 400mg) 400 mg DAILY ORAL 12/13/17 09:00 01/12/18 08:59 12/16/17 08:47 Midazolam HCl (Versed 2mg/2ml vial) 1 mg Q15M PRN IVP For Anxiety 12/17/17 08:00 12/17/17 16:00 Mineral Oil (Mineral Oil) 30 ml DAILYPRN PRN ORAL Constipation 12/14/17 10:36 01/13/18 10:35 12/14/17 13:40 Morphine Sulfate (Morphine Sulfate) 4 mg Q4H PRN IVP For Pain 12/12/17 23:30 12/19/17 23:29 Morphine Sulfate (Morphine Sulfate) 6 mg Q4H PRN IVP Severe Pain (Pain Scale 7-10) 12/12/17 23:30 12/19/17 23:29 12/17/17 04:59 Ondansetron HCl (Zofran) 4 mg Q1H PRN IVP Nausea & Vomiting 12/17/17 08:00 12/17/17 16:00 Ondansetron HCl (Zofran) 4 mg Q4H PRN IVP Nausea & Vomiting 12/12/17 23:30 01/11/18 23:29 12/17/17 04:57 Pantoprazole (Protonix) 40 mg DAILY ORAL 12/17/17 09:00 01/16/18 08:59 Polyethylene Glycol (Miralax) 17 gm BEDTIME ORAL 12/13/17 21:00 01/12/18 20:59 12/16/17 20:54 Quetiapine Fumarate (SEROquel) 50 mg BEDTIME ORAL 12/13/17 00:00 01/12/18 20:59 12/16/17 20:54 Sitagliptin Phosphate (Januvia) 100 mg DAILY ORAL 12/13/17 09:00 01/12/18 08:59 12/16/17 08:47 Zolpidem Tartrate (Ambien) 10 mg BEDTIME PRN ORAL Insomnia 12/13/17 21:00 12/20/17 20:59 12/16/17 22:58 Allergies: Coded Allergies: No Known Allergies (Unverified , 09/22/14) ROS Limited/Unobtainable: No Constitutional: Reports: no symptoms HEENT: Reports: no symptoms Cardiovascular: Reports: no symptoms Respiratory: Reports: no symptoms Gastrointestinal/Abdominal: Reports: no symptoms Genitourinary: Reports: no symptoms Neurologic/Psychiatric: Reports: no symptoms Subjective 57 YO F admitted with epigastric pain. S/P endoscopy and endoscopic ultrasound 12/15/17. S/P colonoscopy 12/17/17. Cover for Int jovita-Dr Griffin Objective Last Vital Signs Date Time Temp Pulse Resp B/P (MAP) Pulse Ox O2 Delivery O2 Flow Rate FiO2 12/17/17 12:00 97.7 70 18 123/87 (99) 97 97.7 12/17/17 10:01 Room Air 12/15/17 12:07 3 Laboratory Tests Test 12/17/17 05:10 White Blood Count 5.3 K/UL (4.8-10.8) Red Blood Count 4.73 M/UL (4.20-5.40) Hemoglobin 12.9 G/DL (12.0-16.0) Hematocrit 39.7 % (37.0-47.0) Mean Corpuscular Volume 84 FL (80-99) Mean Corpuscular Hemoglobin 27.2 PG (27.0-31.0) Mean Corpuscular Hemoglobin Concent 32.4 G/DL (32.0-36.0) Red Cell Distribution Width 12.6 % (11.6-14.8) Platelet Count 234 K/UL (150-450) Mean Platelet Volume 7.6 FL (6.5-10.1) Neutrophils (%) (Auto) 58.7 % (45.0-75.0) Lymphocytes (%) (Auto) 28.1 % (20.0-45.0) Monocytes (%) (Auto) 7.5 % (1.0-10.0) Eosinophils (%) (Auto) 4.0 % (0.0-3.0) H Basophils (%) (Auto) 1.8 % (0.0-2.0) Prothrombin Time 11.3 SEC (9.30-11.50) Prothromb Time International Ratio 1.1 (0.9-1.1) Activated Partial Thromboplast Time 26 SEC (23-33) Sodium Level 140 MMOL/L (136-145) Potassium Level 4.0 MMOL/L (3.5-5.1) Chloride Level 105 MMOL/L (98-107) Carbon Dioxide Level 29 MMOL/L (21-32) Anion Gap 6 mmol/L (5-15) Blood Urea Nitrogen 9 mg/dL (7-18) Creatinine 0.7 MG/DL (0.55-1.30) Estimat Glomerular Filtration Rate > 60 mL/min (>60) Glucose Level 125 MG/DL (74-106) H Calcium Level 8.7 MG/DL (8.5-10.1) Intake and Output 12/16/17 12/17/17 19:00 07:00 Intake Total 400 ml Balance 400 ml Intake Oral 400 ml # Voids 4 2 Objective General Appearance: WD/WN, no apparent distress, alert EENT: PERRL/EOMI, normal ENT inspection Neck: non-tender, normal alignment, supple, normal inspection Cardiovascular: normal peripheral pulses, normal rate, regular rhythm, no gallop/murmur, no JVD Respiratory/Chest: chest wall non-tender, lungs clear, normal breath sounds, no respiratory distress, no accessory muscle use Abdomen: no organomegaly, no mass, decreased bowel sounds, guarding, tender 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 S/P esophago-gastro duodenoscopy and endoscopic ultrasound 12/15/17. (4) Diabetes Assessment & Plan: Continue januvia and novolog (5) HTN (hypertension) Assessment & Plan: Continue norvasc (6) Gastritis Assessment & Plan: Start protonix (7) Constipation Assessment & Plan: S/P colonoscopy 12/17/17 Assessment/Plan Discharge home today; follow up dr Holland 12/29/17 Bonilla Watt MD Dec 17, 2017 13:25
--- NOTE | 2017-12-18 11:46 | Discharge Summary ---
Discharge Summary Discharge Summary _ DATE OF ADMISSION: 12/12/2017 DATE OF DISCHARGE: 12/17/2017 CONSULTANTS: Dr. Woodrow Stafford BRIEF HOSPITAL COURSE: Patient is a 57-year-old -[place] female, who presented with chief complaint of abdominal pain. The patient was admitted to [facility] in May 2017, due to pancreatitis. He had been followed as outpatient by Dr. Leanne Holland. Patient had been diagnosed with enlarged lymph nodes around hepatic portal vein which was biopsied at [facility]. History of present illness started on 12/07/2017 when she began to experience abdominal pain that intensified over the last week. She was unable to tolerate po liquids or solids. She was evaluated by Dr. Holland and was given IV fluids in the clinic. She was then transferred to [facility] for esophageal ultrasound of the enlarged lymph nodes. She has medical history significant for type 2 diabetes, hypertension, and depression. On evaluation at ED, vital signs were stable. Blood work was unremarkable. Lipase was negative. AST was 12. She continued to have persistent pain unresponsive to morphine. CT of the abdomen and pelvis did not show any acute findings. She was then admitted for evaluation of abdominal pain/enlarged intra -abdominal lymph nodes. He underwent GI evaluation Dr. Woodrow Mcintosh. She was given amlodipine for high blood pressure. She was given bowel regimen with Colace, MiraLAX and lactulose. She was placed on Protonix. On 12/15/2017, she underwent EGD with biopsy and endoscopic ultrasound. Findings showed gastritis, there were 2 pancreatic cysts seen, 14.5 mm in the body and another 5 mm in the head suspicious coming off from pancreatic duct, most probably side branch IPMN. Given the size of the cyst which is very small, recommended observation and repeat imaging in a year. She still could not tolerate diet and was continued to have abdominal pain. She was placed on clear liquid diet she was given pain management. On 2017, she underwent colonoscopy. Colonoscopy had normal exam with no obvious mass, polyp, diverticulosis or any pathology. There was presence of internal hemorrhoids. There was no obvious cause for patient's abdominal pain. He was recommended and follow-up. Patient has bipolar disorder and was complaining of anxiety and insomnia. She was continued on Seroquel daily at bedtime. Blood glucose was monitored. He was continued on Januvia 100 mg daily and was placed on insulin NovoLog sliding scale. Diet was advanced. She was eventually cleared for discharge home. To follow- up as outpatient. FINAL DIAGNOSES: Abdominal pain status post EGD and endoscopic ultrasound Intra-abdominal lymphadenopathy Two pancreatic cyst Constipation status post colonoscopy Gastritis Diabetes mellitus Intra-abdominal lymphadenopathy Bipolar disorder Internal hemorrhoids DISPOSITION: Patient was discharged home. DISCHARGE MEDICATIONS: Refer to Discharge Medication List. DISCHARGE INSTRUCTIONS: Follow up with PCP in a week. I have been assigned to dictate discharge summary on this account, and I was not involved in the patient's management. Lexi Melchor NP Dec 18, 2017 11:46
== END 2017-12-17 15:30 | disposition home or self-care (01) | DRG 815 ==
LOC: EMR 17:55 → 4E 19:34 → EDBEDREQ 19:40
PROC: 0DJ08ZZ Inspection of Upper Intestinal Tract, Via Natural or Artificial Opening Endoscopic (ICD-10-PCS; principal; 2017-12-15 11:36)
PROC: 0DJD8ZZ Inspection of Lower Intestinal Tract, Via Natural or Artificial Opening Endoscopic (ICD-10-PCS; 2017-12-17)
DX: R59.0 Localized enlarged lymph nodes (principal); K86.2 Cyst of pancreas; I10 Essential (primary) hypertension; R10.13 Epigastric pain; F32.9 Major depressive disorder, single episode, unspecified; K21.9 Gastro-esophageal reflux disease without esophagitis; F31.9 Bipolar disorder, unspecified; E11.9 Type 2 diabetes mellitus without complications; K59.00 Constipation, unspecified; K57.90 Diverticulosis of intestine, part unspecified, without perforation or abscess without bleeding; E66.9 Obesity, unspecified; K29.70 Gastritis, unspecified, without bleeding; K64.8 Other hemorrhoids
CPT/HCPCS: 36415; 74177; 80048; 80053; 81003; 82270; 82378; 82962; 83690; 83735; 84100; 84484; 85025; 85610; 85730; 86850; 86900; 86901; 93005; 93970; 94003; 94150; J1815; J2250; J2405

== ENCOUNTER 2019-02-09 08:31 | Outpatient (CLI) | payer MEDICARE, OTHER ==
[~2019-02-09 08:31] MED LIST changes: +AMBIEN10 MG ORAL; +AMBIEN5 M1 PO; +AMLODIPINE BESY10 MG ORAL; +CALCIUM500 M2 PO; +COLOSTRUM500 MG PO; +JANUVIA25 MG ORAL; +L-TRYPTOPHAN500 MG PO; +MAGNESIUM250 M2 PO; +MARINOL10 MG ORAL; +MARINOL2.5 MG ORAL; +MELATONIN3 MG ORAL; +MULTIVITAMINS1 EAC2 ORAL; +OIL OF OREGAN1500 MG PO; +PROTONIX40 MG ORAL; +SEROQUEL50 MG ORAL; +TRAMADOL HCL100 M2 ORAL; +TRAMADOL HCL50 MG ORAL; +VITAMIN C500 M1 ORAL; +VITAMIN D400 INTLU ORAL
[2019-02-09 09:00] VITALS: BP 131/78
[2019-02-09] MEDS ORDERED: METFORMIN HCL500 M1 ORAL (13:52)
[2019-02-09] MEDS ORDERED: OMEPRAZOLE40 M1 ORAL (13:52)
[2019-02-09] MEDS ORDERED: INHALER (13:52)
[2019-02-09] MEDS ORDERED: DEPAKOTE ER250 MG ORAL (13:52)
[2019-02-09] MEDS ORDERED: FLONASE ALLERG9.9 ML NS (13:52)
[2019-02-09] MEDS ORDERED: DEPAKOTE ER500 MG ORAL (13:52)
[2019-02-09] MEDS ORDERED: SEROQUEL100 MG ORAL (13:52)
[2019-02-09] MEDS ORDERED: SYNJARDY 12.5-1 EACH PO (13:52)
[2019-02-09] MEDS ORDERED: LATUDA80 MG PO (13:55)
--- NOTE | 2019-02-10 15:09 | General Progress Note ---
Assessment/Plan Problem List: (1) Gastritis ICD Codes: K29.70 - Gastritis, unspecified, without bleeding SNOMED: 0287198 (2) Pancreatic cyst ICD Codes: K86.2 - Cyst of pancreas SNOMED: 16696218 (3) Obesity ICD Codes: E66.9 - Obesity SNOMED: 044245032 (4) Bipolar 1 disorder, depressed ICD Codes: F31.9 - Bipolar disorder, unspecified SNOMED: 49928458 (5) Diverticulosis ICD Codes: K57.90 - Diverticulosis SNOMED: 212410152 (6) Constipation ICD Codes: K59.00 - Constipation, unspecified SNOMED: 09751505 Assessment/Plan: SUMMARY OF FINDINGS: 1. Fair colonoscopy prep. 2. Internal hemorrhoids. plan EUS for panc cyst needs repeat colonoscopy in one year Subjective ROS Limited/Unobtainable: Yes Allergies: Coded Allergies: No Known Allergies (Unverified , 09/22/14) Objective General Appearance: alert EENT: normal ENT inspection Neck: supple Cardiovascular: normal rate Respiratory/Chest: decreased breath sounds Abdomen: normal bowel sounds, non tender, soft Extremities: non-tender Woodrow Mcintosh MD Feb 10, 2019 15:09
== END 2019-02-09 13:09 | disposition home or self-care (01) ==
LOC: PAN 08:31
DX: K29.70 Gastritis, unspecified, without bleeding (principal); K86.2 Cyst of pancreas; E66.9 Obesity, unspecified; F31.9 Bipolar disorder, unspecified; K57.90 Diverticulosis of intestine, part unspecified, without perforation or abscess without bleeding; K59.00 Constipation, unspecified; K64.8 Other hemorrhoids

== ENCOUNTER 2019-02-12 07:13 | Day surgery (SDC) | payer MEDICARE, OTHER ==
[~2019-02-12] VITALS: Ht 172.7 cm; Wt 90.7 kg
[2019-02-12] VITALS (8 sets, daily range): BP systolic 127–148; BP diastolic 84–94
[~2019-02-12 07:13] MED LIST changes: +DEPAKOTE ER250 MG ORAL; +DEPAKOTE ER500 MG ORAL; +FLONASE ALLERG9.9 ML NS; +INHALER; +LATUDA80 MG PO; +LR 1000ml 1,000 ML IVLG SCH; +METFORMIN HCL500 M1 ORAL; +SYNJARDY 12.5-1 EACH PO
[2019-02-12] MEDS ORDERED: ACYCLOVIR400 MG ORAL (08:02)
[2019-02-12] MEDS ORDERED: JARDIANCE PO (08:02)
[2019-02-12] MEDS ORDERED: LR 1000ml 1,000 ML IVLG SCH (08:24)
--- NOTE | 2019-02-12 08:24 | Anethesia Preoperative Eval ---
Anesthesia Pre-op PMH/ROS General Date of Evaluation: Feb 12, 2019 Anesthesiologist: Sánchez ASA Score: ASA 3 Mallampati Score Class I : Soft palate, uvula, fauces, pillars visible Class II: Soft palate, uvula, fauces visible Class III: Soft palate, base of uvula visible Class IV: Only hard plate visible Mallampati Classification: Class III Surgeon: Arnaldo Diagnosis: pancreatic cyst Surgical Procedure: EUS Anesthesia History: none Family History: no anesthesia problems Allergies: Coded Allergies: No Known Allergies (Unverified , 02/12/19) Medications: see eMAR Patient NPO?: Yes NPO Date: Feb 11, 2019 NPO Time: 22:00 Past Medical History Cardiovascular: Reports: HTN; Denies: CAD, SD, valve dz, arrhythmia, other Pulmonary: Denies: asthma, COPD, SALLY, other Gastrointestinal/Genitourinary: Reports: GERD - gastritis, other - pancreatitis ; Denies: CRI, ESRD Neurologic/Psychiatric: Reports: depression/anxiety - bipolar; Denies: dementia, CVA, TIA, other Endocrine: Reports: DM; Denies: hypothyroidism, steroids, other HEENT: Denies: cataract (L), cataract (R), glaucoma, HOPLAND (L), HOPLAND (R), other Hematology/Immune: Denies: anemia, DVT, bleeding disorder, other Musculoskeletal/Integumentary: Denies: OA, RA, DJD, DDD, edema, other Other: obesity PSxH Narrative: UHR, lap appy, LEONIDES, T&A Anesthesia Pre-op Phys. Exam Physician Exam Last Vital Signs Date Time Temp Pulse Resp B/P (MAP) Pulse Ox O2 Delivery O2 Flow Rate FiO2 02/12/19 08:03 Room Air 02/12/19 07:56 97.3 84 18 127/87 98 Constitutional: NAD Cardiovascular: RRR Respiratory: CTA Airway Exam Mallampati Score: Class III Anesthesia Pre-op A/P Labs see chart Studies Pre-op Studies: EKG - sr Risk Assessment & Plan Assessment: ASA III Plan: MAC Status Change Before Surgery: No Pre-Antibiotics Drug: N/A Makenzie Flores MD Feb 12, 2019 08:24
[2019-02-12] MEDS ORDERED: DiphenhydrAMINE 50mg/ml Inj IVP PRN (08:30)
[2019-02-12] MEDS ORDERED: Propofol 200mg/20ml IV ONE (09:00)
[2019-02-12] MEDS ORDERED: Lidocaine 1% MPF 10mg/ml 5ml ONE (09:00)
--- NOTE | 2019-02-12 09:00 | Pre-Procedure Note/Attestation ---
Pre-Procedure Note/Attestation Complete Prior to Procedure Planned Procedure: not applicable Procedure Narrative: eus Indications for Procedure Pre-Operative Diagnosis: pancreatic cyst Attestation I attest that I discussed the nature of the procedure; its benefits; risks and complications; and alternatives (and the risks and benefits of such alternatives ), prior to the procedure, with the patient (or the patient's legal personal service representative). I attest that, if there was a reasonable possibility of needing a blood transfusion, the patient (or the patient's legal personal service representative) was given the [facility] standardized written summary, pursuant to the Abdullahi Damaso Blood Safety Act ([place] Health and Safety Code # 1645, as amended). I attest that I re-evaluated the patient just prior to the surgery and that there has been no change in the patient's H&P, except as documented below: Woodrow Mcintosh MD Feb 12, 2019 09:00
--- NOTE | 2019-02-12 09:01 | Short Stay Surgery H&P ---
History of Present Illness History of Present Illness Chief Complaint panc cyst HPI Agata Conley is a 58 year old female who was admitted on for GERD Patient History Allergies: Coded Allergies: No Known Allergies (Unverified , 02/12/19) PAST MEDICAL HISTORY: (1) Diabetes (2) HTN (hypertension) (3) Bipolar 1 disorder (4) Diverticulosis (5) Gastritis (6) Pancreatic cyst Medication History Scheduled Acyclovir* (Acyclovir*), 800 MG ORAL BID, (Reported) Amlodipine Besylate* (Amlodipine Besylate*), 10 MG ORAL DAILY, (Reported) Divalproex Sodium* (Depakote Er*), 500 MG ORAL EVERY 12 HOURS, (Reported) Fluticasone Propionate (Flonase Allergy Relief), 9.9 ML NS PRN, (Reported) Lurasidone Hcl (Latuda), 80 MG PO DAILY, (Reported) Metformin Hcl* (Metformin Hcl*), 500 MG ORAL TID, (Reported) Omeprazole (Omeprazole), 40 MG ORAL DAILY, (Reported) Quetiapine Fumarate* (Seroquel*), 300 MG ORAL QHS, (Reported) [Jardiance], 100 MG PO DAILY, (Reported) Miscellaneous Medications [Inhaler], (Reported) Discontinued Medications Ascorbic Acid* (Vitamin C*), 1,000 MG ORAL DAILY, (Reported) Discontinued Reason: Pt stopped taking med Calcium Carbonate (Calcium), 500 MG PO DAILY, (Reported) Discontinued Reason: Pt stopped taking med Carisoprodol* (Soma*), 350 MG PO BID PRN for Muscle Spasm, (Reported) Discontinued Reason: MD discontinued med Colostrum, Bovine (Colostrum), 500 MG PO DAILY, (Reported) Discontinued Reason: MD discontinued med Dronabinol* (Marinol*), 2.5 MG ORAL DAILY PRN for Nausea & Vomiting, (Reported) Discontinued Reason: MD discontinued med Levocetirizine Dihydrochloride (Xyzal), 5 MG ORAL DAILY PRN for Itching, ( Reported) Discontinued Reason: Pt stopped taking med Magnesium Oxide (Magnesium), 250 MG PO DAILY, (Reported) Discontinued Reason: Pt stopped taking med Melatonin (Melatonin), 3 MG ORAL BEDTIME PRN for Insomnia, (Reported) Discontinued Reason: Pt stopped taking med Multivitamins* (Multivitamins*), 1 TAB ORAL DAILY, (Reported) Discontinued Reason: Pt stopped taking med Oregano Oil (Oil Of Oregano), 1,500 MG PO DAILY, (Reported) Discontinued Reason: Pt stopped taking med Pantoprazole* (Protonix*), 40 MG ORAL DAILY Discontinued Reason: MD discontinued med Quetiapine Fumarate (Seroquel), 50 MG ORAL BEDTIME, (Reported) Discontinued Reason: Medication dose changed Sitagliptin (Januvia), 100 MG ORAL DAILY, (Reported) Discontinued Reason: MD discontinued med Tramadol Hcl* (Ultram*), 50 MG ORAL THREE TIMES A DAY PRN for For Pain, ( Reported) Discontinued Reason: MD discontinued med Tryptophan (L-Tryptophan), 500 MG PO DAILY, (Reported) Discontinued Reason: MD discontinued med Vitamin D (Vitamin D3), 40,000 UNITS ORAL DAILY, (Reported) Discontinued Reason: MD discontinued med Zolpidem Tartrate* (Ambien*), 10 MG ORAL BEDTIME, (Reported) Discontinued Reason: MD discontinued med Review of Systems Cardiovascular: Reports: no symptoms Respiratory: Reports: no symptoms Skeletal: Reports: no symptoms Gastrointestinal: Reports: no symptoms Genitourinary: Reports: no symptoms Neurologic: Reports: no symptoms Endocrine: Reports: no symptoms Hematologic: Reports: no symptoms Physical Exam Vital Signs Last Vital Signs Date Time Temp Pulse Resp B/P (MAP) Pulse Ox O2 Delivery O2 Flow Rate FiO2 02/12/19 08:03 Room Air 02/12/19 07:56 97.3 84 18 127/87 98 Skin: normal HENT: normal Heart: normal Lungs: normal Abdomen: normal Extremities: normal Plan Plan of Care EUS Attestation Are the patient's medical conditions optimized for surgery? Attestation Response: yes Woodrow Mcintosh MD Feb 12, 2019 09:01
--- NOTE | 2019-02-12 09:44 | Endoscopy Procedure Note ---
Endoscopy Procedure Note General Indication for Procedure: pancreatic cyst Procedures Performed: other - EUS Operative Findings/Diagnosis: same Specimen: none Pt Tolerated Procedure Well: Yes Estimated Blood Loss: none Anesthesia Anesthesiologist: eric Anesthesia: MAC Inserted Devices Implant(s) used?: No GI Core Measures 50 yrs or older w/o bx or poly: Not Applicable 10yrs. F/U recommended: Not Applicable Woodrow Mcintosh MD Feb 12, 2019 09:44
--- NOTE | 2019-02-12 09:48 | Immediate Post-Op Evaluation ---
Immediate Post-Op Evalulation Immediate Post-Op Evalulation Procedure: EUS Date of Evaluation: Feb 12, 2019 Time of Evaluation: 09:50 IV Fluids: 400 Blood Products: 0 Estimated Blood Loss: 0 Urinary Output: 0 Blood Pressure Systolic: 139 Blood Pressure Diastolic: 88 Pulse Rate: 91 Respiratory Rate: 16 O2 Sat by Pulse Oximetry: 100 Temperature (Fahrenheit): 97.4 Pain Score (1-10): 0 Nausea: No Vomiting: No Complications 0 Patient Status: awake, reacts, patent, none Hydration Status: adequate Drug: N/A Makenzie Flores MD Feb 12, 2019 09:48
--- NOTE | 2019-02-12 09:49 | 48 Hour Post Anesthesia Eval ---
Post Anesthesia Evaluation Procedure: EUS Date of Evaluation: Feb 12, 2019 Airway: patent Nausea: No Vomiting: No Pain Intensity: 0 Hydration Status: adequate Cardiopulmonary Status: at baseline Mental Status/LOC: patient returned to baseline Post-Anesthesia Complications: 0 Follow-up care needed: ready to discharge Makenzie Flores MD Feb 12, 2019 09:49
--- NOTE | 2019-02-13 01:00 | Procedure Note ---
DATE OF PROCEDURE: 02/12/2019 SURGEON: Woodrow Mcintosh M.D. PROCEDURE: . ANESTHESIA: Per Dr. Pozo. INSTRUMENT: Olympus EUS scope. INDICATION: Pancreatic cyst. REASON FOR PROCEDURE: The procedure, risks, benefits, and possible consequences, including hemorrhage, aspiration, perforation and infection, and alternative treatments, were explained to the patient/legal guardian by Dr. Woodrow Mcintosh and the patient/legal guardian understood and accepted these risks. PROCEDURE IN DETAIL: After informed consent was obtained and the patient was adequately sedated, EUS scope was advanced from mouth into second portion of duodenum. Pancreatic parenchyma was carefully examined through the gastroduodenal mucosa. Starting scanning at GE junction, celiac axis was evaluated. There was no obvious celiac axis lymphadenopathy. Left adrenal gland was seen without any adenoma. Pancreatic body and tail was examined while the scope was kept in the stomach. There was evidence of a small cyst in the body of the stomach. This cyst measured roughly about 4 mm. It seems to look like a simple cyst, I cannot see if it is connected to the pancreatic duct or not because the pancreatic duct is extremely small in the body and tail of the pancreas. So, I doubted. There was another cyst in the tail of the pancreas. This also seems to be not connected to the pancreatic duct. This one measured roughly about 7 mm, looks like a simple cyst. Then scope was advanced into the duodenal bulb and second portion of duodenum where the head of the pancreas was examined. There was a focal dilation of the pancreatic duct, right at the ampulla. We can see the pancreatic duct coming from the genu all the way down to the head and also there was a focal dilatation right at the ampulla. Pancreatic duct measured roughly about 4.5 mm at the ampulla. The significance of these are not clear at this time. There was no common bile duct dilatation. Common bile duct measured roughly about 3 mm. The patient tolerated the procedure well without any complication. SUMMARY OF FINDINGS: 1. Simple looking cyst in the body of the pancreas. Seems not be connected to the pancreatic duct, measured roughly about 4 mm. 2. Another simple looking cyst in the tail, measured roughly about 7 mm. Also does not seem to be connected to pancreatic duct. 3. A 4.5 mm focal dilation of the pancreatic duct at the head of the pancreas at the opening of the ampulla of unknown significance. 4. Common bile duct measured roughly 3 mm. RECOMMENDATIONS: At this time, we will recommend observation. The patient to have another either EUS or imaging study in a year to follow up on these cysts. No need for fine needle aspiration at this time, given this simple looking cyst and the size of only 7 mm. I want to thank, Dr. Leanne Holland, for this kind referral. Woodrow Mcintosh M.D. DR: OPAL JOB#: [id number] CC: Leanne Holland M.D.; Fax#: [phone]
== END 2019-02-12 11:50 | disposition home or self-care (01) ==
LOC: GAS 07:13
DX: K86.2 Cyst of pancreas (principal); E11.9 Type 2 diabetes mellitus without complications; I10 Essential (primary) hypertension; F31.9 Bipolar disorder, unspecified; K57.90 Diverticulosis of intestine, part unspecified, without perforation or abscess without bleeding; F41.9 Anxiety disorder, unspecified; E66.9 Obesity, unspecified; Z90.89 Acquired absence of other organs; Z68.30 Body mass index [BMI] 30.0-30.9, adult; Z79.899 Other long term (current) drug therapy; Z79.84 Long term (current) use of oral hypoglycemic drugs
CPT/HCPCS: 43231; 82962; 93005; J2704; 94003; 94150